=== PATIENT | female | born 1945 | race Caucasian/White ===

== ENCOUNTER 2024-04-12 23:43 | Inpatient (IN) | payer OTHER, SELFPAY ==
[2024-04-12 14:09] VITALS: BMI 51.4
[2024-04-12 14:10] VITALS: BP 164/61
[2024-04-12 14:33] LABS: % Basophils 0.3 % (0-2); % Eosinophils 0.8 % (0-6); % Immature Granulocytes 0.5 % (0-0.5); % Lymphocytes 11.7 % (20.5-51.1); % Monocytes 4.4 % (1.7-9.3); % Neutrophils 82.3 % (42.2-75.2); Absolute Eosinophils 0.1 10^3/uL (0-0.7); Absolute Monocytes 0.4 10^3/uL (0.1-0.6); Absolute Neutrophils 7.3 10^3/uL (1.4-6.5); Hemoglobin 7.2 g/dL (12.0-16.0); Mean Corp Hgb Conc. 34.3 g/dL (33.0-37.0); Mean Corpuscular Hgb 33.3 pg (27.0-31.0); Mean Corpuscular Volume 97.2 fL (81.0-99.0); Mean Platelet Volume 11.1 fL (7.4-10.4); Nucleated Red Blood Cells % 0 %; Platelet Count 217 10^3/uL (130-400); Red Blood Cell Count 2.16 10^6/uL (4.20-5.40); Red Cell Dist. Width 12.6 % (11.5-14.5); White Blood Cell Count 8.8 10^3/uL (4.8-10.8)
[2024-04-12 14:52] LABS: ALT (SGPT) 16 U/L (0-35); AST (SGOT) 30 U/L (14-36); Albumin 3.8 g/dl (3.5-5.0); Alkaline Phosphatase 136 U/L (38-126); Blood Urea Nitrogen 41 mg/dl (7-17); Calcium 8.7 mg/dl (8.4-10.2); Carbon Dioxide 16 mmol/L (22-30); Chloride 108 mmol/L (98-107); Estimated Creatinine Clearance 22 ml/min; Glucose 150 mg/dl (70-99); Potassium 5.2 mmol/L (3.5-5.1); Sodium 136 mmol/L (135-145); Total Bilirubin 0.5 mg/dl (0.2-1.3); Total Protein 6.2 g/dl (6.3-8.2); eGFR 16.17
--- NOTE | 2024-04-12 15:01 | ED.GENMED ---
History of Present Illness
<Mariela Gallagher PA-C - Last Filed: 04/12/24 23:59>
General
Chief Complaint: Vaginal Bleeding
Source: patient
Exam Limitations: none
Time Seen by Provider: 04/12/24 14:54
Nursing documentation reviewed up to this point in time: agreed with
History of Present Illness
History of Present Illness:
78-year-old female with past medical history of diabetic nephropathy, sleep apnea, hypertension, morbid obesity bedbound at baseline, presenting emergency department today with concerns of persistent vaginal bleeding. Patient reports that she has
known mass within her abdomen, she is unsure exactly where the mass is, unsure of the character of the mass. Believes it may be uterine mass. States that this mass causes her to have bleeding once a month. Her bleeding will usually last a week
and then resolved. She states that she has had to have blood transfusions in the past for this bleeding. She states that the bleeding this month has been a lot heavier and has persisted over a week. Patient states that she has been passing clots.
Patient states that her stools been darker but states that this is a chronic finding as she takes an iron supplement. Patient denies abdominal pain, fevers or chills. Patient denies bleeding with bowel movements. Patient denies any rectal pain.
Patient states that she saw a chronic colonic oncologist many years ago for this problem and they talk about possibly doing a hysterectomy or D&C, however they made the decision not to intervene due to her being bedbound. Patient currently only
sees a primary care doctor and construction administrative assistant, but no longer seeks care for this mass.
Review of Systems
<Mariela Gallagher PA-C - Last Filed: 04/12/24 23:59>
Review of Systems
All Other Systems: ROS reviewed and negative except as documented in HPI and ROS
Phy Exam
<Mariela Gallagher PA-C - Last Filed: 04/12/24 23:59>
Physical Exam
Physical Exam:
General: Patient is well appearing and in no acute distress; non-toxic
Skin: Warm and dry, no rashes or lesions
Head: Normocephalic, atraumatic
Eyes: Sclera non-icteric. EOMs intact. PERRLA.
Cardiac: Regular rate and rhythm, no murmur
Peripheral Vascular: Bilateral lower extremity edema
Pulm: Normal respiratory effort
Abdomen: No abdominal tenderness to palpation
Genitourinary: Active bleeding seen at the vaginal introitus. No external genital masses or lesions. No masses or lesions within the vaginal vault. Active bleeding from cervical os. No cervical masses or lesions. External hemorrhoids noted,
they are not actively bleeding. No rectal tears or lesions.
Neuro: CN II-XII intact, no focal neurologic deficits.
Psychiatric: Appropriate mood and affect.
Course
<Mariela Gallagher PA-C - Last Filed: 04/12/24 23:59>
Orders/Labs/Results
Orders:
Orders
04/12/24 14:27
Complete Blood Count/With Diff Urgent
Comprehensive Metabolic Panel Urgent
04/12/24 15:29
Type+Screen Urgent
04/12/24 16:29
Iohexol [Omnipaque] See Protocol PO NOW STA
04/12/24 16:30
CT Abd/pel (oral only)-[facility] Only Urgent
Comment:
Reason For Exam: persistent vaginal bleeding, intraabdominal mass
04/12/24 17:26
Blood Bank Products [* Blood Bank Products] Urgent
Blood Bank Products: *Packed RBC Leuko(PRBC's)
Quantity: 1
Transfuse Today: Yes
Reason: Bleeding
04/12/24 21:12
Tranexamic Acid 1000 mg/100 ml [Tranexamic Acid] 1,000 mg in 100 ml IV ONCE
04/12/24 23:43
Admit/Transfer Patient As Directed
Co-Sign Provider:
Level of Care: Inpatient admission
Assign to:: Telemetry
Physician / Group: Grabiel
Diagnosis: DUB, Acute Blood Loss Anemia
Reason for Telemetry: Arrhythmia
Date to Stop Telemetry: 04/15/24
Time to Stop Telemetry: 11:00
Reason for Hospitalization: DUB, Acute Blood Loss Anemia
Expected length of stay greater than two midnights?: Yes
ELOS- Estimated Length of Stay in days: 4
I certify the patient meets the requirements for IP care: Yes
Code Status As Directed
Resuscitation Status: Do not resuscitate
Reached after discussion with pt or family/Healthcare POA: Yes
04/12/24 23:44
DNR Bracelet Application ONCE
04/15/24 11:00
DC Protocol for Telemetry ONCE
Abnormal Lab Results
04/12/24 04/12/24
14:27 15:29
RBC 2.16 L 10^6/uL
(4.20-5.40)
Hgb 7.2 L g/dL
(12.0-16.0)
Hct 21.0 L %
(37.0-47.0)
MCH 33.3 H pg
(27.0-31.0)
MPV 11.1 H fL
(7.4-10.4)
Absolute Neuts (auto) 7.3 H 10^3/uL
(1.4-6.5)
Absolute Lymphs (auto) 1.0 L 10^3/uL
(1.2-3.4)
Neutrophils % 82.3 H %
(42.2-75.2)
Lymphocytes % 11.7 L %
(20.5-51.1)
Potassium 5.2 H mmol/L
(3.5-5.1)
Chloride 108 H mmol/L
(98-107)
Carbon Dioxide 16 L mmol/L
(22-30)
BUN 41 H mg/dl
(7-17)
Creatinine 2.9 H mg/dL
(0.6-1.0)
Glucose 150 H mg/dl
(70-99)
Alkaline Phosphatase 136 H U/L
(38-126)
Total Protein 6.2 L g/dl
(6.3-8.2)
Crossmatch IS Only See Detail
04/12/24 14:27
04/12/24 14:27
Vital Signs
Initial and Last Documented VS:
Initial Vital Signs
Temp Pulse Resp BP Pulse Ox
99.3 F 82 18 164/61 100
04/12/24 14:10 04/12/24 14:10 04/12/24 14:10 04/12/24 14:10 04/12/24 14:10
Last Documented Vital Signs
Temp Pulse Resp BP Pulse Ox
98.7 F 71 18 147/63 100
04/12/24 21:52 04/12/24 21:52 04/12/24 21:52 04/12/24 21:52 04/12/24 21:52
<Jamir Dickson, DO - Last Filed: 04/12/24 17:37>
Orders/Labs/Results
Orders:
Orders
04/12/24 14:27
Complete Blood Count/With Diff Urgent
Comprehensive Metabolic Panel Urgent
04/12/24 15:29
Type+Screen Urgent
04/12/24 16:29
Iohexol [Omnipaque] See Protocol PO NOW STA
04/12/24 16:30
CT Abd/pel (oral only)-[facility] Only Urgent
Comment:
Reason For Exam: persistent vaginal bleeding, intraabdominal mass
04/12/24 17:26
Blood Bank Products [* Blood Bank Products] Urgent
Blood Bank Products: *Packed RBC Leuko(PRBC's)
Quantity: 1
Transfuse Today: Yes
Reason: Bleeding
04/12/24 21:12
Tranexamic Acid 1000 mg/100 ml [Tranexamic Acid] 1,000 mg in 100 ml IV ONCE
04/12/24 23:43
Admit/Transfer Patient As Directed
Co-Sign Provider:
Level of Care: Inpatient admission
Assign to:: Telemetry
Physician / Group: Grabiel
Diagnosis: DUB, Acute Blood Loss Anemia
Reason for Telemetry: Arrhythmia
Date to Stop Telemetry: 04/15/24
Time to Stop Telemetry: 11:00
Reason for Hospitalization: DUB, Acute Blood Loss Anemia
Expected length of stay greater than two midnights?: Yes
ELOS- Estimated Length of Stay in days: 4
I certify the patient meets the requirements for IP care: Yes
Code Status As Directed
Resuscitation Status: Do not resuscitate
Reached after discussion with pt or family/Healthcare POA: Yes
04/12/24 23:44
DNR Bracelet Application ONCE
04/15/24 11:00
DC Protocol for Telemetry ONCE
Abnormal Lab Results
04/12/24 04/12/24
14:27 15:29
RBC 2.16 L 10^6/uL
(4.20-5.40)
Hgb 7.2 L g/dL
(12.0-16.0)
Hct 21.0 L %
(37.0-47.0)
MCH 33.3 H pg
(27.0-31.0)
MPV 11.1 H fL
(7.4-10.4)
Absolute Neuts (auto) 7.3 H 10^3/uL
(1.4-6.5)
Absolute Lymphs (auto) 1.0 L 10^3/uL
(1.2-3.4)
Neutrophils % 82.3 H %
(42.2-75.2)
Lymphocytes % 11.7 L %
(20.5-51.1)
Potassium 5.2 H mmol/L
(3.5-5.1)
Chloride 108 H mmol/L
(98-107)
Carbon Dioxide 16 L mmol/L
(22-30)
BUN 41 H mg/dl
(7-17)
Creatinine 2.9 H mg/dL
(0.6-1.0)
Glucose 150 H mg/dl
(70-99)
Alkaline Phosphatase 136 H U/L
(38-126)
Total Protein 6.2 L g/dl
(6.3-8.2)
Crossmatch IS Only See Detail
04/12/24 14:27
04/12/24 14:27
Vital Signs
Initial and Last Documented VS:
Initial Vital Signs
Temp Pulse Resp BP Pulse Ox
99.3 F 82 18 164/61 100
04/12/24 14:10 04/12/24 14:10 04/12/24 14:10 04/12/24 14:10 04/12/24 14:10
Last Documented Vital Signs
Temp Pulse Resp BP Pulse Ox
98.7 F 71 18 147/63 100
04/12/24 21:52 04/12/24 21:52 04/12/24 21:52 04/12/24 21:52 04/12/24 21:52
<Mariela Gallagher PA-C - Last Filed: 04/12/24 23:59>
MDM/Problems Addressed
Differential Diagnosis Includes:
Differentials include uterine fibroids, endometrial cancer, ovarian cancer, cervical lesion, adenomyosis,
MDM/Problems Addressed:
Vaginal Bleeding, known intra-abdominal mass:
78-year-old female with past medical history of diabetic nephropathy, sleep apnea, hypertension, morbid obesity bedbound at baseline, presenting emergency department today with concerns of persistent vaginal bleeding. Patient reports that she has
known mass within her abdomen, she is unsure exactly where the mass is, unsure of the character of the mass. On exam, she has no abdominal tenderness to palpation, she is chronically ill-appearing but nontoxic, she does have a lot of bleeding noted
in the vaginal vault and bleeding coming from the cervical os, however no lesions or masses in the vaginal vault. Patient does have dark stool reports that this is because of her iron supplementation. Her hemoglobin is 7.2 and her hematocrit is
21. Patient was given blood here in the emergency department. Her CT scan demonstrates a large hemorrhagic uterine fundus fibroid measuring up to 22 cm with probable blood products going to the endometrium.
I discussed findings with patient, discussed this case with her INTER COM INSTALLER on-call who reports that considering patient's significant comorbidities and size, she would not personally operate on her and she would refer her to a gynecologic oncologist.
Per INTER COM INSTALLER recommendations, she was given a dose of TXA here in the emergency department. Patient is stable for discharge, however when discussing outpatient follow-up with patient, patient reports that she is morbidly obese and all her doctors are
seen via to telehealth or come to her home. Considering this, her persistent bleeding, will refer for admission for further monitoring and oncologic evaluation,.
Chronic conditions affecting care:
diabetic nephropathy, sleep apnea, hypertension, morbid obesity bedbound at baseline
Acute Exacerbation and/or Progression of Chronic Illness:
diabetic nephropathy, sleep apnea, hypertension, morbid obesity bedbound at baseline
<Mariela Gallagher PA-C - Last Filed: 04/12/24 23:59>
*Pulse Oximetry
Patient hypoxic: no
*Critical Care Note
Total Time (30-74mins, 75-104mins- exclusive of procedures): Not Applicable
Data Reviewed
Review of Other/Old Records Reveals: Records (No previous ER records to review) and Discharge Summary (No discharge summaries in [facility] to review )
Source: patient and records
<Mariela Gallagher PA-C - Last Filed: 04/12/24 23:59>
Patient Management
Discussion with other providers: [employer] (OBGYN)
Escalation/DeEscalation of care consider admission/obs:
Admission indicated. Case reviewed with my attendings Dr. Dickson and Dr. Kruger.
ED Attending Note
<Mariela Gallagher PA-C - Last Filed: 04/12/24 23:59>
-
Portions of this chart may have been created with voice recognition software.� Occasional wrong word or��sound alike� substitutions may have occurred due to the inherent limitations of voice recognition software.
<Jamir Dickson DO - Last Filed: 04/12/24 17:37>
ED Attending Note
Patient seen and examined by attending physician: Yes
I performed the substantive portion of visit, reviewed & personally made and approve the management plan that is documented in note by myself or CATHI.: Yes
ED Attending Note:
Seen with PA examined independently
Chronically ill-appearing female send vaginal bleeding the renal mass for about 10 years worsened recently
Chronic anemia chronic renal insufficiency apparently has seen a specialist previously but not recently,
Appears chronically ill, will check type and screen, check CT scan disposition pending will try to confirm her goals of care
Discharge Plan
Departure
Patient Disposition: Admit
Date of Disposition: 04/12/24
Time of Disposition: 21:44
Admit to: Med/Surg
Presentation/result/management discussed w/ accepting MD/DO: Hospitalist
Patient with high blood pressure during this ER visit?: Yes
Condition: Fair
Discharge Problem:
Uterine fibroid, Vaginal bleeding
Prescriptions:
No Action
atorvastatin 40 mg Tablet
40 mg PO DAILY
sodium bicarbonate 650 mg Tablet
650 mg PO BID
folic acid 1 mg Tablet
1 mg PO DAILY
sertraline 50 mg Tablet
50 mg PO DAILY
cholecalciferol (vitamin D3) 25 mcg (1,000 unit) Tablet
25 mcg PO DAILY
ferrous sulfate 324 mg (65 mg iron) Tablet,Delayed Release (Dr/Ec)
324 mg PO DAILY
fluticasone prp-sod.chl,bicarb 50 mcg- 0.9 % Kit,[place] Suspension And [place]
2 spray INTRANASAL DAILY PRN (Reason: rhinitis)
Centrum Minis Women 50 Plus 4 mg iron-200 mcg-25 mcg Tablet
1 tab PO DAILY
Referrals:
NONE,* [Family Provider] -
Discharge Date and Time
Print Language: TAJIK
[2024-04-12] MEDS: OMNIPAQUE 50 ML PO (18:00)
[2024-04-12 19:25] VITALS: BP 147/69
[2024-04-12 20:26] VITALS: BP 134/101
[2024-04-12 20:45] VITALS: BP 140/58
[2024-04-12 21:05] VITALS: BP 143/72
[2024-04-12 21:52] VITALS: BP 147/63
[2024-04-12] MEDS: TRANEXAMIC ACID 100 IV (21:55)
--- NOTE | 2024-04-12 23:46 | HPS.HSE ---
Family Physician
-
Family Physician: * NONE
Chief Complaint
-
Bleeding
History of Present Illness
Patient is a 78y F with PMH significant for morbid obesity and bed-bound status who presents to ED for evaluation of vaginal bleeding. Patient states that she has had intermittent vaginal bleeding in fairly small amounts for the past week or so.
Over the past two days, the bleeding has lai much more significant with very large clots also appreciated. Patient denies any pain whatsoever. She denies any lightheadedness, dizziness, dyspnea, etc. She is chronically bedbound at baseline.
Patient reports that she had similar episode in 2013 and was hospitalized at [facility] at that time. She underwent GI evaluation which was unremarkable and ultimately SERVICE ATTENDANT CAFETERIA evaluation.
She states that a D&C was attempted but was unsuccessful. She followed up for a short time following this, but then admits that she was lost to follow-up thereafter.
At the time of my examination, patient is resting comfortably in no distress.
Medical History
Past Medical History
Past Medical History: Reports Other
Additional Past Medical History:
Morbid Obesity
Diet-Controlled DM-II
Dysfunctional Uterine Bleeding
Chronically Bedridden
Viral Encephalitis / Myositis (2012)
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
Past Surgical History: Reports Other
Additional Past Surgical History:
T&A (x 2)
(x 2)
Social History
Tobacco: Non-smoker
Alcohol: None
Drug: None
Family History
Family History: Not pertinent
Allergies / Home Medications
Allergies reflects when Allergies were last updated in [facility].
Home Medications with original date entered in [facility]
Allergy/Medication List:
Allergies
Allergy/AdvReac Type Severity Reaction Status Date / Time
No Known Allergies Allergy Unverified 04/12/24 17:43
Home Medications
atorvastatin 40 mg tablet 40 mg PO DAILY 04/12/24
cholecalciferol (vitamin D3) 25 mcg (1,000 unit) tablet 25 mcg PO DAILY 04/12/24
ferrous sulfate 324 mg (65 mg iron) tablet,delayed release 324 mg PO DAILY 04/12/24
fluticasone prop.50 mcg spray,suspen-sod.chloride 0.9% nasal spray kit 2 spray intranasal DAILY PRN rhinitis 04/12/24
folic acid 1 mg tablet 1 mg PO DAILY 04/12/24
llbbhddq-ftl-gpjg 4 mg-folic acid 200 mcg-vit K 25 mcg-lutein tablet (Centrum Minis Women 50 Plus) 1 tab PO DAILY 04/12/24
sertraline 50 mg tablet 50 mg PO DAILY 04/12/24
sodium bicarbonate 650 mg tablet 650 mg PO BID 04/12/24
Review of Systems
-
History Source: Patient
A 12 point ROS was completed and negative except as noted: Yes
Constitutional: Denies Fever or Chills
Respiratory: Denies Cough or Trouble Breathing
Cardiac: Denies Chest Pain or Palpitations
Abdomen/GI: Reports Other (Umbilical hernia); Denies Abdominal Pain, Nausea, Vomiting or Diarrhea
: Reports Incontinence (chronic) and Other (Vaginal bleeding / clots.); Denies Dysuria or Frequency
Musculoskeletal: Denies Joint Pain
Neurological: Denies Dizzy or Headache
Psych: Denies Depression or Anxiety
Physical Exam
Vital Signs
Vital Signs
Temp Pulse Resp BP Pulse Ox
98.7 F 71 18 147/63 100
04/12/24 21:52 04/12/24 21:52 04/12/24 21:52 04/12/24 21:52 04/12/24 21:52
Physical Exam
General: Other (Morbidly obese 78y F in no acute distress.)
HEENT: Other (Thick neck, rounded facies.)
Respiratory: Other (Decreased BS bilaterally - otherwise clear.)
Cardiac: S1/S2, Regular Rhythm and Murmur (II/ TOBY)
GI: Other (Obese, large umbilical hernia mildly tender but reducible. )
Musculoskeletal: No Clubbing and No Cyanosis
Neuro: AO x 3
Laboratory Results
-
04/12/24 14:27
04/12/24 14:27
Laboratory Results
Total Bilirubin 0.5 mg/dl (0.2-1.3) 04/12/24 14:27
AST 30 U/L (14-36) 04/12/24 14:27
ALT 16 U/L (0-35) 04/12/24 14:27
Alkaline Phosphatase 136 U/L (38-126) H 04/12/24 14:27
Impression/Plan
-
A/P: Patient is a 78y F with PMH significant for morbid obesity, DM-II and CKD V who presents to ED for evaluation of vaginal bleeding.
DUB / Uterine Fibroid
Acute Blood Loss Anemia on Anemia of Chronic Disease
- Admit for further evaluation and treatment.
- PRBCs given in the ED.
- IV TXA administered in the ED.
- SERVICE ATTENDANT CAFETERIA evaluation for additional recommendations.
- Follow H&H and provide additional blood products as needed.
CKD V
Hyperkalemia secondary to the above
Chronic Non-Gapped Metabolic Acidosis secondary to the above
- SCr = 2.9 which is likely consistent with baseline (patient reports eGFR about 13).
- Patient has been clear that she is not interested in HD should that be necessary.
- Avoid nephrotoxic medications.
- Avoid hypotension due to blood / volume losses.
- Follow for changes in renal function.
- Continue supplemental PO bicarb.
Diet-Controlled DM-II
- Patient states that she 'used to have' DM-II.
- Check A1C.
- Not currently on any DM medications.
Anxiety / Depression
- Stable. Continue sertraline.
Morbid Obesity
Chronically Bedbound
- Affects all aspects of care.
- Encourage healthy diet.
- Significant increase in activity not likely in this chronically bedbound individual.
DVT Prophylaxis: SCDs
Code Status: DNR
[2024-04-13] VITALS (15 sets, daily range): BP systolic 121–194; BP diastolic 54–78; PULSE 66; BMI 57.3
--- NOTE | 2024-04-13 01:37 | PTCARENOTE ---
Pt arrived from ED via stretcher and was pulled over to bed. Pt is AAOx3, VSS, w/o complaints of pain. Pt has large and heavy blood clots coming from vaginal area. Pt denies lightheadedness or dizziness. Pt is resting comfortably w/ call ricks within
reach.
[2024-04-13 02:20] LABS: Iron 98 ug/dl (37-170)
[2024-04-13 02:29] LABS: Percent Saturation 44 % (20-50); Total Iron Binding Capacity 220 ug/dl (265-497)
[2024-04-13 08:32] LABS: Mean Corpuscular Hgb 31.3 pg (27.0-31.0); Mean Corpuscular Volume 91.8 fL (81.0-99.0); Red Blood Cell Count 2.08 10^6/uL (4.20-5.40); Red Cell Dist. Width 14.6 % (11.5-14.5); White Blood Cell Count 6.1 10^3/uL (4.8-10.8)
[2024-04-13 08:41] LABS: APTT 33.5 Sec (23.4-35.0)
[2024-04-13] MEDS: ZOLOFT 50 MG PO (09:09)
[2024-04-13] MEDS: LIPITOR 40 MG PO (09:09)
[2024-04-13] MEDS: SODIUM BICARBONATE 650 MG PO ×2 (09:09→21:08)
[2024-04-13 09:12] LABS: Hemoglobin 6.5 g/dL (12.0-16.0)
[2024-04-13 09:13] LABS: Hematocrit 19.1 % (37.0-47.0)
[2024-04-13 09:15] LABS: Blood Urea Nitrogen 44 mg/dl (7-17); Calcium 8.5 mg/dl (8.4-10.2); Carbon Dioxide 21 mmol/L (22-30); Chloride 108 mmol/L (98-107); Estimated Creatinine Clearance 19 ml/min; Glucose 101 mg/dl (70-99); Potassium 5.8 mmol/L (3.5-5.1); Sodium 136 mmol/L (135-145); eGFR 14.93
--- NOTE | 2024-04-13 09:42 | CON.MD ---
Consultation - Medical
-
78 yo with 10 y of VB was seen 10 y ago at [facility] in [place]. Told it was a fibroid - they tried D+C but were unable to do it. She then saw TRESTLE BUILDER Onc at [facility] (a female - cant remeber name). They were unable to do exam. That doctor
then left and she never followed up. She has had intermittent VB since then. However over the last week has gotten heavier. Went to ER and had hgb 7 and was given one unit of blood. Hgb this am is 6.5. She sees nephrology as telehealth. From
their notes I can see hgb was 8.[address] scan in ER showed 22 cm hemorrhagic fibroid and blood/clot in uterine cavity. No lymphadenopathy no free fluid. Tried to do exam today in hospital bed for pap and endo bx. Was unable to see or
to palpate cervix. I understand why D+C and exam were unable to be done 10 years ago.
Disc case with IR for poss MRI and UAE. They looked at CT and agreed to MRI and poss eval for UAE. I will touch base with Dr. Patiño re plan on this pt. Do not feel he needs to see her at this point.
PE
Lungs clear
CV - RRR
Abd - soft - non tender - + LARGE umbilical hernia
Pelvic - EG normal + blood
Vagina - large amt of clot - after evacuated - normal mucosa
Cervix - unable to see or palpate on exam
Uterus - non palp
Was unable to do pap or endo bx
Ass - 78yo with prob fibroid and severe VB
Anemia
Plan -
Need to consider malignancy but 10 y nature of problem and CT with no LN enlarged make one think benign
Plan MRI and poss UAE - will obtain IR consult
Transfusion mgmt by hospitalist
Will disc pt with Haroon after MRI done - no official consult needed by him at this time
See dictated note for compete consult
--- NOTE | 2024-04-13 10:38 | W.PN.HOSP.TC ---
Addendum entered and electronically signed by Sue Martinez MD 04/13/24 12:39:
IR procedure would take place Monday or Monday, OK to order diet
discussed with Dr. Broussard and will order tranexemic acid TID. Although risk of clotting, given significant bleeding, benefits outweigh risks
patient updated
Original Note:
Today's Communication/Plan
-
see plan
Assessment / Plan
Assessment / Plan
A/P: Patient is a 78y F with PMH significant for morbid obesity, DM-II and CKD V (baseline creatinine 2.4-2.9) who presents to ED for evaluation of vaginal bleeding.
DUB / Uterine Fibroid
Acute Blood Loss Anemia on Anemia of Chronic Disease
- Admitted for further evaluation and treatment.
- PRBCs given in the ED, Hg 6.5 this AM, will transfuse an additional unit
- IV TXA administered in the ED.
- TRANSITIONS MANAGER evaluation appreciated
- plan for MRI and possible IR guided UAE
CKD V
Hyperkalemia secondary to the above
Chronic Non-Gapped Metabolic Acidosis secondary to the above
- SCr = 3.1 this AM
- Patient has been clear that she is not interested in HD should that be necessary.
- Avoid nephrotoxic medications.
- Continue supplemental PO bicarb.
- start Lokelma
- additional PRBC as above and will also give 500 cc fluid
-repeat K at 3 PM
Diet-Controlled DM-II
- Patient states that she 'used to have' DM-II.
- Check A1C.
- Not currently on any DM medications.
Anxiety / Depression
- Stable. Continue sertraline.
Morbid Obesity
Chronically Bedbound
- Affects all aspects of care.
- Encourage healthy diet.
- Significant increase in activity not likely in this chronically bedbound individual.
DVT Prophylaxis: SCDs
Code Status: DNR
51 minutes spent on patient evaluation, medical decision making, coordination of care
Anticipated Discharge: > 48 hours
Subjective/Interval History
-
Date of Service: April 13, 2024
blood clots this AM
no chest pain or shortness of breath
denies swelling
Objective Data
-
Labs:
Laboratory Results
04/13/24
07:37
WBC 6.1
Hgb 6.5 L*
Hct 19.1 L*
Plt Count Pending
PT 16.0 H
INR 1.30
APTT 33.5
Sodium 136
Potassium 5.8 H
Chloride 108 H
Carbon Dioxide 21 L
BUN 44 H
Creatinine 3.1 H
Glucose 101 H
Calcium 8.5
Vital Signs:
Vital Signs
Temp Pulse Resp BP Pulse Ox
98.1 F 81 22 175/72 99
04/13/24 07:24 04/13/24 07:24 04/13/24 07:24 04/13/24 07:24 04/13/24 07:24
I&O
04/12/24 04/13/24 04/14/24
06:59 06:59 06:59
Intake Total 250 / 250
Balance 250 / 250
Review of Systems
-
History Source: Patient
All other systems: Reviewed and negative
Physical Exam
-
General: Obese
HEENT: PERRLA
Respiratory: Clear to Auscultation; Negative Wheezes
Cardiac: Regular Rhythm and S1/S2
GI: Soft and Nontender
Musculoskeletal: No Edema
Skin: Warm and Dry; Negative Rash
Neuro: AO x 3
Psych: Calm
Data Reviewed
-
Diagnostic Radiology: Report Reviewed by me
Labs: Labs Reviewed by me
[2024-04-13 10:58] LABS: Glycohemoglobin (HgbA1c) 5.2 % (4.0-5.6)
[2024-04-13] MEDS: NSS 500 IV (10:59)
[2024-04-13] MEDS: LOKELMA 10 GRAM PO ×3 (10:59→17:20)
[2024-04-13] MEDS: CYKLOKAPRON 1300 MG PO ×2 (12:50→21:08)
[2024-04-13 14:42] LABS: Hemoglobin 7.8 g/dL (12.0-16.0)
[2024-04-13 14:58] LABS: Potassium 5.7 mmol/L (3.5-5.1)
--- NOTE | 2024-04-13 18:39 | PTCARENOTE ---
Dr. Martinez made aware pt. b/p 182/65 HR 74. New orders obtained.
[2024-04-13] MEDS: CATAPRES 0.1 MG PO (18:44)
[2024-04-13 22:59] LABS: Hemoglobin 7.4 g/dL (12.0-16.0)
[2024-04-14] VITALS (8 sets, daily range): BP systolic 152–195; BP diastolic 64–96; PULSE 62
--- NOTE | 2024-04-14 06:18 | W.PN.GYN.DG ---
Today's Communication / Plan
-
Await MRI reading
IR to see pt today to eval for UAE
Cont to check hgb and assess bleeding. Would keep hgb 8.0 or higher especially pre procedure
Assessment / Plan
-
Assessment: Pt admitted with anemia/ vaginal bleeding from hemorrhagic fibroid
s/p 2 units of PRBCs Hgb stable post transfusion
Pt with on going bleeding although less overall
Plan:
MRI done but not read- await reading
IR to see pt today to eval for possible UAE
Not a surgical candidate
Cont TXA for now- wouldn't do more than a few days given pt's renal status
Would transfuse to have Hgb at least 8.0 or higher especially pre procedure
Subjective / Objective Data
Subjective Data
No complaints. Good night sleep. No abd pain. No SOB or CP
Objective Data
Vital Signs
Temp Pulse Resp BP Pulse Ox
97.7 F 64 20 155/68 99
04/14/24 03:18 04/14/24 03:18 04/14/24 03:18 04/14/24 03:18 04/14/24 03:18
Intake & Output
04/12/24 04/13/24 04/14/24
06:59 06:59 06:59
Intake Total 250 / 250 2220 / 2220
Balance 250 / 250 2220 / 2220
Intake:
Oral fluids 720 / 720
IV fluids (Total) 1000 / 1000
Blood products 250 / 250
Blood Product Amount Infused ( 250 / 250 250 / 250
mL)
Packed Rbc Leukoreduced Unit 250 / 250
[id number]
Packed Rbc Leukoreduced Unit 250 / 250
[id number]
Other:
How many times incontinent 2
MODERATE amount urine
How many times incontinent 1
SATURATED amount urine
Physical Exam
-
Abdomen: Soft, Nontender and Other
Extremities: No Calf Tenderness
Other Findings:
Large unbilical hernia
[2024-04-14] MEDS: LOKELMA 10 GRAM PO (06:19)
[2024-04-14 07:59] LABS: Hemoglobin 7.4 g/dL (12.0-16.0); Mean Corp Hgb Conc. 35.2 g/dL (33.0-37.0); Mean Corpuscular Hgb 33.2 pg (27.0-31.0); Mean Corpuscular Volume 94.2 fL (81.0-99.0); Red Blood Cell Count 2.23 10^6/uL (4.20-5.40); Red Cell Dist. Width 14.3 % (11.5-14.5); White Blood Cell Count 5.8 10^3/uL (4.8-10.8)
[2024-04-14 08:33] LABS: Blood Urea Nitrogen 42 mg/dl (7-17); Calcium 8.1 mg/dl (8.4-10.2); Carbon Dioxide 20 mmol/L (22-30); Chloride 109 mmol/L (98-107); Estimated Creatinine Clearance 20 ml/min; Glucose 83 mg/dl (70-99); Potassium 4.6 mmol/L (3.5-5.1); Sodium 137 mmol/L (135-145); eGFR 15.53
[2024-04-14] MEDS: CYKLOKAPRON 1300 MG PO (08:48)
[2024-04-14] MEDS: SODIUM BICARBONATE 650 MG PO (08:48)
[2024-04-14] MEDS: LIPITOR 40 MG PO (08:48)
[2024-04-14] MEDS: ZOLOFT 50 MG PO (08:48)
--- NOTE | 2024-04-14 09:35 | W.PN.UPDATE ---
Update Note
Progress Note Update
78 yo with anemia secondary to hemorrhagic fibroid uterus. PMHx includes renal insufficiency, DM, morbid obesity. Has received two units of blood so far and TXA overnight with improved bleeding overnight. H/H and vitals stable. In good spirits when
seeing her this morning. Given age and co-morbidities, not a candidate for surgery. CT and MRI showed enlarged uterus with one vs two irregular appearing fibroids, likely related to hemorrhage/necrosis. UFE discussed in detail. Explained higher risk
of groin complication secondary to patient size and risk of contrast induced nephropathy. Post embolization syndrome also discussed. We can try to use carbon dioxide instead of contrast to reduce contrast load but imaging will likely be suboptimal
secondary to patient size. Pt would like to discuss with brother first before agreeing to proceeding. Will put on schedule for tomorrow.
Plan:
- Would continue conservative measures
- UFE for tomorrow, if patient becomes unstable or bleeding acutely worsens can perform earlier
- NPO past midnight
- Would hydrate as much as possible to minimize risk of CAMELIA
--- NOTE | 2024-04-14 10:08 | W.PN.HOSP.TC ---
Addendum entered and electronically signed by Sue Martinez MD 04/14/24 16:41:
updated brother and Dr. Garcia will talk to him as well
case briefly discussed with renal. given possibility of contrast use tomorrow, will start sodium bicarb fluids overnight. If contrast is confirmed to have been used tomorrow then team to formally consult renal.
Addendum entered and electronically signed by Sue Martinez MD 04/14/24 14:25:
with persistently elevated BP, will start daily Nifedipine
Original Note:
Today's Communication/Plan
-
F/U MRI
NPO after MN for UAE by IR tomorrow AM
transfuse additional unit, monitor Hg
appreciate GEOLOGY FACULTY MEMBER
Assessment / Plan
Assessment / Plan
A/P: Patient is a 78y F with PMH significant for morbid obesity, DM-II and CKD V (baseline creatinine 2.4-2.9) who presents to ED for evaluation of vaginal bleeding.
DUB / Uterine Fibroid
Acute Blood Loss Anemia on Anemia of Chronic Disease
- s/p 2 units PRBC thus far; will transfuse another unit this AM (Hg 7.4)
- IV TXA administered in the ED; oral dosing ordered yesterday after discussion with GEOLOGY FACULTY MEMBER. Given renal function will decrease dosing
- GEOLOGY FACULTY MEMBER evaluation appreciated
- F/U MRI results today
- plan for UAE with IR tomorrow, NPO after MN
CKD V
Hyperkalemia secondary to the above
Chronic Non-Gapped Metabolic Acidosis secondary to the above
- creatinine stable
- Patient has been clear that she is not interested in HD should that be necessary.
- Avoid nephrotoxic medications.
- Continue supplemental PO bicarb.
- s/p Lokelma with normalization of K - stop further dosing
Diet-Controlled DM-II
- Patient states that she 'used to have' DM-II.
- Check A1C.
- Not currently on any DM medications.
Anxiety / Depression
- Stable. Continue sertraline.
Hypertensive Urgency
-this happened post exertion getting into MRI, again this AM
-will continue clonidine PRN
-hold on daily dosing for now given bleeding but may need initiation of anti-HTN medications pre DC
Morbid Obesity
Chronically Bedbound
- Affects all aspects of care.
- Encourage healthy diet.
- Significant increase in activity not likely in this chronically bedbound individual.
DVT Prophylaxis: SCDs
Code Status: DNR
51 minutes spent on patient evaluation, medical decision making, coordination of care
Anticipated Discharge: > 48 hours
Subjective/Interval History
-
Date of Service: April 14, 2024
feeling well
no chest pain or shortness of breath
no leg cramping
bleeding has lessened
Objective Data
-
Labs:
Laboratory Results
04/13/24 04/14/24
22:52 06:13
WBC 5.8
Hgb 7.4 L 7.4 L
Hct 21.0 L
Plt Count
Sodium 137
Potassium 4.6
Chloride 109 H
Carbon Dioxide 20 L
BUN 42 H
Creatinine 3.0 H
Glucose 83
Calcium 8.1 L
Vital Signs:
Vital Signs
Temp Pulse Resp BP Pulse Ox
98.1 F 64 20 171/81 98
04/14/24 07:45 04/14/24 07:45 04/14/24 07:45 04/14/24 07:45 04/14/24 07:45
I&O
04/13/24 04/14/24 04/15/24
06:59 06:59 06:59
Intake Total 250 / 250 2460 / 2460
Balance 250 / 250 2460 / 2460
Review of Systems
-
History Source: Patient
All other systems: Reviewed and negative
Physical Exam
-
General: No Apparent Distress
HEENT: PERRLA
Respiratory: Clear to Auscultation; Negative Wheezes
Cardiac: Regular Rhythm and S1/S2
GI: Soft and Nontender
Musculoskeletal: No Edema
Skin: Warm and Dry; Negative Rash
Neuro: AO x 3
Psych: Calm
Data Reviewed
-
Diagnostic Radiology: Report Reviewed by me
Labs: Labs Reviewed by me
[2024-04-14] MEDS: CATAPRES 0.1 MG PO (10:59)
--- NOTE | 2024-04-14 14:27 | PTCARENOTE ---
Dr. Martinez made aware of pt. b/p remains elevated post PRN clonidine dose. New orders to follow. Will monitor.
[2024-04-14] MEDS: PROCARDIA XL (EXTENDED RELEASE) 30 MG PO (14:33)
[2024-04-14 16:26] LABS: Hemoglobin 8.4 g/dL (12.0-16.0)
--- NOTE | 2024-04-14 16:51 | W.PN.UPDATE ---
Update Note
Progress Note Update
per Dr. Garcia, patient will need at least some contrast given body habitus. I called patient again. She understands high risk on kidneys from contrast. She states 'I am either dying from bleeding or kidney failure and would rather test my
kidneys.' She would never want dialysis. Unfortunately, there's no other option to control bleeding and patient understands this. Case discussed with Dr. Villalobos and she will be placed on sodium bicarb overnight IVF. repeat labs in AM. Formal renal
consult tomorrow.
[2024-04-14] MEDS: SODIUM BICARBONATE 1150 MEQ IV (21:29)
[2024-04-15] VITALS (18 sets, daily range): BP systolic 58–187; BP diastolic 54–100
[2024-04-15 04:18] LABS: Hematocrit 21.5 % (37.0-47.0); Hemoglobin 7.7 g/dL (12.0-16.0); Mean Corp Hgb Conc. 35.8 g/dL (33.0-37.0); Mean Corpuscular Hgb 32.4 pg (27.0-31.0); Mean Corpuscular Volume 90.3 fL (81.0-99.0); Mean Platelet Volume 10.9 fL (7.4-10.4); Platelet Count 107 10^3/uL (130-400); Red Blood Cell Count 2.38 10^6/uL (4.20-5.40); Red Cell Dist. Width 14.9 % (11.5-14.5)
[2024-04-15 04:39] LABS: Blood Urea Nitrogen 40 mg/dl (7-17); Carbon Dioxide 18 mmol/L (22-30); Chloride 110 mmol/L (98-107); Estimated Creatinine Clearance 22 ml/min; Glucose 92 mg/dl (70-99); Magnesium 2.2 mg/dl (1.6-2.3); Potassium 4.5 mmol/L (3.5-5.1); Sodium 136 mmol/L (135-145); eGFR 17.62
--- NOTE | 2024-04-15 05:36 | W.PN.UPDATE ---
Update Note
Progress Note Update
Hgb level dropped down from 8.4 to 7.7 this am. One unit of blood ordered as recommended by WELL LOGGING CAPTAIN MUD ANALYSIS to keep hgb level above 8 before procedure.
--- NOTE | 2024-04-15 06:15 | PTCARENOTE ---
Pt with no significant bleeding through the night. Hgb THIS MORNING=7.7. FOREST TECHNICIAN (Aliza Valencia) made aware and 1 unit of PRBCs is given. Pt will transfused shortly.
--- NOTE | 2024-04-15 06:25 | W.PN.GYN.DG ---
Today's Communication / Plan
-
UAE per IR today
Getting transfused another unit this am to keep HBG above 8.0
d/c TXA after today given pt's renal status and hopefully won't need TXA after UAE
Agree with nephrology consult
Assessment / Plan
-
Assessment: Adm 04/12/ for Anemia/ vaginal bleeding
s/p 3 units of pRBCs
Hgb this am down to 7.7. Getting another unit of blood this morning
Continues with vaginal bleeding- much decreased since admission but still ongoing
Plan:
UAE per IR today
Getting transfused another unit this am to keep HBG above 8.0
d/c TXA after today given pt's renal status and hopefully won't need TXA after UAE
Agree with nephrology consult
Subjective / Objective Data
Subjective Data
+ small amount of vaginal bleeding as seen on her chucks by her care team who changed her this am. Pt is without complaints. Has to consented to UAE and will be done today. No CO/SOB/leg pain
Objective Data
Vital Signs
Temp Pulse Resp BP Pulse Ox
98.6 F 65 20 134/56 100
04/15/24 03:39 04/15/24 03:39 04/15/24 03:39 04/15/24 03:39 04/15/24 03:39
Intake & Output
04/13/24 04/14/24 04/15/24
06:59 06:59 06:59
Intake Total 250 / 250 2460 / 2460 2440 / 2440
Balance 250 / 250 2460 / 2460 2440 / 2440
Intake:
Oral fluids 960 / 960 1440 / 1440
IV fluids (Total) 1000 / 1000 500 / 500
Blood products 250 / 250 250 / 250
Blood Product Amount Infused ( 250 / 250 250 / 250 250 / 250
mL)
Packed Rbc Leukoreduced Unit 250 / 250
[id number]
Packed Rbc Leukoreduced Unit 250 / 250
[id number]
Packed Rbc Leukoreduced Irr 250 / 250
Unit [id number]
Other:
How many times incontinent 2
MODERATE amount urine
How many times incontinent 2 3
SATURATED amount urine
Physical Exam
-
Abdomen: Soft, Nontender and Other
Other Findings:
Obese/ + umblical hernia
Data Reviewed
-
Lab Data
04/15/24 04:07
04/15/24 04:07
[2024-04-15] MEDS: ZOLOFT 50 MG PO (07:53)
[2024-04-15] MEDS: PROCARDIA XL (EXTENDED RELEASE) 30 MG PO ×2 (07:53→17:26)
[2024-04-15] MEDS: LIPITOR 40 MG PO (07:53)
[2024-04-15] MEDS: CYKLOKAPRON 650 MG PO ×2 (07:54→20:07)
--- NOTE | 2024-04-15 09:50 | PTCARENOTE ---
1 unit of PRBCs infused, after 15 minutes no apparent signs of a transfusion reaction, vitals remained stable Pt tolerated well.
[2024-04-15] MEDS: ATIVAN 1 MG PO (12:46)
[2024-04-15] MEDS: NSS 1000 IV ×2 (12:46→23:38)
--- NOTE | 2024-04-15 12:54 | W.PN.HOSP.TC ---
Today's Communication/Plan
-
[facility] for UAE
Trend cbc
bicarb gtt
trend cr
Assessment / Plan
Assessment / Plan
A/P: Patient is a 78y F with PMH significant for morbid obesity, DM-II and CKD V (baseline creatinine 2.4-2.9) who presents to ED for evaluation of vaginal bleeding.
DUB / Uterine Fibroid
Acute Blood Loss Anemia on Anemia of Chronic Disease
- s/p 4 units PRBC so far. Repeat H/H pending
- IV TXA administered in the ED; oral dosing ordered yesterday after discussion with COCOA BEAN CLEANER. Given renal function will decrease dosing
- COCOA BEAN CLEANER evaluation appreciated
- plan for UAE with IR today
-MRI pelvis Large necrotic and hemorrhagic uterine fundus fibroid with apparent blood products spilling into and expanding the endometrium and cervical/vaginal canals.
CKD V
Hyperkalemia secondary to the above
Chronic Non-Gapped Metabolic Acidosis secondary to the above
- creatinine stable
- Patient has been clear that she is not interested in HD should that be necessary.
- Avoid nephrotoxic medications.
- Continue Bicarb infusion
- s/p Lokelma with normalization of K - stop further dosing
- Trend cr post contrast exposure.
- nephro consulted
Diet-Controlled DM-II
- Patient states that she 'used to have' DM-II.
- Check A1C.
- Not currently on any DM medications.
Anxiety / Depression
- Stable. Continue sertraline.
Hypertensive Urgency
-this happened post exertion getting into MRI, again this AM
-will continue clonidine PRN
-hold on daily dosing for now given bleeding but may need initiation of anti-HTN medications pre DC
Morbid Obesity
Chronically Bedbound
- Affects all aspects of care.
- Encourage healthy diet.
- Significant increase in activity not likely in this chronically bedbound individual.
Thrombocytopenia
-Unclear etiology for drop. Plt at 107k. trend.
DVT Prophylaxis: SCDs in setting of bleeding
Code Status: DNR
Anticipated Discharge: > 48 hours
Subjective/Interval History
-
Date of Service: April 15, 2024
mild vaginal bleeding overnight
no pelvis pain
completed PRBC transfusion
Objective Data
-
Labs:
Laboratory Results
04/15/24
04:07
WBC 6.0
Hgb 7.7 L
Hct 21.5 L
Plt Count 107 L D
Sodium 136
Potassium 4.5
Chloride 110 H
Carbon Dioxide 18 L
BUN 40 H
Creatinine 2.7 H
Glucose 92
Calcium 8.0 L
Vital Signs:
Vital Signs
Temp Pulse Resp BP Pulse Ox
98.4 F 69 20 160/65 99
04/15/24 11:23 04/15/24 12:03 04/15/24 11:23 04/15/24 12:03 04/15/24 11:23
I&O
04/14/24 04/15/24 04/16/24
06:59 06:59 06:59
Intake Total 2460 / 2460 2440 / 2440 250 / 250
Balance 2460 / 2460 2440 / 2440 250 / 250
Physical Exam
-
General: No Apparent Distress, Comfortable and Morbidly Obese
HEENT: Normocephalic, Atraumatic and Moist Mucous Membranes
Respiratory: Clear to Auscultation; Negative Wheezes
Cardiac: Regular Rhythm and S1/S2
GI: Soft, Nontender, Nondistended and Normal Bowel Sounds
Musculoskeletal: No Edema
Skin: Warm and Dry; Negative Rash
Neuro: Awake, Alert, Oriented, AO x 3 and No Motor Deficits
Psych: Calm
[2024-04-15] MEDS: ANCEF 15 MG IV (13:07)
[2024-04-15] MEDS: FLAGYL 500 MG 100 IV (13:12)
[2024-04-15] MEDS: ZOFRAN 8 MG PO (13:13)
[2024-04-15] MEDS: BENADRYL 25 MG IV (13:13)
[2024-04-15] MEDS: COMPAZINE 10 MG PO (13:13)
--- NOTE | 2024-04-15 13:27 | PTCARENOTE ---
After cleaning shelley-area per procedure, #18F chinchilla inserted by aseptic technique. Chinchilla draining clear, pale yellow urine.
--- NOTE | 2024-04-15 14:07 | W.CON.NEPH ---
Consultation
-
Date/Time Consultation Requested: 04/14/2024 17:34PM
Date/Time Consultation Performed: 04/15/2024 2:08PM
Requesting Provider: Sue Martinez
Performing Provider: Shaunna Moore
Reason for Consultation: CKD
Medical History
-
Chief Complaint: CKD
History of Present Illness:
Patient is a 78y F with PMH significant for morbid obesity and bed-bound status, CKD V, T2DM who presents to for evaluation of vaginal bleeding. Patient states that she has had intermittent vaginal bleeding in fairly small amounts for the past
week or so. Over the past two days, the bleeding has lai much more significant with very large clots also appreciated. She was found to have acute blood loss anemia and was given multiple units of pRBCs. She also undeerwent IR guided UAE. She was
given TXA as well.
Patient denies any pain currently, feeling well. She denies any lightheadedness, dizziness, dyspnea, etc. She is chronically bedbound at baseline. Patient is extremely positive
Past Medical History
Morbid Obesity
Diet-Controlled DM-II
Dysfunctional Uterine Bleeding
Chronically Bedridden
Viral Encephalitis / Myositis (2012)
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
Past Medical History: Other
Past Surgical History: Other (T&A (x 2) (x 2))
Social History
Tobacco: Non-Smoker
Alcohol: None
Drug: None
Living: Alone
Family History
Family History: Not Pertinent
Allergies / Home Medications
Allergy/AdvReac Type Severity Reaction Status Date / Time
No Known Allergies Allergy Unverified 04/12/24 17:43
�Medication �Instructions �Recorded �Confirmed �Type
atorvastatin 40 mg tablet 40 mg PO DAILY High Cholesterol 04/12/24 04/12/24 History
cholecalciferol (vitamin D3) 25 25 mcg PO DAILY Supplement 04/12/24 04/12/24 History
mcg (1,000 unit) tablet
ferrous sulfate 324 mg (65 mg 324 mg PO DAILY Supplement 04/12/24 04/12/24 History
iron) tablet,delayed release
fluticasone prop.50 mcg 2 spray intranasal DAILY PRN 04/12/24 04/12/24 History
spray,suspen-sod.chloride 0.9% rhinitis
nasal spray kit
folic acid 1 mg tablet 1 mg PO DAILY Supplement 04/12/24 04/12/24 History
ptfwqlkd-ycn-[id number] 4 mg-folic acid 1 tab PO DAILY Supplement 04/12/24 04/12/24 History
200 mcg-vit K 25 mcg-lutein tablet
(Centrum Minis Women 50 Plus)
sertraline 50 mg tablet 50 mg PO DAILY Mental 04/12/24 04/12/24 History
Health/Anxiety
sodium bicarbonate 650 mg tablet 650 mg PO BID ALKILINIZER 04/12/24 04/12/24 History
Review of Systems
-
History Source: Patient and Family
All other systems: Negative unless noted
Physical Exam
Vital Signs
Vital Signs
Temp Pulse Resp BP Pulse Ox
98.4 F 80 20 173/81 97
04/15/24 12:40 04/15/24 12:40 04/15/24 12:40 04/15/24 12:40 04/15/24 12:40
Lab Results
WBC 6.0 10^3/uL (4.8-10.8) 04/15/24 04:07
RBC 2.38 10^6/uL (4.20-5.40) L 04/15/24 04:07
Plt Count 107 10^3/uL (130-400) L D 04/15/24 04:07
Sodium 136 mmol/L (135-145) 04/15/24 04:07
Potassium 4.5 mmol/L (3.5-5.1) 04/15/24 04:07
Chloride 110 mmol/L (98-107) H 04/15/24 04:07
Carbon Dioxide 18 mmol/L (22-30) L 04/15/24 04:07
BUN 40 mg/dl (7-17) H 04/15/24 04:07
Creatinine 2.7 mg/dL (0.6-1.0) H 04/15/24 04:07
eGFR 17.62 04/15/24 04:07
Glucose 92 mg/dl (70-99) 04/15/24 04:07
Calcium 8.0 mg/dl (8.4-10.2) L 04/15/24 04:07
Albumin 3.8 g/dl (3.5-5.0) 04/12/24 14:27
Physical Exam
General: AOx3, No Distress and Nontoxic
HEENT: PERRL, EOMI, Anicteric, Conjunctivae Clear, Ear/Nose Intact, Hearing Normal, Oropharynx Clear/Moist, Dentition Intact, Facial Symmetry, Neck Supple, Trachea Midline and No Thyromegaly
Respiratory: Clear
Cardiac: S1/S2, Regular Rate/Rhythm, Murmur (systolic murmur) and No Edema
Breast: Deferred by me
Abdomen: Soft, Nontender, Nondistended, Normal Bowel Sounds and No Hepatosplenomegaly
Rectal: Deferred by Provider
Genito-urinary: No Costovertebral Tender and Clear Urine
Musculoskeletal: No Clubbing, No Cyanosis and No Edema
Skin: No Rash, Warm, Dry, No Clubbing, No Cyanosis, Normal Turgor and No Bruising
Neuro: Nonfocal/Grossly Intact
Hematologic/Lymphatic: No Cervical Lymphadenopathy
Psych: Mood/afflect pleasant, Insight/judgement good and Appropriate
Data Reviewed
-
CT Scan: Report Reviewed by me (large hemorrhagic uterine fibroid measuring 22cm)
MRI: Report Reviewed by me (Large necrotic and hemorrhagic uterine fundus fibroid with apparent blood products spilling into and expanding the endometrium and cervical/vaginal canals.)
Labs: Labs Reviewed by me, Discussed with Physician, Discussed with Patient and Discussed with Family
Old Records: Reviewed
Assessment/Plan
-
Assessment:
Bleeding uterine fibroid
acute blood loss anemia
CKD V (bl Cr 2.7-2.9)
HyperK
chronic acisosis
T2DM
morbid obesity
Plan:
- acidosis noted, on IV and oral bicarb at this time. would continue for now
- Cr back to baseline, continue to trend
- hyperK resolved
- overall, patient showing remarkable stability of kidney function
Of note, patient has discussed at great length that she would never want dialysis.
--- NOTE | 2024-04-15 15:52 | IR.POSTOP ---
[facility] Post Procedure Note
-
Interventional Radiology Physician: Other
Procedure Performed: Successful uterine artery embolization
--- NOTE | 2024-04-15 16:18 | CM ---
Patient seen at bedside with caregiver. Patient requested CM speak with caregiver. Patient caregiver states that she cares for both patient and son in a 2 story home. Patient remains on the first floor and PCP is Dr. Sanford /Dr. Coates. Patient
uses the [facility] for pharmacy needs. Patient aide is there 9 hours a day and patient brother Guero is there in the [place] and for all needs. Patient has a purewick, CPAP and home O2, wheelchair and shower chair. Patient plan is to return home with
prior supports. CM will reach out to patient brother Guero. CM will continue to follow for discharge planning needs.
Plan; home with caregiver and watch for VN needs/ change in home O2 from previous
--- NOTE | 2024-04-15 16:30 | PTCARENOTE ---
Pt returned from Uterine Artery Embolization, Report from Martina DUKES. Pt awake, alert and oriented x3. Pt is flat per orders, Right groin site with old blood noted to dressing, no active bleeding or hematoma. N/V checks unchanged. + Doppler pulse. Pt
bp elevated, primary team aware, Procardia dose increased, administered per orders. Other VSS, NSR on tele. Pt has no c/o pain at this time. Vaginally bleeding noted, small amount at this time. Pt did have a bowel movement post procedure, chinchilla
draining yellow urine. pt reoriented to room, pt instructed on keeping leg straight and HOB flat, verbalized understanding.
[2024-04-15 17:35] LABS: Hematocrit 27.2 % (37.0-47.0); Hemoglobin 9.9 g/dL (12.0-16.0)
[2024-04-15 19:47] LABS: Hepatitis C Antibody Negative (Negative)
[2024-04-15] MEDS: SODIUM BICARBONATE 650 MG PO (20:07)
[2024-04-15] MEDS: APRESOLINE 5 MG IV (21:58)
[2024-04-16] VITALS (9 sets, daily range): BP systolic 127–180; BP diastolic 51–97; PULSE 88
[2024-04-16] MEDS: APRESOLINE 5 MG IV ×2 (04:48→13:22)
--- NOTE | 2024-04-16 07:33 | W.PN.GENERIC ---
Assessment / Plan
-
A/P:
78 yo female admitted with vaginal bleeding and acute on chronic anemia
She received transfusions- Continue to monitor H&H
She underwent UAE in IR- Pain meds as needed
May resume normal diet
I spent approximately 40 minutes in counseling and coordination of care with the patient, reviewing medical records, laboratory studies and images as well as review the results of the procedure with the patient, the expected recovery and
convalescence period.
Physician Progress Note
Subjective
This is a 78y female with past medical history significant for morbid obesity, CKD V, T2DM who was admitted for anemia and vaginal bleeding. She reporrts that she has had intermittent vaginal bleeding in fairly small amounts for the past week or
so but it has been much more significant with very large clots over the last couple of days. She was found to have acute blood loss anemia and was given a transfusion. She was given TXA as well. She underwent UAE yesterday in IR and reports only 1
episode of vaginal bleeding since. She denies abdominal pain, cramping, nausea or vomiting. She denies SOB, palpitations, dizziness, lightheadedness, near syncope. She reports feeling much better today.
Past Medical History
Morbid Obesity
Diet-Controlled DM-II
Dysfunctional Uterine Bleeding
Chronically Bedridden
Viral Encephalitis / Myositis (2012)
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
Past Surgical History:
T&A (x 2)
(x 2))
Social History
Tobacco: Non-Smoker
Alcohol: None
Living: Alone with home care 7 days/week
Allergies / Home Medications
Allergy/AdvReac Type Severity Reaction Status Date / Time
No Known Allergies Allergy Unverified 04/12/24 17:43
�Medication �Instructions �Recorded �Confirmed �Type
atorvastatin 40 mg tablet 40 mg PO DAILY High Cholesterol 04/12/24 04/12/24 History
cholecalciferol (vitamin D3) 25 25 mcg PO DAILY Supplement 04/12/24 04/12/24 History
mcg (1,000 unit) tablet
ferrous sulfate 324 mg (65 mg 324 mg PO DAILY Supplement 04/12/24 04/12/24 History
iron) tablet,delayed release
fluticasone prop.50 mcg 2 spray intranasal DAILY PRN 04/12/24 04/12/24 History
spray,suspen-sod.chloride 0.9% rhinitis
nasal spray kit
folic acid 1 mg tablet 1 mg PO DAILY Supplement 04/12/24 04/12/24 History
fepuqwnv-dde-yica 4 mg-folic acid 1 tab PO DAILY Supplement 04/12/24 04/12/24 History
200 mcg-vit K 25 mcg-lutein tablet
(Centrum Minis Women 50 Plus)
sertraline 50 mg tablet 50 mg PO DAILY Mental 04/12/24 04/12/24 History
Health/Anxiety
sodium bicarbonate 650 mg tablet 650 mg PO BID ALKILINIZER 04/12/24 04/12/24 History
Objective
Vital Signs
Temp Pulse Resp BP Pulse Ox
98.5 F 61 20 165/63 98
04/16/24 03:29 04/16/24 04:48 04/16/24 03:29 04/16/24 04:48 04/16/24 03:29
HGB: 8.4->7.7->9.9->9.2
This is a pleasantly obese 78 yo female in NAD lying in bed. Color is good. Skin is warm and dry. Neck is supple. Heart is regular. Lungs are CTA. Abdomen is soft, round and nontender. Normoative BS. Groin dressing is CDI. No hematoma.
Palpable inguinal and pedal pulses.
[2024-04-16 07:46] LABS: Hematocrit 26.4 % (37.0-47.0); Hemoglobin 9.2 g/dL (12.0-16.0); Mean Corp Hgb Conc. 34.8 g/dL (33.0-37.0); Mean Corpuscular Hgb 31.2 pg (27.0-31.0); Mean Corpuscular Volume 89.5 fL (81.0-99.0); Red Blood Cell Count 2.95 10^6/uL (4.20-5.40); Red Cell Dist. Width 15.3 % (11.5-14.5); White Blood Cell Count 7.9 10^3/uL (4.8-10.8)
[2024-04-16 07:51] LABS: Blood Urea Nitrogen 36 mg/dl (7-17); Carbon Dioxide 20 mmol/L (22-30); Chloride 108 mmol/L (98-107); Estimated Creatinine Clearance 21 ml/min; Glucose 102 mg/dl (70-99); Potassium 4.6 mmol/L (3.5-5.1); Sodium 139 mmol/L (135-145); eGFR 16.87
[2024-04-16] MEDS: NSS 1000 IV ×2 (09:12→18:34)
[2024-04-16] MEDS: SODIUM BICARBONATE 650 MG PO ×2 (09:13→21:40)
[2024-04-16] MEDS: PROCARDIA XL (EXTENDED RELEASE) 60 MG PO (09:13)
[2024-04-16] MEDS: LIPITOR 40 MG PO (09:13)
[2024-04-16] MEDS: ZOLOFT 50 MG PO (09:14)
--- NOTE | 2024-04-16 10:59 | W.PN.HOSP.TC ---
Addendum entered and electronically signed by Shiva Porter MD 04/16/24 11:16:
Patient spiked fever. Will check UA and blood cultures and COVID.
Patient continues to spike persistent fever will need ID input and repeat abdominal pelvic admission.
Original Note:
Today's Communication/Plan
-
Monitor BP
Registered Public Health Nurse recs
Trend h/h
Nephro recs
Assessment / Plan
Assessment / Plan
A/P: Patient is a 78y F with PMH significant for morbid obesity, DM-II and CKD V (baseline creatinine 2.4-2.9) who presents to ED for evaluation of vaginal bleeding.
DUB / Uterine Fibroid
Acute Blood Loss Anemia on Anemia of Chronic Disease
- s/p 4 units PRBC so far. Repeat H/H at 9.2
- IV TXA administered in the ED; oral dosing ordered yesterday after discussion with DISTRICT MANAGER. Given renal function will decrease dosing
- DISTRICT MANAGER evaluation appreciated
- s/p UAE with IR. So far no further bleeding
- MRI pelvis Large necrotic and hemorrhagic uterine fundus fibroid with apparent blood products spilling into and expanding the endometrium and cervical/vaginal canals.
CKD V
Hyperkalemia secondary to the above
Chronic Non-Gapped Metabolic Acidosis secondary to the above
- creatinine stable
- Patient has been clear that she is not interested in HD should that be necessary.
- Avoid nephrotoxic medications.
- s/p bicarb infusion
- s/p Lokelma with normalization of K - stop further dosing
- Trend cr post contrast exposure. Cr at 2.8
- nephro consulted
Diet-Controlled DM-II
- Patient states that she 'used to have' DM-II.
- Not currently on any DM medications. A1C 5.2.
Anxiety / Depression
- Stable. Continue sertraline.
Hypertensive Urgency
-this happened post exertion getting into MRI, again this AM
-Increase procardia to 60mg daily. Can further increase dose if needed
Morbid Obesity
Chronically Bedbound
- Affects all aspects of care.
- Encourage healthy diet.
- Significant increase in activity not likely in this chronically bedbound individual.
Thrombocytopenia
-Unclear etiology for drop. platelet clumping this am. Repeat labs.
DVT Prophylaxis: SCDs in setting of bleeding
Code Status: DNR
Anticipated Discharge: > 48 hours
Subjective/Interval History
-
Date of Service: April 16, 2024
denies groin pain
Objective Data
-
Labs:
Laboratory Results
04/16/24
06:54
WBC 7.9
Hgb 9.2 L
Hct 26.4 L
Plt Count
Sodium 139
Potassium 4.6
Chloride 108 H
Carbon Dioxide 20 L
BUN 36 H
Creatinine 2.8 H
Glucose 102 H
Calcium 8.0 L
Vital Signs:
Vital Signs
Temp Pulse Resp BP Pulse Ox
100.3 F 79 18 153/58 96
04/16/24 10:22 04/16/24 07:35 04/16/24 07:35 04/16/24 07:35 04/16/24 07:35
I&O
04/15/24 04/16/24 04/17/24
06:59 06:59 06:59
Intake Total 2440 / 2440 950 / 950
Output Total 975 / 975
Balance 2440 / 2440 -25 / -25
--- NOTE | 2024-04-16 11:12 | W.PN.NEPH.PH ---
Today's Communication / Plan
-
- sign off
- continue oral bicarb
Assessment/Plan
-
Assessment:
Bleeding uterine fibroid
acute blood loss anemia
CKD V (bl Cr 2.7-2.9)
HyperK
chronic acisosis
T2DM
morbid obesity
Plan:
- acidosis improved with sodium bicarb, continue oral sodium bicarb.
- Cr back to baseline
- hyperK resolved
- overall, patient showing remarkable stability of kidney function
Of note, patient has discussed at great length that she would never want dialysis.
Nephrology will sign off at this time. Patient instructed to follow with her laborer chemical processing (Dr. Kaiser) as an outpatient in 6 weeks.
-
-
Date of Service: April 16, 2024
CC / HPI / ROS
-
Chief Complaint:
CKD V
History of Present Illness:
Cr is at baseline
Hgb stable
Review of Systems:
feeling well
very thankful for care
Labs
-
Labs:
Sodium 139 mmol/L (135-145) 04/16/24 06:54
Potassium 4.6 mmol/L (3.5-5.1) 04/16/24 06:54
Chloride 108 mmol/L (98-107) H 04/16/24 06:54
Carbon Dioxide 20 mmol/L (22-30) L 04/16/24 06:54
BUN 36 mg/dl (7-17) H 04/16/24 06:54
Creatinine 2.8 mg/dL (0.6-1.0) H 04/16/24 06:54
eGFR 16.87 04/16/24 06:54
Glucose 102 mg/dl (70-99) H 04/16/24 06:54
Calcium 8.0 mg/dl (8.4-10.2) L 04/16/24 06:54
Albumin 3.8 g/dl (3.5-5.0) 04/12/24 14:27
Physical Exam
-
Vital Signs:
Vital Signs
Temp Pulse Resp BP Pulse Ox
100.3 F 79 18 153/58 96
04/16/24 10:22 04/16/24 07:35 04/16/24 07:35 04/16/24 07:35 04/16/24 07:35
Cardiovascular:: Regular rate and rhythm
Respiratory:: Bilateral: Coarse
Lung Excursion:: Normal
Abdomen:: Nontender and Soft
Bowel Sounds:: Normal
Extremity Edema:: None: Bilateral:
Hall Catheter: No
[2024-04-16] MEDS: TYLENOL 650 MG PO ×2 (11:13→17:45)
[2024-04-16 11:43] LABS: COVID-19 Antigen Negative (Negative)
--- NOTE | 2024-04-16 12:15 | W.PN.GYN.DG ---
Today's Communication / Plan
-
Watch temp curve today- Covid neg. BW/ Cx/ imaging as needed
Watch vaginal bleeding and Hgb.
Should be off TXA at this point
Assessment / Plan
-
Assessment:
Adm 04/12/2024 with vaginal bleeding/ Anemia
s/p 4 Units of pRBCs
s/p UAE by IR yesterday-- Min Vaginal bleeding since UAE
Hbg stable since last transfusion yesterday
Temp spike today- Neg covid/Having Cxs done/ BW done.
Plan:
Watch temp curve today- Covid neg. BW/ Cx/ imaging as needed
Watch vaginal bleeding and Hgb.
Should be off TXA at this point
Subjective / Objective Data
Subjective Data
Pt did well with UAE yesterday. Corrine well. Min vaginal bleeding since UAE
Objective Data
Vital Signs
Temp Pulse Resp BP Pulse Ox
102.5 F H 84 17 154/59 97
04/16/24 11:38 04/16/24 11:38 04/16/24 11:38 04/16/24 11:38 04/16/24 11:38
Intake & Output
04/15/24 04/16/24 04/17/24
06:59 06:59 06:59
Intake Total 2440 / 2440 950 / 950
Output Total 975 / 975
Balance 2440 / 2440 -25 / -25
Intake:
Oral fluids 1440 / 1440 480 / 480
IV fluids (Total) 500 / 500 100 / 100
nss 100 / 100
IV piggybacks 120 / 120
Blood products 250 / 250
Blood Product Amount Infused ( 250 / 250 250 / 250
mL)
Packed Rbc Leukoreduced Unit 0 / 0 250 / 250
[id number]
Packed Rbc Leukoreduced Irr 250 / 250
Unit [id number]
Output:
Urine, Hall 975 / 975
Other:
How many times incontinent 3 3
SATURATED amount urine
Physical Exam
-
Abdomen: Soft, Nontender and Other
Other Findings:
Obese/ +NT large umbilical hernia
Data Reviewed
-
Lab Data
04/16/24 06:54
--- NOTE | 2024-04-16 13:19 | CM ---
Patient seen at bedside. Patient with no complaints, telling CM that she appreciated everyone who was helping her. CM will reach out to patient brother to confirm discharge planning needs.
Plan; home with caregiver and family support; watch for VN needs
[2024-04-16 14:14] LABS: % Basophils 0.2 % (0-2); % Eosinophils 0.5 % (0-6); % Immature Granulocytes 0.6 % (0-0.5); % Lymphocytes 5.6 % (20.5-51.1); % Monocytes 8.9 % (1.7-9.3); % Neutrophils 84.2 % (42.2-75.2); Absolute Immature Granulocytes 0.1 10^3/uL (0-0.05); Absolute Lymphocytes 0.5 10^3/uL (1.2-3.4); Absolute Monocytes 0.8 10^3/uL (0.1-0.6); Absolute Neutrophils 7.1 10^3/uL (1.4-6.5); Hematocrit 25.1 % (37.0-47.0); Hemoglobin 8.8 g/dL (12.0-16.0); Mean Corp Hgb Conc. 35.1 g/dL (33.0-37.0); Mean Corpuscular Hgb 31.1 pg (27.0-31.0); Mean Corpuscular Volume 88.7 fL (81.0-99.0); Nucleated Red Blood Cells % 0 %; Red Blood Cell Count 2.83 10^6/uL (4.20-5.40); Red Cell Dist. Width 15.3 % (11.5-14.5); White Blood Cell Count 8.4 10^3/uL (4.8-10.8)
[2024-04-16 14:25] LABS: Urine Albumin 1+ (Neg - Trace); Urine Bilirubin Negative (Negative); Urine Character Clear (Clear); Urine Color Yellow; Urine Glucose Negative (Negative); Urine Ketone Negative (Negative); Urine Leukocyte 2+ (Negative); Urine Nitrite Negative (Negative); Urine Occult Blood 1+ (Negative); Urine Specific Gravity 1.005 (<1.030); Urine Urobilinogen Negative (Neg - 1+)
[2024-04-16 14:35] LABS: Urine Squamous Cell 0-2 /LPF (Few)
[2024-04-16 14:36] LABS: Urine Bacteria Few (Negative); Urine Red Blood Cell 0-2 /HPF (0-2)
[2024-04-16] MEDS: PROCARDIA XL (EXTENDED RELEASE) 30 MG PO (16:25)
[2024-04-16] MEDS: APRESOLINE 10 MG IV (21:41)
[2024-04-17] VITALS (7 sets, daily range): BP systolic 132–175; BP diastolic 52–94; PULSE 85
--- NOTE | 2024-04-17 02:58 | DOWNTIME ---
There was a [employer] Downtime on 04/17/2024 from 0100 to 04/17/2024 at 0255. Downtime documentation of patient's care, including medication administrations, has been reconciled in the electronic record per guidelines. Refer to the
patient's paper chart under the miscellaneous tab to see printed paper medication records and downtime forms.
[2024-04-17] MEDS: NSS 1000 IV ×3 (04:08→23:36)
--- NOTE | 2024-04-17 07:40 | W.PN.GYN.DG ---
Today's Communication / Plan
-
Watch temp curve today. CBC this am pending. No elevated wt ct yesterday
Watch vaginal bleeding and Hgb. UAE appears to have been successful. No heavy vaginal bleeding since embolization
Await Ucx/Bcx
Might need CXR/ pelvic imaging if fevers continue. While you can sometimes get elevated temps s/p UAE because of necrosis- temp spikes are more mild and not as high as pt is having
Assessment / Plan
-
Assessment:
Adm 04/12/2024 with vaginal bleeding/ Anemia
s/p 4 Units of pRBCs
s/p UAE by IR 04/15-- Min Vaginal bleeding since UAE
Hbg stable
Temp spikes in the last 24 hrs- Pt continues to look well
Neg covid/UCx and BCx still pending.
Can get temp spikes s/p UAE b/c of fibroid necrosis but usually they are low grade temps not Tmax 103
Plan:
Watch temp curve today. CBC this am pending. No elevated wt ct yesterday
Watch vaginal bleeding and Hgb. UAE appears to have been successful. No heavy vaginal bleeding since embolization
Await Ucx/Bcx
Might need CXR/ pelvic imaging if fevers continue. While you can sometimes get elevated temps s/p UAE because of necrosis- temp spikes are more mild and not as high as pt is having
Subjective / Objective Data
Subjective Data
Pt feels well. No symptoms despite having some fevers in the last 24 hrs. No abd/pelvic pain. No UTI s/sx. No diarrrhea.
No CP/SOB/leg pain
Min vaginal bleeding in the last 24 hrs. No clots
Objective Data
Vital Signs
Temp Pulse Resp BP Pulse Ox
99.3 F 84 24 157/54 98
04/17/24 03:38 04/17/24 03:38 04/17/24 03:38 04/17/24 03:38 04/17/24 03:38
Intake & Output
04/16/24 04/17/24 04/18/24
06:59 06:59 06:59
Intake Total 950 / 950 1680 / 1680
Output Total 975 / 975
Balance -25 / -25 1680 / 1680
Intake:
Oral fluids 480 / 480 480 / 480
IV fluids (Total) 100 / 100 1200 / 1200
nss 100 / 100
IV piggybacks 120 / 120
Blood Product Amount Infused ( 250 / 250
mL)
Packed Rbc Leukoreduced Unit 250 / 250
[id number]
Output:
Urine, Hall 975 / 975
Other:
How many times incontinent 3
MODERATE amount urine
How many times incontinent 3 2
SATURATED amount urine
Physical Exam
-
Abdomen: Soft, Nontender and Other
Other Findings:
+Obese
Data Reviewed
-
Urine Color Yellow 04/16/24 14:15
Urine Clarity Clear (Clear) 04/16/24 14:15
Urine pH 7.0 (5.0-9.0) 04/16/24 14:15
Ur Specific [place] 1.005 (<1.030) 04/16/24 14:15
Urine Ketones Negative (Negative) 04/16/24 14:15
Urine Bilirubin Negative (Negative) 04/16/24 14:15
Urine Urobilinogen Negative (Neg - 1+) 04/16/24 14:15
[2024-04-17 08:06] LABS: Blood Urea Nitrogen 33 mg/dl (7-17); Calcium 7.3 mg/dl (8.4-10.2); Carbon Dioxide 21 mmol/L (22-30); Chloride 108 mmol/L (98-107); Estimated Creatinine Clearance 19 ml/min; Glucose 124 mg/dl (70-99); Potassium 4.1 mmol/L (3.5-5.1); Sodium 138 mmol/L (135-145); eGFR 14.93
[2024-04-17] MEDS: PROCARDIA XL (EXTENDED RELEASE) 90 MG PO (08:51)
[2024-04-17] MEDS: LIPITOR 40 MG PO (08:51)
[2024-04-17] MEDS: ZOLOFT 50 MG PO (08:51)
[2024-04-17] MEDS: SODIUM BICARBONATE 650 MG PO ×2 (08:52→20:45)
[2024-04-17] MEDS: TYLENOL 650 MG PO (08:52)
[2024-04-17] MEDS: APRESOLINE 10 MG IV ×2 (08:56→23:35)
[2024-04-17] MEDS: MYLICON 80 MG PO (10:20)
[2024-04-17 10:47] LABS: Hematocrit 25.6 % (37.0-47.0); Hemoglobin 8.7 g/dL (12.0-16.0); Mean Corpuscular Hgb 31.6 pg (27.0-31.0); Mean Corpuscular Volume 93.1 fL (81.0-99.0); Mean Platelet Volume 11.7 fL (7.4-10.4); Platelet Count 83 10^3/uL (130-400); Red Blood Cell Count 2.75 10^6/uL (4.20-5.40); Red Cell Dist. Width 15.4 % (11.5-14.5); White Blood Cell Count 10.4 10^3/uL (4.8-10.8)
--- NOTE | 2024-04-17 13:07 | W.PN.HOSP.TC ---
Today's Communication/Plan
-
monitor BMP
Assessment / Plan
Assessment / Plan
A/P: Patient is a 78y F with PMH significant for morbid obesity, DM-II and CKD V (baseline creatinine 2.4-2.9) who presents to ED for evaluation of vaginal bleeding.
DUB / Uterine Fibroid
Acute Blood Loss Anemia on Anemia of Chronic Disease
- s/p 4 units PRBC so far. Repeat H/H at 9.2
- IV TXA administered in the ED; oral dosing ordered yesterday after discussion with POINTING MACHINE OPERATOR. Given renal function will decrease dosing
- POINTING MACHINE OPERATOR evaluation appreciated
- s/p UAE with IR. So far no further bleeding
- MRI pelvis Large necrotic and hemorrhagic uterine fundus fibroid with apparent blood products spilling into and expanding the endometrium and cervical/vaginal canals.
Acute renal failure on CKD V
Hyperkalemia secondary to the above
Chronic Non-Gapped Metabolic Acidosis secondary to the above
- creatinine stable
- Patient has been clear that she is not interested in HD should that be necessary.
- Avoid nephrotoxic medications.
- s/p bicarb infusion
- s/p Lokelma with normalization of K - stop further dosing
- Trend cr post contrast exposure. Cr at 2.8
- nephro consulted-nephrology signed
-Continue IVF
Diet-Controlled DM-II
- Patient states that she 'used to have' DM-II.
- Not currently on any DM medications. A1C 5.2.
Anxiety / Depression
- Stable. Continue sertraline.
Hypertensive Urgency
-this happened post exertion getting into MRI, again this AM
-Increase procardia to 60mg daily. Can further increase dose if needed
Morbid Obesity
Chronically Bedbound
- Affects all aspects of care.
- Encourage healthy diet.
- Significant increase in activity not likely in this chronically bedbound individual.
Thrombocytopenia
-Unclear etiology for drop. platelet clumping this am. Repeat labs.
DVT Prophylaxis: SCDs in setting of bleeding
Code Status: DNR
Anticipated Discharge: Today
Subjective/Interval History
-
Date of Service: April 17, 2024
Patient seen and examined at bedside, denies any chest pain or shortness of breath, patient was having right lower quadrant pain, possible gas pain, hemoglobin stable at 8.7, no nausea, no vomiting, no diarrhea or constipation.
Had fever yesterday, up to 103, today morning temperature was 100 then 99.5
Right lower abdominal pain improved
Worsening creatinine to 3.1 today.
Objective Data
-
Labs:
Laboratory Results
04/17/24
07:08
WBC 10.4
Hgb 8.7 L
Hct 25.6 L
Plt Count 83 L D
Sodium 138
Potassium 4.1
Chloride 108 H
Carbon Dioxide 21 L
BUN 33 H
Creatinine 3.1 H
Glucose 124 H
Calcium 7.3 L
Vital Signs:
Vital Signs
Temp Pulse Resp BP Pulse Ox
99.5 F 97 22 132/52 97
04/17/24 11:29 04/17/24 11:29 04/17/24 11:29 04/17/24 11:29 04/17/24 11:29
I&O
04/16/24 04/17/24 04/18/24
06:59 06:59 06:59
Intake Total 950 / 950 1680 / 1680
Output Total 975 / 975
Balance -25 / -25 1680 / 1680
Physical Exam
-
General: No Apparent Distress, Comfortable and Morbidly Obese
HEENT: Normocephalic, Atraumatic and Moist Mucous Membranes
Respiratory: Clear to Auscultation; Negative Wheezes
Cardiac: Regular Rhythm and S1/S2
GI: Soft, Nontender, Nondistended and Normal Bowel Sounds
Musculoskeletal: No Edema
Skin: Warm and Dry; Negative Rash
Neuro: Awake, Alert, Oriented, AO x 3 and No Motor Deficits
Psych: Calm
--- NOTE | 2024-04-17 15:49 | CM ---
Patient seen bedside, reports she feels like she may be getting a cold, otherwise has no concerns. Patient denies any needs from CM at this time. CM will continue to follow for all discharge planning needs.
Plan; home with caregiver and family supports.
[2024-04-18 04:40] VITALS: BP 145/69
--- NOTE | 2024-04-18 08:00 | W.PN.GYN.DG ---
Today's Communication / Plan
-
UAE appears to have been successful. No heavy vaginal bleeding since embolization. Pt will continue with some vaginal bleeding off/ on for the next 3-6 months because of the necrosis of the fibroid and the fibroid's connection to the endometrial
cavity
Spontaneous resolution of temp spikes with Neg Cx (blood and urine). Fevers were probably secondary to post UAE syndrome
Hgb stable- no further units needed since UAE
Pt is stable from a offc spec perspective and is ready for d/c home from a offc spec perspective. She is NOT a surgical candidate and can't be sent home on TXA b/c of her renal insufficiency
D/c home at this point is per the hospitalist and dependant on any comorbid factors
Assessment / Plan
-
Assessment:
Adm 04/12/2024 with vaginal bleeding/ Anemia
s/p 4 Units of pRBCs
s/p UAE by IR 04/15-- Min Vaginal bleeding since UAE
Hbg stable
Temp spikes have resolved spont in the last 24 hrs- likely post UAE fevers due to necrosis
Neg UCX/Neg Bcx and normal white count
Plan:
UAE appears to have been successful. No heavy vaginal bleeding since embolization. Pt will continue with some vaginal bleeding off/ on for the next 3-6 months because of the necrosis of the fibroid and the fibroid's connection to the endometrial
cavity
Resolution of temp spikes with Neg Cx (blood and urine)
Hgb stable- no further units needed since UAE
Pt is stable from a offc spec perspective and is ready for d/c home from a offc spec perspective.
D/c home at this point is per the hospitalist and dependant on any comorbid factors
Subjective / Objective Data
Subjective Data
Pt is feeling really good today- 'best she has felt in a long time'. Small amount of vaginal bleeding- nothing heavy and nothing continuous. No n/v/d. No CP/SOB/ leg pain
Objective Data
Vital Signs
Temp Pulse Resp BP Pulse Ox
99.7 F 85 17 145/69 100
04/18/24 04:40 04/18/24 04:40 04/18/24 04:40 04/18/24 04:40 04/18/24 04:40
Intake & Output
04/17/24 04/18/24 04/19/24
06:59 06:59 06:59
Intake Total 1680 / 1680 1200 / 1200
Balance 1680 / 1680 1200 / 1200
Intake:
Oral fluids 480 / 480 1200 / 1200
IV fluids (Total) 1200 / 1200
Other:
Number of approximated MODERATE 1
amounts of urine
Number of approximated LARGE 1
amounts of urine
How many times incontinent 3
MODERATE amount urine
How many times incontinent 2 4
SATURATED amount urine
Physical Exam
-
Abdomen: Soft and Nontender
Bowel Sounds: Normal
Other Findings:
+large umbilical hernia/NT/No erythema
Small amount of blood in pt's peripad
Data Reviewed
-
Lab Data
04/17/24 07:08
Urine Color Yellow 04/16/24 14:15
Urine Clarity Clear (Clear) 04/16/24 14:15
Urine pH 7.0 (5.0-9.0) 04/16/24 14:15
Ur Specific [place] 1.005 (<1.030) 04/16/24 14:15
Urine Ketones Negative (Negative) 04/16/24 14:15
Urine Bilirubin Negative (Negative) 04/16/24 14:15
Urine Urobilinogen Negative (Neg - 1+) 04/16/24 14:15
[2024-04-18 08:19] VITALS: BP 148/55
[2024-04-18] MEDS: SODIUM BICARBONATE 650 MG PO ×2 (09:25→20:33)
[2024-04-18] MEDS: NSS 1000 IV (09:25)
[2024-04-18] MEDS: ZOLOFT 50 MG PO (09:25)
[2024-04-18] MEDS: LIPITOR 40 MG PO (09:25)
[2024-04-18] MEDS: PROCARDIA XL (EXTENDED RELEASE) 90 MG PO (09:25)
[2024-04-18 09:33] LABS: Hematocrit 26.4 % (37.0-47.0); Hemoglobin 9.1 g/dL (12.0-16.0); Mean Corp Hgb Conc. 34.5 g/dL (33.0-37.0); Mean Corpuscular Volume 89.8 fL (81.0-99.0); Red Blood Cell Count 2.94 10^6/uL (4.20-5.40); Red Cell Dist. Width 14.8 % (11.5-14.5); White Blood Cell Count 12.3 10^3/uL (4.8-10.8)
[2024-04-18 11:34] VITALS: BP 181/77
--- NOTE | 2024-04-18 11:52 | CM ---
Patient seen bedside, reports no needs to CM at this time. Patient reports upon her discharge she will need transportation home. IMM reviewed, signed, placed in chart. CM will continue to follow for all discharge planning needs.
Plan; home with caregivers and family.
[2024-04-18 13:01] LABS: Blood Urea Nitrogen 35 mg/dl (7-17); Calcium 7.7 mg/dl (8.4-10.2); Carbon Dioxide 18 mmol/L (22-30); Chloride 109 mmol/L (98-107); Estimated Creatinine Clearance 21 ml/min; Glucose 116 mg/dl (70-99); Potassium 3.7 mmol/L (3.5-5.1); Sodium 137 mmol/L (135-145); eGFR 16.17
--- NOTE | 2024-04-18 14:02 | W.PN.HOSP.TC ---
Today's Communication/Plan
-
Possible discharge tomorrow
Assessment / Plan
Assessment / Plan
A/P: Patient is a 78y F with PMH significant for morbid obesity, DM-II and CKD V (baseline creatinine 2.4-2.9) who presents to ED for evaluation of vaginal bleeding.
DUB / Uterine Fibroid
Acute Blood Loss Anemia on Anemia of Chronic Disease
- s/p 4 units PRBC so far. Repeat H/H at 9.2
- IV TXA administered in the ED; oral dosing ordered yesterday after discussion with REPORTING DEVELOPER. Given renal function will decrease dosing
- REPORTING DEVELOPER evaluation appreciated
- s/p UAE with IR. So far no further bleeding
- MRI pelvis Large necrotic and hemorrhagic uterine fundus fibroid with apparent blood products spilling into and expanding the endometrium and cervical/vaginal canals.
04/18
Hemoglobin stable
Acute renal failure on CKD V
Hyperkalemia secondary to the above
Chronic Non-Gapped Metabolic Acidosis secondary to the above
- creatinine stable
- Patient has been clear that she is not interested in HD should that be necessary.
- Avoid nephrotoxic medications.
- s/p bicarb infusion
- s/p Lokelma with normalization of K - stop further dosing
- Trend cr post contrast exposure. Cr at 2.8
- nephro consulted-nephrology signed
-Continue IVF
04/18
Creatinine stable, back to baseline.
Discontinue IV fluid
SIRS
Patient meets sepsis criteria with leukocytosis and fever.
No obvious source of infection.
Urine culture came back negative.
Patient denies coughing up blood she had cold symptoms 2 days ago which improved.
Will check chest x-ray.
Hold start antibiotic for
Diet-Controlled DM-II
- Patient states that she 'used to have' DM-II.
- Not currently on any DM medications. A1C 5.2.
Anxiety / Depression
- Stable. Continue sertraline.
Hypertensive Urgency
-this happened post exertion getting into MRI, again this AM
-Increase procardia to 60mg daily. Can further increase dose if needed
Morbid Obesity
Chronically Bedbound
- Affects all aspects of care.
- Encourage healthy diet.
- Significant increase in activity not likely in this chronically bedbound individual.
Thrombocytopenia
-Unclear etiology for drop. platelet clumping this am. Repeat labs.
DVT Prophylaxis: SCDs in setting of bleeding
Code Status: DNR
Anticipated Discharge: Within 24 hours
Subjective/Interval History
-
Date of Service: April 18, 2024
Patient seen and examined at bedside, denies any chest pain or shortness of breath, no abdominal pain, no nausea, no vomiting, no diarrhea or constipation.
No sign of bleeding, hemoglobin stable, creatinine stable.
WBCs elevated, patient was having cold symptoms and coughing but improved.
Will check chest x-ray.
Discontinue IVF
Objective Data
-
Labs:
Laboratory Results
04/18/24 04/18/24
08:53 08:55
WBC 12.3 H
Hgb 9.1 L
Hct 26.4 L
Plt Count
Sodium 137
Potassium 3.7
Chloride 109 H
Carbon Dioxide 18 L
BUN 35 H
Creatinine 2.9 H
Glucose 116 H
Calcium 7.7 L
Vital Signs:
Vital Signs
Temp Pulse Resp BP Pulse Ox
99.6 F 89 20 181/77 96
04/18/24 11:34 04/18/24 11:34 04/18/24 11:34 04/18/24 11:34 04/18/24 11:34
I&O
04/17/24 04/18/24 04/19/24
06:59 06:59 06:59
Intake Total 1680 / 1680 1200 / 1200
Balance 1679
Physical Exam
-
General: No Apparent Distress, Comfortable and Morbidly Obese
HEENT: Normocephalic, Atraumatic and Moist Mucous Membranes
Respiratory: Clear to Auscultation; Negative Wheezes
Cardiac: Regular Rhythm and S1/S2
GI: Soft, Nontender, Nondistended and Normal Bowel Sounds
Musculoskeletal: No Edema
Skin: Warm and Dry; Negative Rash
Neuro: Awake, Alert, Oriented, AO x 3 and No Motor Deficits
Psych: Calm
[2024-04-18] MEDS: APRESOLINE 10 MG IV ×2 (16:07→23:56)
[2024-04-18 16:31] VITALS: BP 151/66
[2024-04-18 19:52] VITALS: BP 159/60
[2024-04-18 23:34] VITALS: BP 162/63
[2024-04-19 03:30] VITALS: BP 165/57
[2024-04-19 07:00] VITALS: BP 166/59
[2024-04-19 08:15] LABS: % Basophils 0.3 % (0-2); % Eosinophils 0.7 % (0-6); % Immature Granulocytes 1.7 % (0-0.5); % Lymphocytes 3.7 % (20.5-51.1); % Neutrophils 87.6 % (42.2-75.2); Absolute Eosinophils 0.1 10^3/uL (0-0.7); Absolute Immature Granulocytes 0.2 10^3/uL (0-0.05); Absolute Lymphocytes 0.5 10^3/uL (1.2-3.4); Absolute Monocytes 0.8 10^3/uL (0.1-0.6); Absolute Neutrophils 11.6 10^3/uL (1.4-6.5); Hematocrit 25.3 % (37.0-47.0); Hemoglobin 8.7 g/dL (12.0-16.0); Mean Corp Hgb Conc. 34.4 g/dL (33.0-37.0); Mean Corpuscular Hgb 31.5 pg (27.0-31.0); Mean Corpuscular Volume 91.7 fL (81.0-99.0); Nucleated Red Blood Cells % 0 %; Red Blood Cell Count 2.76 10^6/uL (4.20-5.40); Red Cell Dist. Width 14.6 % (11.5-14.5); White Blood Cell Count 13.3 10^3/uL (4.8-10.8)
[2024-04-19 08:20] LABS: Blood Urea Nitrogen 39 mg/dl (7-17); Calcium 7.6 mg/dl (8.4-10.2); Carbon Dioxide 17 mmol/L (22-30); Chloride 108 mmol/L (98-107); Estimated Creatinine Clearance 21 ml/min; Glucose 119 mg/dl (70-99); Potassium 3.9 mmol/L (3.5-5.1); Sodium 135 mmol/L (135-145); eGFR 16.87
[2024-04-19] MEDS: PROCARDIA XL (EXTENDED RELEASE) 90 MG PO (10:03)
[2024-04-19] MEDS: LIPITOR 40 MG PO (10:04)
[2024-04-19] MEDS: ZOLOFT 50 MG PO (10:05)
[2024-04-19] MEDS: SODIUM BICARBONATE 650 MG PO (10:05)
--- NOTE | 2024-04-19 10:55 | CM ---
Addendum entered by Alivia Bullard 04/19/24 14:12:
Ambulance transport scheduled for 5:00 p.m. Voicemail left for patients brother, Guero, with updated transport time.
Original Note:
Patient seen bedside, reports no needs to CM at this time. Patient is hopeful for discharge today, reports her brother will be at the hospital this morning. Patient reports she will need ambulance transport as she is bedbound, reports her caregiver
will be home, no steps to enter home through front porch. CM will continue to follow for all discharge planning needs.
Plan; home with family and caregiver, needs ambulance transport scheduled.
[2024-04-19 11:00] VITALS: BP 154/68
[2024-04-19] MEDS: APRESOLINE 10 MG IV (12:04)
--- NOTE | 2024-04-19 13:37 | W.PN.HOSP.TC ---
Today's Communication/Plan
-
Dc home today
Assessment / Plan
Assessment / Plan
A/P: Patient is a 78y F with PMH significant for morbid obesity, DM-II and CKD V (baseline creatinine 2.4-2.9) who presents to ED for evaluation of vaginal bleeding.
DUB / Uterine Fibroid
Acute Blood Loss Anemia on Anemia of Chronic Disease
- s/p 4 units PRBC so far. Repeat H/H at 9.2
- IV TXA administered in the ED; oral dosing ordered yesterday after discussion with PRECISION HONING MACHINE OPERATOR. Given renal function will decrease dosing
- PRECISION HONING MACHINE OPERATOR evaluation appreciated
- s/p UAE with IR. So far no further bleeding
- MRI pelvis Large necrotic and hemorrhagic uterine fundus fibroid with apparent blood products spilling into and expanding the endometrium and cervical/vaginal canals.
04/18
Hemoglobin stable
Acute renal failure on CKD V
Hyperkalemia secondary to the above
Chronic Non-Gapped Metabolic Acidosis secondary to the above
- creatinine stable
- Patient has been clear that she is not interested in HD should that be necessary.
- Avoid nephrotoxic medications.
- s/p bicarb infusion
- s/p Lokelma with normalization of K - stop further dosing
- Trend cr post contrast exposure. Cr at 2.8
- nephro consulted-nephrology signed
-Continue IVF
04/18
Creatinine stable, back to baseline.
Discontinue IV fluid
SIRS
Patient meets sepsis criteria with leukocytosis and fever.
No obvious source of infection.
Urine culture came back negative.
Patient denies coughing up blood she had cold symptoms 2 days ago which improved.
negative chest x-ray.
Hold start antibiotic for
Diet-Controlled DM-II
- Patient states that she 'used to have' DM-II.
- Not currently on any DM medications. A1C 5.2.
Anxiety / Depression
- Stable. Continue sertraline.
Hypertensive Urgency
-this happened post exertion getting into MRI, again this AM
-Increase procardia to 60mg daily. Can further increase dose if needed
Morbid Obesity
Chronically Bedbound
- Affects all aspects of care.
- Encourage healthy diet.
- Significant increase in activity not likely in this chronically bedbound individual.
Thrombocytopenia
-Unclear etiology for drop. platelet clumping this am. Repeat labs.
DVT Prophylaxis: SCDs in setting of bleeding
Code Status: DNR
Anticipated Discharge: Today
Subjective/Interval History
-
Date of Service: April 19, 2024
Patient seen and examined at bedside, denies any chest pain or shortness of breath, no abdominal pain, no nausea, no vomiting, had 3 episodes of diarrhea yesterday which then resolved.
Objective Data
-
Labs:
Laboratory Results
04/19/24
07:33
WBC 13.3 H
Hgb 8.7 L
Hct 25.3 L
Plt Count Not Reportable
Sodium 135
Potassium 3.9
Chloride 108 H
Carbon Dioxide 17 L
BUN 39 H
Creatinine 2.8 H
Glucose 119 H
Calcium 7.6 L
Vital Signs:
Vital Signs
Temp Pulse Resp BP Pulse Ox
98.8 F 98 18 174/68 98
04/19/24 11:00 04/19/24 12:04 04/19/24 11:00 04/19/24 12:04 04/19/24 11:00
I&O
04/18/24 04/19/24 04/20/24
06:59 06:59 06:59
Intake Total 1200 / 1200 1520 / 1520
Balance 1200 / 1200 1520 / 1520
Physical Exam
-
General: No Apparent Distress, Comfortable and Morbidly Obese
HEENT: Normocephalic, Atraumatic and Moist Mucous Membranes
Respiratory: Clear to Auscultation; Negative Wheezes
Cardiac: Regular Rhythm and S1/S2
GI: Soft, Nontender, Nondistended and Normal Bowel Sounds
Musculoskeletal: No Edema
Skin: Warm and Dry; Negative Rash
Neuro: Awake, Alert, Oriented, AO x 3 and No Motor Deficits
Psych: Calm
--- NOTE | 2024-04-19 13:39 | W.DCSUMMARY ---
Discharge Summary
Discharge Data
Date of Admission: 04/12/24
Date of Discharge: 04/19/24
-
Pending Results: No
Hospital Course
A/P: Patient is a 78y F with PMH significant for morbid obesity, DM-II and CKD V (baseline creatinine 2.4-2.9) who presents to ED for evaluation of vaginal bleeding.
DUB / Uterine Fibroid
Acute Blood Loss Anemia on Anemia of Chronic Disease
- s/p 4 units PRBC so far. Repeat H/H at 9.2
- IV TXA administered in the ED; oral dosing ordered yesterday after discussion with CD TECHNICIAN. Given renal function will decrease dosing
- CD TECHNICIAN evaluation appreciated
- s/p UAE with IR. So far no further bleeding
- MRI pelvis Large necrotic and hemorrhagic uterine fundus fibroid with apparent blood products spilling into and expanding the endometrium and cervical/vaginal canals.
04/18
Hemoglobin stable
Acute renal failure on CKD V
Hyperkalemia secondary to the above
Chronic Non-Gapped Metabolic Acidosis secondary to the above
- creatinine stable
- Patient has been clear that she is not interested in HD should that be necessary.
- Avoid nephrotoxic medications.
- s/p bicarb infusion
- s/p Lokelma with normalization of K - stop further dosing
- Trend cr post contrast exposure. Cr at 2.8
- nephro consulted-nephrology signed
-Continue IVF
04/18
Creatinine stable, back to baseline.
Discontinue IV fluid
SIRS
Patient meets sepsis criteria with leukocytosis and fever.
No obvious source of infection.
Urine culture came back negative.
Patient denies coughing up blood she had cold symptoms 2 days ago which improved.
negative chest x-ray.
Hold start antibiotic for
Diet-Controlled DM-II
- Patient states that she 'used to have' DM-II.
- Not currently on any DM medications. A1C 5.2.
Anxiety / Depression
- Stable. Continue sertraline.
Hypertensive Urgency
-this happened post exertion getting into MRI, again this AM
-Increase procardia to 60mg daily. Can further increase dose if needed
Morbid Obesity
Chronically Bedbound
- Affects all aspects of care.
- Encourage healthy diet.
- Significant increase in activity not likely in this chronically bedbound individual.
Thrombocytopenia
-Unclear etiology for drop. platelet clumping this am. Repeat labs.
DVT Prophylaxis: SCDs in setting of bleeding
Code Status: DNR
Discharge Plan
-
Patient Disposition: Home with Home Care
Discharge Diagnosis/Procedures: Acute blood loss anemia
Vaginal bleeding
Diet: No restrictions
Activity: No restrictions
Driving Restrictions: As prior to admission
Blood Work: CBC after one week
Referrals:
Bernie Tovar CRNP [Family Provider] -
Desi Pena MD [Active] - in one to two weeks
Prescriptions:
New
nifedipine 30 mg Tablet Extended Release
90 mg PO DAILY Qty: 30 0RF
Probiotic 3 billion cell capsule
3,000 mmu cells PO DAILY Qty: 30 0RF
Continued
atorvastatin 40 mg Tablet
40 mg PO DAILY
sodium bicarbonate 650 mg Tablet
650 mg PO BID
folic acid 1 mg Tablet
1 mg PO DAILY
sertraline 50 mg Tablet
50 mg PO DAILY
cholecalciferol (vitamin D3) 25 mcg (1,000 unit) Tablet
25 mcg PO DAILY
ferrous sulfate 324 mg (65 mg iron) Tablet,Delayed Release (Dr/Ec)
324 mg PO DAILY
fluticasone prp-sod.chl,bicarb 50 mcg- 0.9 % Kit,[place] Suspension And [place]
2 spray INTRANASAL DAILY PRN (Reason: rhinitis)
Centrum Minis Women 50 Plus 4 mg iron-200 mcg-25 mcg Tablet
1 tab PO DAILY
Discharge Orders:
Discharge Patient (As Directed); Ordered 04/19/24
Ordered By: Roseline Bundy
Discharge Date and Time
Print Language: CAMBODIAN
[2024-04-19 15:00] VITALS: BP 139/59
== END 2024-04-19 17:25 | disposition home health service (06) | DRG 749 ==
LOC: 4 EAST ACU 23:43
PROVIDERS: Hospitalist; Physician Assistant; Radiology Diagnostic Radiology; Student in an Organized Health Care Education/Training Program; ADMITTING PHYSICIAN Hospitalist; ATTENDING PHYSICIAN General Practice; EMERGENCY PHYSICIAN Emergency Medicine; FAMILY PHYSICIAN Nurse Practitioner Family; OTHER PHYSICIAN Obstetrics & Gynecology Gynecology; OTHER PHYSICIAN Student in an Organized Health Care Education/Training Program
PROC: 30233N1 Transfusion of Nonautologous Red Blood Cells into Peripheral Vein, Percutaneous Approach (ICD-10-PCS; 2024-04-12)
PROC: 5A09357 Assistance with Respiratory Ventilation, Less than 24 Consecutive Hours, Continuous Positive Airway Pressure (ICD-10-PCS; 2024-04-13)
PROC: 04LF3DU Occlusion of Left Uterine Artery with Intraluminal Device, Percutaneous Approach (ICD-10-PCS; 2024-04-15)
PROC: B41CYZZ Fluoroscopy of Pelvic Arteries using Other Contrast (ICD-10-PCS; 2024-04-15)
DX: D25.9 Leiomyoma of uterus, unspecified (principal); D62 Acute posthemorrhagic anemia; E87.22 Chronic metabolic acidosis; N18.5 Chronic kidney disease, stage 5; I12.0 Hypertensive chronic kidney disease with stage 5 chronic kidney disease or end stage renal disease; Z68.43 Body mass index [BMI] 50.0-59.9, adult; N17.9 Acute kidney failure, unspecified; R65.10 Systemic inflammatory response syndrome (SIRS) of non-infectious origin without acute organ dysfunction; Z66 Do not resuscitate; E11.40 Type 2 diabetes mellitus with diabetic neuropathy, unspecified; G47.30 Sleep apnea, unspecified; E11.22 Type 2 diabetes mellitus with diabetic chronic kidney disease; E66.01 Morbid (severe) obesity due to excess calories; D63.1 Anemia in chronic kidney disease; E87.5 Hyperkalemia; F41.9 Anxiety disorder, unspecified; F32.A Depression, unspecified; I16.0 Hypertensive urgency; D69.6 Thrombocytopenia, unspecified; Z74.01 Bed confinement status; Z11.52 Encounter for screening for COVID-19
CPT/HCPCS: 36246; 36430; 37243; 71045; 72195; 74176; 75736; 76937; 80048; 80053; 81003; 81015; 83036; 83540; 83550; 83735; 84132; 85014; 85018; 85025; 85027; 85610; 85730; 86803; 86850; 86900; 86901; 86920; 87040; 87086; 87811; 94660; 96374; 99152; 99153; 99285; C1769; P9016; P9040

== ENCOUNTER 2024-05-27 16:55 | Inpatient (IN) | payer OTHER, SELFPAY ==
[2024-05-27] VITALS (14 sets, daily range): BP systolic 122–163; BP diastolic 47–91; PULSE 89
[2024-05-27 13:56] LABS: Hematocrit 17.7 % (37.0-47.0); Hemoglobin 5.8 g/dL (12.0-16.0); Mean Corp Hgb Conc. 32.8 g/dL (33.0-37.0); Mean Corpuscular Hgb 29.1 pg (27.0-31.0); Mean Corpuscular Volume 88.9 fL (81.0-99.0); Mean Platelet Volume 9.3 fL (7.4-10.4); Platelet Count 320 10^3/uL (130-400); Red Blood Cell Count 1.99 10^6/uL (4.20-5.40); Red Cell Dist. Width 14.7 % (11.5-14.5); White Blood Cell Count 19.7 10^3/uL (4.8-10.8)
--- NOTE | 2024-05-27 14:02 | ED.GENMED ---
History of Present Illness
<Izzy Quiroz PA-C - Last Filed: 05/27/24 18:13>
General
Chief Complaint: Abnormal Lab Value
Source: patient and records
Time Seen by Provider: 05/27/24 13:39
History of Present Illness
History of Present Illness:
78yoF with a history of morbid obesity with bedbound status, hypertension, and uterine fibroids presenting for evaluation of an abnormal outpatient lab. Patient was admitted from 04/12/24-04/19/24 for vaginal bleeding and anemia. The source of her
bleeding was thought to be related to uterine fibroids. She underwent uterine artery embolization during her hospitalization. Hemoglobin was 8.7 at time of discharge. Patient reports she started spiking a fever on the day of her discharge. She
continued to have fevers at home and her PCP started her on antibiotics for an infection which she finished about 10 days ago. She is unsure what type of infection she was treated for. Patient had a CBC on 05/01/24 and hemoglobin was 6.9. She had
repeat blood work last week and hemoglobin was in the 6 range. She was called by her PCP today and advised to go to the ED for evaluation. Patient denies any further vaginal bleeding since discharge. She also denies any hematochezia or melena.
Phy Exam
<Izzy Quiroz PA-C - Last Filed: 05/27/24 18:13>
Physical Exam
Physical Exam:
Chronically ill appearing female in no distress
General Physical Exam
General Presentation: no apparent distress
General age: appears stated age
General Skin: warm, dry and pale
General Habitus: elderly and obese
General Mental: alert
Cardiovascular Exam
Cardiovascular Exam: regular rate/rhythm
Pulmonary Exam
Pulmonary Exam: lungs clear, no respiratory distress, no crackles and no wheezing
Gastrointestinal Exam
Gastrointestinal Exam: non tender, soft, non distended and other (Umbilical hernia noted)
Rectal Exam: other (Stool green in color. Hemoccult negative. )
Skin Exam
Skin Exam: warm/dry
Psychiatric Exam
Psychiatric Exam: normal mood/affect
Course
<Izzy Quiroz PA-C - Last Filed: 05/27/24 18:13>
Orders/Labs/Results
Orders:
Orders
05/27/24 12:43
Type+Screen Urgent
Complete Blood Count/With Diff Urgent
Comprehensive Metabolic Panel Urgent
Iron Urgent
Comment: ADD ON
Total Iron Binding Urgent
Comment: ADD ON
05/27/24 12:53
B12 [Vitamin B12] Routine
Comment: ADD ON
Ferritin Routine
Comment: ADD ON
Folate Routine
Comment: ADD ON
05/27/24 14:07
CR Chest - 2 Views Urgent
Comment:
Reason For Exam: Fever
05/27/24 14:22
Blood Bank Products [* Blood Bank Products] Urgent
Blood Bank Products: *Packed RBC Leuko(PRBC's)
Quantity: 2
Transfuse Today: Yes
Reason: Anemia
05/27/24 14:28
CT Abd/pel Without Iv Or Oral Urgent
Comment:
Reason For Exam: Fever
05/27/24 14:29
COVID-19 Antigen Urgent
Source: Nasal Swab
05/27/24 Dinner
Regular
At Your Request: Full Participation
05/27/24 15:11
Urinalysis Reflex To Culture Urgent
Date Specimen was Collected: 05/27/24
Time Specimen was Collected: 15:06
Urine Microscopic Reflex Cult Urgent
Urine Culture Urgent
ANUSHA Source: U
Specimen Description:
Date Specimen was Collected: 05/27/24
Time Specimen was Collected: 15:06
05/27/24 16:29
Admit/Transfer Patient As Directed
Co-Sign Provider:
Level of Care: Inpatient admission
Assign to:: Medical/Surgical
Physician / Group: anitha
Diagnosis: anemia
Reason for Hospitalization: anemia
Expected length of stay greater than two midnights?: Yes
ELOS- Estimated Length of Stay in days: 2
I certify the patient meets the requirements for IP care: Yes
PRN Pain Medication Management As Directed
May give lesser potent ordered pain med per pt: Yes
preference::
Protocol:: Medication orders for pain may be administered in a
manner that supports deferring to patient preference
when the pt is:
- Requesting an ordered lesser potent pain medication.
Least to most potent pain medications are defined
as: acetaminophen < NSAID < tramadol < opioids
(morphine, oxycodone, hydromorphone).
- Requesting a lesser dose of the same medication IF
ORDERED.
- Requesting a less intrusive route of administration
if both routes are prescribed by the provider (PO <
IV).
05/27/24 16:30
Code Status As Directed
Resuscitation Status: Do not resuscitate
Reached after discussion with pt or family/Healthcare POA: Yes
DNR Bracelet Application ONCE
05/27/24 17:21
Activity As Directed
Activity Level: As Tolerated
Pneumatic Compression Sleeves As Directed
Type: Knee high
Vital Signs As Directed
Frequency: Per unit guidelines
DX Deep Vein Thrombosis Video Routine
05/27/24 20:00
Sodium Bicarbonate 650 mg PO BID
05/28/24 08:00
Atorvastatin [Lipitor] 40 mg PO DAILY
Cholecalciferol (Vitamin D3) [VITAMIN D3 (cholecalciferol)] 25 mcg PO DAILY
FOLic ACID [Folvite] 1 mg PO DAILY
Ferrous Sulfate [Feosol] 325 mg PO DAILY
Lactobac/Bifidobac [Visbiome] 1 cap PO DAILY
Multivitamin [Theragran] 1 tablet PO DAILY
NIFEdipine EXTENDED RELEASE [Procardia Xl (Extended Release)] 90 mg PO DAILY
Sertraline HCl [Zoloft] 50 mg PO DAILY
05/28/24 08:08
Complete Blood Count/With Diff IN AM
Comprehensive Metabolic Panel IN AM
Abnormal Lab Results
05/27/24 05/27/24 05/27/24
12:43 12:53 15:11
WBC 19.7 H 10^3/uL
(4.8-10.8)
RBC 1.99 L 10^6/uL
(4.20-5.40)
Hgb 5.8 L* g/dL
(12.0-16.0)
Hct 17.7 L* %
(37.0-47.0)
MCHC 32.8 L g/dL
(33.0-37.0)
RDW 14.7 H %
(11.5-14.5)
Abs Immat Gran (auto) 0.2 H 10^3/uL
(0-0.05)
Absolute Neuts (auto) 17.4 H 10^3/uL
(1.4-6.5)
Absolute Lymphs (auto) 1.1 L 10^3/uL
(1.2-3.4)
Absolute Monos (auto) 1.0 H 10^3/uL
(0.1-0.6)
Immature Gran % 1.0 H %
(0-0.5)
Neutrophils % 88.0 H %
(42.2-75.2)
Lymphocytes % 5.4 L %
(20.5-51.1)
Carbon Dioxide 18 L mmol/L
(22-30)
BUN 32 H mg/dl
(7-17)
Creatinine 2.8 H mg/dL
(0.6-1.0)
Glucose 158 H mg/dl
(70-99)
Calcium 7.9 L mg/dl
(8.4-10.2)
Iron < 20 L ug/dl
(37-170)
TIBC 129 L ug/dl
(265-497)
Ferritin 289.0 H ng/ml
(11.1-264.0)
AST 45 H U/L
(14-36)
ALT 47 H U/L
(0-35)
Total Protein 5.5 L g/dl
(6.3-8.2)
Albumin 2.4 L g/dl
(3.5-5.0)
Vitamin B12 995 H pg/ml
(239-931)
Folate > 20.0 H ng/ml
(2.76-20)
Ur Occult Blood Reflex 4+ A
(Negative)
Urine Nitrite (Reflex) Positive A
(Negative)
Leukocyte Esterase Rfl 2+ A
(Negative)
Urine RBC 3-6 A /HPF
(0-2)
Urine WBC (Reflex) 16-20 A /HPF
(0-5)
Urine Bacteria (Reflex) Many A
(Negative)
Crossmatch IS Only See Detail
05/27/24 12:43
05/27/24 12:43
Vital Signs
Initial and Last Documented VS:
Initial Vital Signs
Pulse Resp
96 18
05/27/24 12:41 05/27/24 12:41
Last Documented Vital Signs
Temp Pulse Resp BP Pulse Ox
98.8 F 87 24 159/60 98
05/28/24 16:21 05/28/24 16:21 05/28/24 16:21 05/28/24 16:21 05/28/24 16:21
<MADISON Moore - Last Filed: 05/28/24 23:39>
Orders/Labs/Results
Orders:
Orders
05/27/24 12:43
Type+Screen Urgent
Complete Blood Count/With Diff Urgent
Comprehensive Metabolic Panel Urgent
Iron Urgent
Comment: ADD ON
Total Iron Binding Urgent
Comment: ADD ON
05/27/24 12:53
B12 [Vitamin B12] Routine
Comment: ADD ON
Ferritin Routine
Comment: ADD ON
Folate Routine
Comment: ADD ON
05/27/24 14:07
CR Chest - 2 Views Urgent
Comment:
Reason For Exam: Fever
05/27/24 14:22
Blood Bank Products [* Blood Bank Products] Urgent
Blood Bank Products: *Packed RBC Leuko(PRBC's)
Quantity: 2
Transfuse Today: Yes
Reason: Anemia
05/27/24 14:28
CT Abd/pel Without Iv Or Oral Urgent
Comment:
Reason For Exam: Fever
05/27/24 14:29
COVID-19 Antigen Urgent
Source: Nasal Swab
05/27/24 Dinner
Regular
At Your Request: Full Participation
05/27/24 15:11
Urinalysis Reflex To Culture Urgent
Date Specimen was Collected: 05/27/24
Time Specimen was Collected: 15:06
Urine Microscopic Reflex Cult Urgent
Urine Culture Urgent
ANUSHA Source: U
Specimen Description:
Date Specimen was Collected: 05/27/24
Time Specimen was Collected: 15:06
05/27/24 16:29
Admit/Transfer Patient As Directed
Co-Sign Provider:
Level of Care: Inpatient admission
Assign to:: Medical/Surgical
Physician / Group: anitha
Diagnosis: anemia
Reason for Hospitalization: anemia
Expected length of stay greater than two midnights?: Yes
ELOS- Estimated Length of Stay in days: 2
I certify the patient meets the requirements for IP care: Yes
PRN Pain Medication Management As Directed
May give lesser potent ordered pain med per pt: Yes
preference::
Protocol:: Medication orders for pain may be administered in a
manner that supports deferring to patient preference
when the pt is:
- Requesting an ordered lesser potent pain medication.
Least to most potent pain medications are defined
as: acetaminophen < NSAID < tramadol < opioids
(morphine, oxycodone, hydromorphone).
- Requesting a lesser dose of the same medication IF
ORDERED.
- Requesting a less intrusive route of administration
if both routes are prescribed by the provider (PO <
IV).
05/27/24 16:30
Code Status As Directed
Resuscitation Status: Do not resuscitate
Reached after discussion with pt or family/Healthcare POA: Yes
DNR Bracelet Application ONCE
05/27/24 17:21
Activity As Directed
Activity Level: As Tolerated
Pneumatic Compression Sleeves As Directed
Type: Knee high
Vital Signs As Directed
Frequency: Per unit guidelines
DX Deep Vein Thrombosis Video Routine
05/27/24 20:00
Sodium Bicarbonate 650 mg PO BID
05/28/24 08:00
Atorvastatin [Lipitor] 40 mg PO DAILY
Cholecalciferol (Vitamin D3) [VITAMIN D3 (cholecalciferol)] 25 mcg PO DAILY
FOLic ACID [Folvite] 1 mg PO DAILY
Ferrous Sulfate [Feosol] 325 mg PO DAILY
Lactobac/Bifidobac [Visbiome] 1 cap PO DAILY
Multivitamin [Theragran] 1 tablet PO DAILY
NIFEdipine EXTENDED RELEASE [Procardia Xl (Extended Release)] 90 mg PO DAILY
Sertraline HCl [Zoloft] 50 mg PO DAILY
05/28/24 08:08
Complete Blood Count/With Diff IN AM
Comprehensive Metabolic Panel IN AM
Abnormal Lab Results
05/27/24 05/27/24 05/27/24
12:43 12:53 15:11
WBC 19.7 H 10^3/uL
(4.8-10.8)
RBC 1.99 L 10^6/uL
(4.20-5.40)
Hgb 5.8 L* g/dL
(12.0-16.0)
Hct 17.7 L* %
(37.0-47.0)
MCHC 32.8 L g/dL
(33.0-37.0)
RDW 14.7 H %
(11.5-14.5)
Abs Immat Gran (auto) 0.2 H 10^3/uL
(0-0.05)
Absolute Neuts (auto) 17.4 H 10^3/uL
(1.4-6.5)
Absolute Lymphs (auto) 1.1 L 10^3/uL
(1.2-3.4)
Absolute Monos (auto) 1.0 H 10^3/uL
(0.1-0.6)
Immature Gran % 1.0 H %
(0-0.5)
Neutrophils % 88.0 H %
(42.2-75.2)
Lymphocytes % 5.4 L %
(20.5-51.1)
Carbon Dioxide 18 L mmol/L
(22-30)
BUN 32 H mg/dl
(7-17)
Creatinine 2.8 H mg/dL
(0.6-1.0)
Glucose 158 H mg/dl
(70-99)
Calcium 7.9 L mg/dl
(8.4-10.2)
Iron < 20 L ug/dl
(37-170)
TIBC 129 L ug/dl
(265-497)
Ferritin 289.0 H ng/ml
(11.1-264.0)
AST 45 H U/L
(14-36)
ALT 47 H U/L
(0-35)
Total Protein 5.5 L g/dl
(6.3-8.2)
Albumin 2.4 L g/dl
(3.5-5.0)
Vitamin B12 995 H pg/ml
(239-931)
Folate > 20.0 H ng/ml
(2.76-20)
Ur Occult Blood Reflex 4+ A
(Negative)
Urine Nitrite (Reflex) Positive A
(Negative)
Leukocyte Esterase Rfl 2+ A
(Negative)
Urine RBC 3-6 A /HPF
(0-2)
Urine WBC (Reflex) 16-20 A /HPF
(0-5)
Urine Bacteria (Reflex) Many A
(Negative)
Crossmatch IS Only See Detail
05/27/24 12:43
05/27/24 12:43
Vital Signs
Initial and Last Documented VS:
Initial Vital Signs
Pulse Resp
96 18
05/27/24 12:41 05/27/24 12:41
Last Documented Vital Signs
Temp Pulse Resp BP Pulse Ox
98.8 F 87 24 159/60 98
05/28/24 16:21 05/28/24 16:21 05/28/24 16:21 05/28/24 16:21 05/28/24 16:21
[place];Izzy Quiroz PA-C - Last Filed: 05/27/24 18:13>
MDM/Problems Addressed
Differential Diagnosis Includes:
78yoF here with anemia on outpatient labs. Recent admission for vaginal bleeding and anemia. Hemoglobin 8.7 at discharge. Outpatient hemoglobin in the 6 range last week. Patient denies any bleeding currently. Vitals are stable. She is pale but
non-toxic. Hemoccult negative. Differential diagnosis includes but is not limited to: anemia, GI bleed, iron deficiency
Initial ED plan: Check CBC, CMP, type and screen. Patient also reporting fevers on and off this month. Will check CXR, CT abdomen, and UA.
<MADISON Moore - Last Filed: 05/28/24 23:39>
MDM/Problems Addressed
MDM/Problems Addressed:
i did not participate in patient's care
<Izzy Quiroz PA-C - Last Filed: 05/27/24 18:13>
*Critical Care Note
Total Time (30-74mins, 75-104mins- exclusive of procedures): Not Applicable
<Izzy Quiroz PA-C - Last Filed: 05/27/24 18:13>
Update Note
Update Note:
Hemoglobin 5.8. Two units pRBCs ordered for transfusion after consent obtained. Leukocytosis noted with a WBC of 19. UA pending. She was admitted for further evaluation and management.
ED Attending Note
<Izzy Quiroz PA-C - Last Filed: 05/27/24 18:13>
-
Portions of this chart may have been created with voice recognition software.� Occasional wrong word or��sound alike� substitutions may have occurred due to the inherent limitations of voice recognition software.
Discharge Plan
Departure
Patient Disposition: Admit
Date of Disposition: 05/27/24
Time of Disposition: 15:57
Presentation/result/management discussed w/ accepting MD/DO: Hospitalist
Discharge Problem:
Anemia
Interventions
Interventions:
*Risk Screen - Suicide Last Done: 05/27/24 12:37
*General Assessment Last Done: 05/27/24 12:37
*Neglect/Abuse Screening Last Done: 05/27/24 12:37
*ED COVID-19 Vaccine History Last Done: 05/27/24 12:39
*Nursing Disposition Last Done: 05/27/24 17:31
Discharge Date and Time
Discharge Date/Time: 05/27/24 17:31
[2024-05-27 14:05] LABS: % Basophils 0.3 % (0-2); % Eosinophils 0.2 % (0-6); % Lymphocytes 5.4 % (20.5-51.1); % Monocytes 5.1 % (1.7-9.3); Absolute Basophils 0.1 10^3/uL (0-0.2); Absolute Immature Granulocytes 0.2 10^3/uL (0-0.05); Absolute Lymphocytes 1.1 10^3/uL (1.2-3.4); Absolute Neutrophils 17.4 10^3/uL (1.4-6.5); Nucleated Red Blood Cells % 0 %
[2024-05-27 14:25] LABS: ALT (SGPT) 47 U/L (0-35); AST (SGOT) 45 U/L (14-36); Albumin 2.4 g/dl (3.5-5.0); Alkaline Phosphatase 117 U/L (38-126); Blood Urea Nitrogen 32 mg/dl (7-17); Calcium 7.9 mg/dl (8.4-10.2); Carbon Dioxide 18 mmol/L (22-30); Chloride 105 mmol/L (98-107); Glucose 158 mg/dl (70-99); Potassium 4.4 mmol/L (3.5-5.1); Sodium 135 mmol/L (135-145); Total Bilirubin 0.4 mg/dl (0.2-1.3); Total Protein 5.5 g/dl (6.3-8.2); eGFR 16.87
[2024-05-27 14:50] LABS: COVID-19 Antigen Negative (Negative)
[2024-05-27 16:19] LABS: Urine Albumin Trace (Neg - Trace); Urine Bilirubin Negative (Negative); Urine Character Very Cloudy (Clear); Urine Color Yellow; Urine Glucose Negative (Negative); Urine Ketone Negative (Negative); Urine Leukocyte 2+ (Negative); Urine Nitrite Positive (Negative); Urine Occult Blood 4+ (Negative); Urine Urobilinogen Negative (Neg - 1+)
--- NOTE | 2024-05-27 16:31 | HPS.HSE ---
Addendum entered and electronically signed by Adwoa Leigh MD 05/27/24 23:54:
CT shows new foci of gas within the lesion which may be postprocedural necrosis vs superimposed infection. Started zosyn. Gynecology consulted.
Original Note:
Family Physician
-
Family Physician: MADISON Oliver
Chief Complaint
-
anemia
History of Present Illness
78-year-old female past medical history of obesity, hypertension, uterine fibroids, CKD 4, diabetes, anxiety/depression, presenting for low hemoglobin on outpatient labs of 6.9.
Patient was admitted from 04/12 to 04/19 for vaginal bleeding and anemia secondary to uterine fibroid. She underwent uterine artery embolization during hospitalization. Hemoglobin was 8.7 at time of discharge. She started having a fever on the day
of discharge and continued to have fevers at home and primary care physician started her on antibiotic for infection which she finished 10 days ago.
She denies any further fevers or chills. She denies any vaginal bleeding. She denies any blood in the stool or dark stool. She has been having loose stools intermittently for the past few weeks but these have become more solid over the past 2
days. She denies any abdominal pain. She denies any nausea or vomiting. She denies dizziness. Denies any chest pain. Has some slight fatigue but generally feels well.
Since the procedure she has a slight cough and some mild wheeze but denies any shortness of breath. She has chronic lower extremity edema which is slightly worse than usual. She denies any weight gain.
She denies any urinary symptoms such as burning or frequency or pain in the bladder area.
She denies smoking or alcohol use.
Medical History
Past Medical History
Past Medical History: Reports Other (obesity, hypertension, uterine fibroids, CKD 4, diabetes, anxiety/depression,)
Past Surgical History: Reports Other (uterine artery embolization )
Social History
Tobacco: Non-smoker
Alcohol: None
Drug: None
Family History
Family History: Not pertinent
Allergies / Home Medications
Allergies reflects when Allergies were last updated in [facility].
Home Medications with original date entered in [facility]
Allergy/Medication List:
Allergies
Allergy/AdvReac Type Severity Reaction Status Date / Time
No Known Allergies Allergy Unverified 04/12/24 17:43
Home Medications
atorvastatin 40 mg tablet 40 mg PO DAILY High Cholesterol 04/12/24
cholecalciferol (vitamin D3) 25 mcg (1,000 unit) tablet 25 mcg PO DAILY Supplement 04/12/24
ferrous sulfate 324 mg (65 mg iron) tablet,delayed release 324 mg PO DAILY Supplement 04/12/24
fluticasone prop.50 mcg spray,suspen-sod.chloride 0.9% nasal spray kit 2 spray intranasal DAILY PRN rhinitis 04/12/24
folic acid 1 mg tablet 1 mg PO DAILY Supplement 04/12/24
scszzmyx-etx-zmjz 4 mg-folic acid 200 mcg-vit K 25 mcg-lutein tablet (Centrum Minis Women 50 Plus) 1 tab PO DAILY Supplement 04/12/24
sertraline 50 mg tablet 50 mg PO DAILY Mental Health/Anxiety 04/12/24
sodium bicarbonate 650 mg tablet 650 mg PO BID ALKILINIZER 04/12/24
lactobacillus combination no.4 3 billion cell capsule (Probiotic) 3,000 mmu cells PO DAILY #30 caps 04/19/24
nifedipine 30 mg tablet,extended release 90 mg (3 x 30 mg) PO DAILY Blood pressure #30 tabs 04/19/24
Review of Systems
-
History Source: Patient
A 12 point ROS was completed and negative except as noted: Yes
Constitutional: Reports No Symptoms
EENT: Reports No Symptoms
Respiratory: Reports No Symptoms
Cardiac: Reports No Symptoms
Abdomen/GI: Reports No Symptoms
: Reports No Symptoms
Musculoskeletal: Reports No Symptoms
Skin: Reports No Symptoms
Neurological: Reports No Symptoms
Endocrine: Reports No Symptoms
Hematologic/Lymphatic: Reports No Symptoms
Psych: Reports No Symptoms
Physical Exam
Vital Signs
Vital Signs
Temp Pulse Resp BP Pulse Ox
97.7 F 75 16 148/71 100
05/27/24 15:38 05/27/24 16:00 05/27/24 15:38 05/27/24 16:00 05/27/24 16:00
Physical Exam
General: Well Developed, Well Nourished and No Apparent Distress
HEENT: NormoCephalic, Moist mucous membranes and Atraumatic
Respiratory: Clear
Cardiac: S1/S2 and Regular Rhythm; No Murmur or Rub
GI: Soft, Non Tender, Non Distended and Normal Bowel Sounds; No Organomegaly
Rectal: Deferred by Provider
Musculoskeletal: No Clubbing, No Cyanosis and No Edema
Skin: No Rash
Neuro: Nonfocal/grossly intact
Laboratory Results
-
05/27/24 12:43
05/27/24 12:43
Laboratory Results
Total Bilirubin 0.4 mg/dl (0.2-1.3) 05/27/24 12:43
AST 45 U/L (14-36) H 05/27/24 12:43
ALT 47 U/L (0-35) H 05/27/24 12:43
Alkaline Phosphatase 117 U/L (38-126) 05/27/24 12:43
Data Reviewed
-
Lab Data: Labs Reviewed by me
Old Records: Reviewed
Impression/Plan
-
IMPRESSION:
PLAN:
# Acute on chronic normocytic anemia likely due to anemia of chronic kidney disease
# Recent vaginal bleeding secondary to uterine fibroids status post uterine artery embolization
-No vaginal, urinary or rectal bleeding as per patient
-Hemoccult negative
-2 units of blood
-Check iron studies, B12 and folate
-May benefit from iron infusion/erythropoietin
# Recent fevers secondary to necrotic uterine fibroid
-Was noted to have necrotic fibroid per recent gynecology notes
-Leukocytosis has worsened although fevers have resolved since outpatient antibiotic
-Check CT abdomen pelvis to evaluate for necrotic fibroid although not presenting with signs or symptoms of intra-abdominal infection/sepsis
# Possible asymptomatic pyuria
-Complete UA results pending
-Patient denies any urinary symptoms
# Intermittent loose stools
-Continue to monitor
# Mild transaminitis possibly from recent antibiotic
-Continue to monitor
Asymptomatic umbilical hernia
Essential hypertension
-Continue nifedipine
Type 2 diabetes
-Not on treatment
CKD 4
-Renal function at baseline
-Continue sodium bicarbonate
-Chest x-ray shows very mild fluid retention
Obesity
Anxiety/depression
-Continue sertraline
Hyperlipidemia
-Continue statin
DNR/DNI
DVT prophylaxis SCDs
Regular diet
[2024-05-27 17:07] LABS: Urine Amorphous Seen
[2024-05-27 17:08] LABS: Urine Bacteria Many (Negative); Urine White Cell 16-20 /HPF (0-5)
--- NOTE | 2024-05-27 19:47 | PTCARENOTE ---
Received pt form ED. AAOx3. Pt denies pain or discomfort. Oriented to unit. Plan of care is ongoing.
[2024-05-27] MEDS: SODIUM BICARBONATE 650 MG PO (21:30)
[2024-05-27 22:23] LABS: Iron < 20 ug/dl (37-170)
[2024-05-27 22:30] LABS: Total Iron Binding Capacity 129 ug/dl (265-497)
[2024-05-28 00:06] LABS: Folate > 20.0 ng/ml (2.76-20)
[2024-05-28 00:20] VITALS: BP 136/52
[2024-05-28] MEDS: ZOSYN 50 IV ×2 (00:29→06:18)
[2024-05-28 01:17] LABS: Vitamin B12 995 pg/ml (239-931)
[2024-05-28 06:36] VITALS: BMI 56.0
[2024-05-28 07:25] VITALS: BP 152/54
[2024-05-28] MEDS: PROCARDIA XL (EXTENDED RELEASE) 90 MG PO (08:48)
[2024-05-28] MEDS: LIPITOR 40 MG PO (08:49)
[2024-05-28] MEDS: VITAMIN D3 (cholecalciferol) 25 MCG PO (08:49)
[2024-05-28] MEDS: ZOLOFT 50 MG PO (08:49)
[2024-05-28] MEDS: FOLVITE 1 MG PO (08:49)
[2024-05-28] MEDS: THERAGRAN 1 TABLET PO (08:50)
[2024-05-28] MEDS: VISBIOME 1 CAP PO (08:50)
[2024-05-28] MEDS: SODIUM BICARBONATE 650 MG PO ×2 (08:50→21:18)
[2024-05-28 09:06] LABS: % Basophils 0.2 % (0-2); % Eosinophils 0.6 % (0-6); % Lymphocytes 5.5 % (20.5-51.1); % Monocytes 6.3 % (1.7-9.3); % Neutrophils 86.4 % (42.2-75.2); Absolute Eosinophils 0.1 10^3/uL (0-0.7); Absolute Immature Granulocytes 0.2 10^3/uL (0-0.05); Absolute Lymphocytes 0.9 10^3/uL (1.2-3.4); Hematocrit 22.8 % (37.0-47.0); Hemoglobin 7.5 g/dL (12.0-16.0); Mean Corp Hgb Conc. 32.9 g/dL (33.0-37.0); Mean Corpuscular Hgb 28.8 pg (27.0-31.0); Mean Corpuscular Volume 87.7 fL (81.0-99.0); Mean Platelet Volume 9.5 fL (7.4-10.4); Nucleated Red Blood Cells % 0 %; Platelet Count 280 10^3/uL (130-400); Red Cell Dist. Width 16.3 % (11.5-14.5); White Blood Cell Count 16.3 10^3/uL (4.8-10.8)
[2024-05-28 10:11] LABS: ALT (SGPT) 38 U/L (0-35); AST (SGOT) 34 U/L (14-36); Albumin 2.4 g/dl (3.5-5.0); Alkaline Phosphatase 108 U/L (38-126); Blood Urea Nitrogen 36 mg/dl (7-17); Calcium 7.8 mg/dl (8.4-10.2); Carbon Dioxide 18 mmol/L (22-30); Chloride 107 mmol/L (98-107); Estimated Creatinine Clearance 20 ml/min; Glucose 101 mg/dl (70-99); Potassium 4.7 mmol/L (3.5-5.1); Sodium 137 mmol/L (135-145); Total Protein 5.4 g/dl (6.3-8.2); eGFR 16.17
[2024-05-28] MEDS: FERRLECIT 110 MG IV (13:27)
--- NOTE | 2024-05-28 14:04 | W.PN.HOSP.TC ---
Today's Communication/Plan
-
monitor cbc
iv iron infusion
ceftriaxone, f/u urine cultures
disability services coordinator recs
Assessment / Plan
Assessment / Plan
Physical Exam
General: Well Developed, Well Nourished and No Apparent Distress
HEENT: NormoCephalic, Moist mucous membranes and Atraumatic
Respiratory: Clear
Cardiac: S1/S2 and Regular Rhythm; No Murmur or Rub
GI: Soft, Non Tender, Non Distended and Normal Bowel Sounds; No Organomegaly
Rectal: Deferred by Provider
Musculoskeletal: No Clubbing, No Cyanosis and No Edema
Skin: No Rash
Neuro: Nonfocal/grossly intact
# Acute on chronic normocytic anemia likely due to anemia of chronic kidney disease
#Iron Deficiency Anemia
# Recent vaginal bleeding secondary to uterine fibroids status post uterine artery embolization
-No vaginal, urinary or rectal bleeding as per patient
-Hemoccult negative
-2 units of blood - responded well
-ctm
-start IV Iron
# Recent fevers secondary to necrotic uterine fibroid
#UTI, EColi
-Was noted to have necrotic fibroid per recent gynecology notes - new foci of gas within the lesion which may be postprocedural necrosis given recent uterine artery embolization, rather than superimposed infection.
-symptomatic urinary issues
-Start on ceftriaxone
-F/u cultures
# Intermittent loose stools
-Continue to monitor
# Mild transaminitis possibly from recent antibiotic
-Continue to monitor
Asymptomatic umbilical hernia
Essential hypertension
-Continue nifedipine
Type 2 diabetes
-Not on treatment
CKD 4
-Renal function at baseline
-Continue sodium bicarbonate
Obesity
Anxiety/depression
-Continue sertraline
Hyperlipidemia
-Continue statin
DNR/DNI
DVT prophylaxis SCDs
Regular diet
Anticipated Discharge: 24 - 48 hours
Subjective/Interval History
-
Date of Service: May 28, 2024
No complaints overnight, responded well to transfusion
Objective Data
-
Labs:
Laboratory Results
05/28/24
08:08
WBC 16.3 H
Hgb 7.5 L D
Hct 22.8 L
Plt Count 280
Sodium 137
Potassium 4.7
Chloride 107
Carbon Dioxide 18 L
BUN 36 H
Creatinine 2.9 H
Glucose 101 H
Calcium 7.8 L
Total Bilirubin 1.0
AST 34
ALT 38 H
Alkaline Phosphatase 108
Vital Signs:
Vital Signs
Temp Pulse Resp BP Pulse Ox
98.1 F 84 20 152/54 98
05/28/24 07:25 05/28/24 07:25 05/28/24 07:25 05/28/24 07:25 05/28/24 07:25
I&O
05/27/24 05/28/24 05/29/24
06:59 06:59 06:59
Intake Total 500 / 500
Balance 500 / 500
Review of Systems
-
History Source: Patient
All other systems: Not reviewed unless documented
Data Reviewed
-
Diagnostic Radiology: Image personally visualized and interpreted and Report Reviewed by me
CT Scan: Image personally visualized and interpreted and Report Reviewed by me
Labs: Labs Reviewed by me
[2024-05-28] MEDS: ROCEPHIN 1000 MG IV (16:19)
[2024-05-28] MEDS: STERILE WATER FOR INJECTION 10 ML IV (16:19)
[2024-05-28 16:21] VITALS: BP 159/60
[2024-05-28 22:04] VITALS: PULSE 82
[2024-05-28 23:44] VITALS: BP 135/48
[2024-05-29 07:18] LABS: Hematocrit 22.5 % (37.0-47.0); Hemoglobin 7.5 g/dL (12.0-16.0); Mean Corp Hgb Conc. 33.3 g/dL (33.0-37.0); Mean Corpuscular Hgb 28.5 pg (27.0-31.0); Mean Corpuscular Volume 85.6 fL (81.0-99.0); Mean Platelet Volume 9.8 fL (7.4-10.4); Platelet Count 258 10^3/uL (130-400); Red Blood Cell Count 2.63 10^6/uL (4.20-5.40); Red Cell Dist. Width 16.4 % (11.5-14.5); White Blood Cell Count 15.6 10^3/uL (4.8-10.8)
[2024-05-29 07:52] VITALS: BP 169/63
[2024-05-29 07:58] LABS: ALT (SGPT) 29 U/L (0-35); AST (SGOT) 24 U/L (14-36); Albumin 2.3 g/dl (3.5-5.0); Alkaline Phosphatase 108 U/L (38-126); Blood Urea Nitrogen 35 mg/dl (7-17); Calcium 7.8 mg/dl (8.4-10.2); Carbon Dioxide 19 mmol/L (22-30); Chloride 107 mmol/L (98-107); Estimated Creatinine Clearance 21 ml/min; Glucose 83 mg/dl (70-99); Magnesium 1.7 mg/dl (1.6-2.3); Potassium 4.4 mmol/L (3.5-5.1); Sodium 137 mmol/L (135-145); Total Bilirubin 0.5 mg/dl (0.2-1.3); Total Protein 5.2 g/dl (6.3-8.2); eGFR 16.87
[2024-05-29] MEDS: THERAGRAN 1 TABLET PO (08:42)
[2024-05-29] MEDS: FOLVITE 1 MG PO (08:42)
[2024-05-29] MEDS: LIPITOR 40 MG PO (08:42)
[2024-05-29] MEDS: ZOLOFT 50 MG PO (08:43)
[2024-05-29] MEDS: VITAMIN D3 (cholecalciferol) 25 MCG PO (08:43)
[2024-05-29] MEDS: VISBIOME 1 CAP PO (08:43)
[2024-05-29] MEDS: SODIUM BICARBONATE 650 MG PO ×2 (08:43→20:33)
[2024-05-29] MEDS: PROCARDIA XL (EXTENDED RELEASE) 90 MG PO (08:44)
[2024-05-29] MEDS: FERRLECIT 110 MG IV (13:28)
--- NOTE | 2024-05-29 13:40 | W.PN.HOSP.TC ---
Today's Communication/Plan
-
iv iron
monitor hgb
cont abx
Assessment / Plan
Assessment / Plan
Physical Exam
General: Well Developed, Well Nourished and No Apparent Distress
HEENT: NormoCephalic, Moist mucous membranes and Atraumatic
Respiratory: Clear
Cardiac: S1/S2 and Regular Rhythm; No Murmur or Rub
GI: Soft, Non Tender, Non Distended and Normal Bowel Sounds; No Organomegaly
Rectal: Deferred by Provider
Musculoskeletal: No Clubbing, No Cyanosis and No Edema
Skin: No Rash
Neuro: Nonfocal/grossly intact
# Acute on chronic normocytic anemia likely due to anemia of chronic kidney disease
#Iron Deficiency Anemia
# Recent vaginal bleeding secondary to uterine fibroids status post uterine artery embolization
-No vaginal, urinary or rectal bleeding as per patient
-Hemoccult negative
�I spoke to gynecology, no further recommendations on a gynecological standpoint at this point
-2 units of blood - responded well
-ctm
-start IV Iron (d2) - will need renal f/u outpatient
# Recent fevers
#UTI, EColi
-Was noted to have necrotic fibroid per recent gynecology notes - new foci of gas within the lesion which may be postprocedural necrosis given recent uterine artery embolization, rather than superimposed infection.
-Start on ceftriaxone - most likely can treat for 10 days
# Intermittent loose stools
-Continue to monitor, no clinical evidence of C-Diff at this time
# Mild transaminitis possibly from recent antibiotic
-Continue to monitor
Asymptomatic umbilical hernia
Essential hypertension
-Continue nifedipine
Type 2 diabetes
-Not on treatment
CKD 4
-Renal function at baseline
-Continue sodium bicarbonate
Obesity
Anxiety/depression
-Continue sertraline
Hyperlipidemia
-Continue statin
DNR/DNI
DVT prophylaxis SCDs
Regular diet
Anticipated Discharge: Within 24 hours
Subjective/Interval History
-
Date of Service: May 29, 2024
No acute events, hemoglobin remained stable
Objective Data
-
Labs:
Laboratory Results
05/29/24
06:32
WBC 15.6 H
Hgb 7.5 L
Hct 22.5 L
Plt Count 258
Sodium 137
Potassium 4.4
Chloride 107
Carbon Dioxide 19 L
BUN 35 H
Creatinine 2.8 H
Glucose 83
Calcium 7.8 L
Total Bilirubin 0.5
AST 24
ALT 29
Alkaline Phosphatase 108
Vital Signs:
Vital Signs
Temp Pulse Resp BP Pulse Ox
98.1 F 83 18 169/63 99
05/29/24 07:52 05/29/24 07:52 05/29/24 07:52 05/29/24 07:52 05/29/24 07:52
I&O
05/28/24 05/29/24 05/30/24
06:59 06:59 06:59
Intake Total 500 / 500 110 / 110
Balance 500 / 500 110 / 110
Review of Systems
-
History Source: Patient
All other systems: Not reviewed unless documented
Data Reviewed
-
Diagnostic Radiology: Image personally visualized and interpreted and Report Reviewed by me
CT Scan: Image personally visualized and interpreted and Report Reviewed by me
Labs: Labs Reviewed by me
--- NOTE | 2024-05-29 14:28 | PN.CDI ---
CDI
- -
CDI:
Physician Documentation Request
Admit Date: 05/27/24 16:55
Dear Doctor Dyllan,
Please review the following and provide your response in the progress notes.
Clinical Indicators:
- 05/28 RN skin assessment indicates Stage 2 sacrum pressure injury, POA
- Patient morbidly obese with BMI 56
- per ER Physician 'morbid obesity with bedbound status'
Physician documentation of the type and location of wounds is required for compliant documentation. Based on the above clinical findings and your assessment, please provide the following in your progress note:
1. Location of the ulcer/wound, including laterality.
2. Type (etiology) of ulcer/wound:
- Diabetic ulcer
- Arterial (ischemic) ulcer
- Traumatic wound
- Venous stasis ulcer
- Pressure (decubitus) ulcer
- Non-healing surgical wound
- Other
- Unable to determine
Use of terms such as suspected, likely, concern for, or probable (associated with a specific diagnosis that is being evaluated, monitored, or treated as if it exists) are acceptable and can be coded in the inpatient setting, when documented at the
time of discharge.
Thank you,
Asad Ruiz RN
CDI Specialist
Please use your independent medical judgment in providing your response.
*Source: National Pressure Ulcer Advisory Panel (NPUAP)
[2024-05-29] MEDS: STERILE WATER FOR INJECTION 10 ML IV (15:19)
[2024-05-29] MEDS: ROCEPHIN 1000 MG IV (15:20)
[2024-05-29 15:37] VITALS: BP 128/61
[2024-05-29 16:37] VITALS: BP 128/61
[2024-05-29 22:05] VITALS: PULSE 91
[2024-05-29 23:00] VITALS: BP 146/53
[2024-05-30 06:44] LABS: Hematocrit 21.8 % (37.0-47.0); Hemoglobin 7.3 g/dL (12.0-16.0); Mean Corp Hgb Conc. 33.5 g/dL (33.0-37.0); Mean Corpuscular Hgb 28.7 pg (27.0-31.0); Mean Corpuscular Volume 85.8 fL (81.0-99.0); Platelet Count 248 10^3/uL (130-400); Red Blood Cell Count 2.54 10^6/uL (4.20-5.40); Red Cell Dist. Width 15.9 % (11.5-14.5); White Blood Cell Count 15.3 10^3/uL (4.8-10.8)
[2024-05-30 07:20] VITALS: BP 142/58
[2024-05-30 07:23] LABS: ALT (SGPT) 28 U/L (0-35); AST (SGOT) 26 U/L (14-36); Albumin 2.3 g/dl (3.5-5.0); Alkaline Phosphatase 110 U/L (38-126); Blood Urea Nitrogen 35 mg/dl (7-17); Calcium 7.8 mg/dl (8.4-10.2); Carbon Dioxide 18 mmol/L (22-30); Chloride 106 mmol/L (98-107); Estimated Creatinine Clearance 20 ml/min; Glucose 98 mg/dl (70-99); Sodium 136 mmol/L (135-145); Total Bilirubin 0.4 mg/dl (0.2-1.3); Total Protein 5.3 g/dl (6.3-8.2); eGFR 16.17
[2024-05-30] MEDS: LIPITOR 40 MG PO (08:40)
[2024-05-30] MEDS: THERAGRAN 1 TABLET PO (08:40)
[2024-05-30] MEDS: PROCARDIA XL (EXTENDED RELEASE) 90 MG PO (08:40)
[2024-05-30] MEDS: ZOLOFT 50 MG PO (08:40)
[2024-05-30] MEDS: VITAMIN D3 (cholecalciferol) 25 MCG PO (08:41)
[2024-05-30] MEDS: VISBIOME 1 CAP PO (08:41)
[2024-05-30] MEDS: SODIUM BICARBONATE 650 MG PO ×2 (08:41→21:55)
[2024-05-30] MEDS: FOLVITE 1 MG PO (08:42)
[2024-05-30] MEDS: ANCEF 10 IV ×2 (09:59→17:39)
--- NOTE | 2024-05-30 11:37 | CM ---
Patient with Dx anemia, UTI. Room air. CPAP. Receiving IV Abx, IV Iron. Per nursing: A/O.
Met with patient who resides with her son Rosales in a 2 story house with 3 THOMAS, and first floor bedroom/bath.
The patient was assisted with ADLs by her caregiver and is w/c bound and non-ambulatory.
She is taken into the bathroom every 2 weeks for a shower and stays in her w/c instead of transferrring to shower chair.
The patient is able to use a slide board to get OOB to her w/c.
She uses diapers only and does not use a commode or the toilet.
The patient has [facility] 6hrs/day 7 days/week from 7a-6p.
DME - hospital bed, air mattress, w/c, O2 4L, CPAP
No prior VN.
Prior [facility] in [facility].
PCP - Bernie Tovar who does home visits, gets labs drawn at home
Pharmacy - [facility] [address], [place]
CM continuing to follow for d/c needs.
Plan home with caregivers.
--- NOTE | 2024-05-30 13:05 | W.PN.HOSP.TC ---
Addendum entered and electronically signed by Austen Mijares MD 05/30/24 15:20:
Stage 2 sacrum pressure injury, POA
BMI 56 - morbidly obese
Original Note:
Today's Communication/Plan
-
dvt ppx
cont iv iron
fluconazole
switch to cefazolin
monitor hgb, wbc
Assessment / Plan
Assessment / Plan
Physical Exam
General: Well Developed, Well Nourished and No Apparent Distress
HEENT: NormoCephalic, Moist mucous membranes and Atraumatic
Respiratory: Clear
Cardiac: S1/S2 and Regular Rhythm; No Murmur or Rub
GI: Soft, Non Tender, Non Distended and Normal Bowel Sounds; No Organomegaly
Rectal: Deferred by Provider
Musculoskeletal: No Clubbing, No Cyanosis and No Edema
Skin: No Rash
Neuro: Nonfocal/grossly intact
# Acute on chronic normocytic anemia likely due to anemia of chronic kidney disease
#Iron Deficiency Anemia
# Recent vaginal bleeding secondary to uterine fibroids status post uterine artery embolization
-No vaginal, urinary or rectal bleeding as per patient
-Hemoccult negative
�I spoke to gynecology, no further recommendations on a gynecological standpoint at this point
-2 units of blood - responded well
-ctm
-start IV Iron (d3) - will need renal f/u outpatient
# Recent fevers
#UTI, EColi
-Was noted to have necrotic fibroid per recent gynecology notes - new foci of gas within the lesion which may be postprocedural necrosis given recent uterine artery embolization, rather than superimposed infection.
-switch to cefazolin - to complete 10 days of abx (ceftriaxone to cephalexin on DC)
-has white vaginal secretions/urine- suspect yeast - will give dose of flucanzole especially with persistent leukocytosis
# Mild transaminitis possibly from recent antibiotic
-Continue to monitor
-resolved
Asymptomatic umbilical hernia
Essential hypertension
-Continue nifedipine
Type 2 diabetes
-Not on treatment
CKD 4
-Renal function at baseline
-Continue sodium bicarbonate
Obesity
Anxiety/depression
-Continue sertraline
Hyperlipidemia
-Continue statin
DNR/DNI
DVT prophylaxis HSQ - monitor hgb
Regular diet
Anticipated Discharge: 24 - 48 hours
Subjective/Interval History
-
Date of Service: May 30, 2024
feels tired; hgb remains stable
Objective Data
-
Labs:
Laboratory Results
05/30/24
05:46
WBC 15.3 H
Hgb 7.3 L
Hct 21.8 L
Plt Count 248
Sodium 136
Potassium 4.0
Chloride 106
Carbon Dioxide 18 L
BUN 35 H
Creatinine 2.9 H
Glucose 98
Calcium 7.8 L
Total Bilirubin 0.4
AST 26
ALT 28
Alkaline Phosphatase 110
Vital Signs:
Vital Signs
Temp Pulse Resp BP Pulse Ox
97.8 F 79 22 142/58 100
05/30/24 07:20 05/30/24 07:20 05/30/24 07:20 05/30/24 07:20 05/30/24 08:00
I&O
05/29/24 05/30/24 05/31/24
06:59 06:59 06:59
Intake Total 110 / 110 480 / 480
Balance 110 / 110 480 / 480
Review of Systems
-
History Source: Patient
All other systems: Not reviewed unless documented
Physical Exam
-
General: No Apparent Distress, Comfortable and Morbidly Obese
HEENT: Normocephalic, Atraumatic and Moist Mucous Membranes
Respiratory: Clear to Auscultation; Negative Wheezes
Cardiac: Regular Rhythm and S1/S2
GI: Soft, Nontender, Nondistended and Normal Bowel Sounds
Musculoskeletal: No Edema
Skin: Warm and Dry; Negative Rash
Neuro: Awake, Alert, Oriented, AO x 3 and No Motor Deficits
Psych: Calm
Data Reviewed
-
Diagnostic Radiology: Image personally visualized and interpreted and Report Reviewed by me
CT Scan: Image personally visualized and interpreted and Report Reviewed by me
Labs: Labs Reviewed by me
[2024-05-30] MEDS: FERRLECIT 110 MG IV (14:14)
[2024-05-30] MEDS: DIFLUCAN 150 MG PO (14:14)
[2024-05-30 15:10] VITALS: BP 135/53
[2024-05-30] MEDS: HEPARIN 5000 UNITS SC ×2 (17:38→23:43)
[2024-05-30 22:04] VITALS: PULSE 99
[2024-05-30 23:51] VITALS: BP 153/64
[2024-05-31] MEDS: ANCEF 10 IV ×3 (01:37→17:21)
[2024-05-31 06:29] LABS: Hematocrit 21.6 % (37.0-47.0); Hemoglobin 7.2 g/dL (12.0-16.0); Mean Corp Hgb Conc. 33.3 g/dL (33.0-37.0); Mean Corpuscular Hgb 28.9 pg (27.0-31.0); Mean Corpuscular Volume 86.7 fL (81.0-99.0); Mean Platelet Volume 9.5 fL (7.4-10.4); Platelet Count 263 10^3/uL (130-400); Red Blood Cell Count 2.49 10^6/uL (4.20-5.40); Red Cell Dist. Width 15.9 % (11.5-14.5); White Blood Cell Count 13.8 10^3/uL (4.8-10.8)
[2024-05-31 06:50] LABS: ALT (SGPT) 18 U/L (0-35); AST (SGOT) 39 U/L (14-36); Albumin 2.3 g/dl (3.5-5.0); Alkaline Phosphatase 112 U/L (38-126); Blood Urea Nitrogen 37 mg/dl (7-17); Calcium 7.8 mg/dl (8.4-10.2); Carbon Dioxide 18 mmol/L (22-30); Chloride 106 mmol/L (98-107); Estimated Creatinine Clearance 21 ml/min; Glucose 94 mg/dl (70-99); Sodium 135 mmol/L (135-145); Total Bilirubin 0.3 mg/dl (0.2-1.3); Total Protein 5.3 g/dl (6.3-8.2); eGFR 16.87
[2024-05-31 07:10] VITALS: BP 146/69
[2024-05-31] MEDS: LIPITOR 40 MG PO (08:18)
[2024-05-31] MEDS: PROCARDIA XL (EXTENDED RELEASE) 90 MG PO (08:19)
[2024-05-31] MEDS: ZOLOFT 50 MG PO (08:19)
[2024-05-31] MEDS: VISBIOME 1 CAP PO (08:19)
[2024-05-31] MEDS: VITAMIN D3 (cholecalciferol) 25 MCG PO (08:19)
[2024-05-31] MEDS: THERAGRAN 1 TABLET PO (08:19)
[2024-05-31] MEDS: HEPARIN 5000 UNITS SC ×3 (08:19→23:31)
[2024-05-31] MEDS: FOLVITE 1 MG PO (08:19)
[2024-05-31] MEDS: SODIUM BICARBONATE 650 MG PO ×2 (08:19→21:57)
--- NOTE | 2024-05-31 13:13 | W.PN.HOSP.TC ---
Today's Communication/Plan
-
cont cefazolin
mrsa swab
G/C PCR
IV Iron
fluconazole again
Assessment / Plan
Assessment / Plan
Physical Exam
General: Well Developed, Well Nourished and No Apparent Distress
HEENT: NormoCephalic, Moist mucous membranes and Atraumatic
Respiratory: Clear
Cardiac: S1/S2 and Regular Rhythm; No Murmur or Rub
GI: Soft, Non Tender, Non Distended and Normal Bowel Sounds; No Organomegaly
Rectal: Deferred by Provider
Musculoskeletal: No Clubbing, No Cyanosis and No Edema
Skin: No Rash
Neuro: Nonfocal/grossly intact
# Acute on chronic normocytic anemia likely due to anemia of chronic kidney disease
#Iron Deficiency Anemia
# Recent vaginal bleeding secondary to uterine fibroids status post uterine artery embolization
-No vaginal, urinary or rectal bleeding as per patient
-Hemoccult negative
�I spoke to gynecology, no further recommendations on a gynecological standpoint at this point
-2 units of blood - responded well
-ctm
-start IV Iron (d4) - will need renal f/u outpatient - Will need 500mg to 1gm IV Iron outpatient
#Cellulitis
-cont to monitor on cefazolin
-if no improvement, can switch to vanc
# Recent fevers
#UTI, EColi
-Was noted to have necrotic fibroid per recent gynecology notes - new foci of gas within the lesion which may be postprocedural necrosis given recent uterine artery embolization, rather than superimposed infection.
-switch to cefazolin - to complete 10 days of abx (ceftriaxone to cephalexin on DC)
-has white vaginal secretions/urine- suspect yeast - will give another dose of flucanzole as still whitish secretions especially
-G/C PCR
# Mild transaminitis possibly from recent antibiotic
-Continue to monitor
-resolved
Asymptomatic umbilical hernia
Essential hypertension
-Continue nifedipine
Type 2 diabetes
-Not on treatment
CKD 4
-Renal function at baseline
-Continue sodium bicarbonate
Obesity
Anxiety/depression
-Continue sertraline
Hyperlipidemia
-Continue statin
DNR/DNI
DVT prophylaxis HSQ - monitor hgb
Regular diet
Anticipated Discharge: Within 24 hours
Subjective/Interval History
-
Date of Service: May 31, 2024
still having white vaginal secretions, now redness back on rle and traversing up the abdoomen
Objective Data
-
Labs:
Laboratory Results
05/31/24
05:39
WBC 13.8 H
Hgb 7.2 L
Hct 21.6 L
Plt Count 263
Sodium 135
Potassium 4.0
Chloride 106
Carbon Dioxide 18 L
BUN 37 H
Creatinine 2.8 H
Glucose 94
Calcium 7.8 L
Total Bilirubin 0.3
AST 39 H
ALT 18
Alkaline Phosphatase 112
Vital Signs:
Vital Signs
Temp Pulse Resp BP Pulse Ox
97.6 F 93 22 146/69 99
05/31/24 07:10 05/31/24 08:19 05/31/24 07:10 05/31/24 08:19 05/31/24 10:58
I&O
05/30/24 05/31/24 06/01/24
06:59 06:59 06:59
Intake Total 480 / 480 960 / 960
Balance 480 / 480 960 / 960
Review of Systems
-
History Source: Patient
All other systems: Not reviewed unless documented
Data Reviewed
-
Diagnostic Radiology: Image personally visualized and interpreted and Report Reviewed by me
CT Scan: Image personally visualized and interpreted and Report Reviewed by me
Labs: Labs Reviewed by me
[2024-05-31] MEDS: FERRLECIT 110 MG IV (14:06)
[2024-05-31 15:05] VITALS: BP 122/60
[2024-05-31] MEDS: DIFLUCAN 150 MG PO (15:54)
--- NOTE | 2024-05-31 16:23 | CM ---
Sheila has [facility] 6hrs/day 7 days/week from 7a-6p.
DME - hospital bed, air mattress, w/c, O2 4L, CPAP
No prior VN.
PCP - Bernie Tovar who does home visits, gets labs drawn at home
Pharmacy - [facility] [address], [place]
CM continuing to follow for d/c needs.
Plan home with caregivers.
[2024-05-31 23:22] VITALS: BP 123/60
[2024-05-31 23:24] VITALS: PULSE 108
[2024-06-01] MEDS: ANCEF 10 IV (01:52)
[2024-06-01 06:59] VITALS: BMI 56.6
[2024-06-01 07:30] VITALS: BP 122/56
[2024-06-01 08:23] LABS: Hematocrit 21.8 % (37.0-47.0); Hemoglobin 7.3 g/dL (12.0-16.0); Mean Corp Hgb Conc. 33.5 g/dL (33.0-37.0); Mean Corpuscular Hgb 28.7 pg (27.0-31.0); Mean Corpuscular Volume 85.8 fL (81.0-99.0); Mean Platelet Volume 9.9 fL (7.4-10.4); Platelet Count 265 10^3/uL (130-400); Red Blood Cell Count 2.54 10^6/uL (4.20-5.40); Red Cell Dist. Width 15.7 % (11.5-14.5); White Blood Cell Count 10.9 10^3/uL (4.8-10.8)
[2024-06-01 08:33] LABS: ALT (SGPT) < 10 U/L (0-35); AST (SGOT) 24 U/L (14-36); Albumin 2.4 g/dl (3.5-5.0); Alkaline Phosphatase 107 U/L (38-126); Blood Urea Nitrogen 36 mg/dl (7-17); Calcium 7.8 mg/dl (8.4-10.2); Carbon Dioxide 17 mmol/L (22-30); Chloride 104 mmol/L (98-107); Estimated Creatinine Clearance 20 ml/min; Glucose 90 mg/dl (70-99); Potassium 3.4 mmol/L (3.5-5.1); Sodium 134 mmol/L (135-145); Total Bilirubin 0.2 mg/dl (0.2-1.3); Total Protein 5.3 g/dl (6.3-8.2); eGFR 16.17
[2024-06-01] MEDS: PROCARDIA XL (EXTENDED RELEASE) 90 MG PO (10:17)
[2024-06-01] MEDS: FOLVITE 1 MG PO (10:17)
[2024-06-01] MEDS: HEPARIN 5000 UNITS SC ×3 (10:17→23:40)
[2024-06-01] MEDS: VISBIOME 1 CAP PO (10:18)
[2024-06-01] MEDS: THERAGRAN 1 TABLET PO (10:18)
[2024-06-01] MEDS: ZOLOFT 50 MG PO (10:18)
[2024-06-01] MEDS: LIPITOR 40 MG PO (10:18)
[2024-06-01] MEDS: VITAMIN D3 (cholecalciferol) 25 MCG PO (10:18)
[2024-06-01] MEDS: SODIUM BICARBONATE 650 MG PO ×2 (10:18→20:11)
[2024-06-01] MEDS: FLAGYL 500 MG PO ×2 (10:21→20:12)
--- NOTE | 2024-06-01 11:09 | PHA.VAN.IN ---
Assessment
- Assessment
Renal Function: Appears similar to baseline (Scr 2.8 04/19/24)
Maximum Temperature: 98.7 05/31/24 23:22
Minimum Temperature: 97.5 06/01/24 07:30
Concomitant Antimicrobials: Metronidazole PO
Plan
- Plan
Initial / Loading Dose: Vancomycin 2000mg IV x 1 today administration scheduled for 12:00
Maintenance Regimen: Dose by levels
Monitoring: Random Vancomycin level ordered for 06/02/24 at 06:00
Pharmacokinetics Vancomycin I
- -
Patient Age: 78
Patient Sex: Female
Vancomycin Day #: 1
Indication: Skin And Soft Tissue
Requesting Provider: Dr. Jerome Mijares
Pertinent Antimicrobial Allergies:
No antibiotic allergies
Height / Weight:
Height 5 ft
Actual Weight 131.542 kg
IBW in k.5
Adjusted BW in k.9
Pertinent Past Medical History: BMI~56, CKD 4, DM2, no improvment on Cefazolin
- Vital Signs / Lab Results
Temp Pulse Resp BP Pulse Ox
97.5 F 86 20 122/56 98
06/01/24 07:30 06/01/24 07:30 06/01/24 07:30 06/01/24 07:30 06/01/24 07:30
Lab Results - Hematology
05/30/24 05/31/24 06/01/24
05:46 05:39 07:02
WBC 15.3 H 13.8 H 10.9 H
Lab Results - Chemistry
05/30/24 05/31/24 06/01/24
05:46 05:39 07:02
BUN 35 H 37 H 36 H
Creatinine 2.9 H 2.8 H 2.9 H
Estimated Creat Clear 20 21 20
Albumin 2.3 L 2.3 L 2.4 L
Microbiology Results
05/31/24 15:30 Chlamydia trachomatis (PCR) - Final
Urine Neisseria gonorrhoeae (PCR) - Final
05/31/24 13:27 Nasal Screen MRSA (PCR) - Final
Nose MRSA not detected - performed by PCR methodology.
--- NOTE | 2024-06-01 11:16 | W.PN.HOSP.TC ---
Today's Communication/Plan
-
vancomycin for ?cellulitis v abx reaction
ciprofloxacin for uti
Flagyl for BV
k repletion
complete IV iron today
Assessment / Plan
Assessment / Plan
Physical Exam
General: Well Developed, Well Nourished and No Apparent Distress
HEENT: NormoCephalic, Moist mucous membranes and Atraumatic
Respiratory: Clear
Cardiac: S1/S2 and Regular Rhythm; No Murmur or Rub
GI: Soft, Non Tender, Non Distended and Normal Bowel Sounds; No Organomegaly
Rectal: Deferred by Provider
Musculoskeletal: No Clubbing, No Cyanosis and No Edema
Skin: No Rash
Neuro: Nonfocal/grossly intact
# Acute on chronic normocytic anemia likely due to anemia of chronic kidney disease
#Iron Deficiency Anemia
# Recent vaginal bleeding secondary to uterine fibroids status post uterine artery embolization
-No vaginal, urinary or rectal bleeding as per patient
-Hemoccult negative
�I spoke to gynecology, no further recommendations on a gynecological standpoint at this point
-2 units of blood - responded well
-ctm
-start IV Iron (d5) - will need renal f/u outpatient - Will need 500mg to 1gm IV Iron outpatient
#Cellulitis
-Unresolving on cefazolin
-switch to vancomycin
# Recent fevers
#UTI, EColi
-Was noted to have necrotic fibroid per recent gynecology notes - new foci of gas within the lesion which may be postprocedural necrosis given recent uterine artery embolization, rather than superimposed infection.
-switch to ciprofloxacin (would have continued on cefazolin/cephalexin but with continued rash will switch to cipro to rule out rash 2/2 to pcn) (D4)
#Continued thick white vaginal secretions - UA neg; no yeast
-suspect bacterial vaginosis
-start on metronidazole
#Hypokalemia
� Monitor and replete
#Hyponatremia
� Mild
� Continue to monitor
# Mild transaminitis possibly from recent antibiotic
-Continue to monitor
-resolved
Asymptomatic umbilical hernia
Essential hypertension
-Continue nifedipine
Type 2 diabetes
-Not on treatment
CKD 4
-Renal function at baseline
-Continue sodium bicarbonate
Obesity
Anxiety/depression
-Continue sertraline
Hyperlipidemia
-Continue statin
DNR/DNI
DVT prophylaxis HSQ - monitor hgb
Regular diet
Anticipated Discharge: Within 24 hours
Subjective/Interval History
-
Date of Service: June 01, 2024
redness from the right leg, up to the right abdomen and right chest
Objective Data
-
Labs:
Laboratory Results
06/01/24
07:02
WBC 10.9 H
Hgb 7.3 L
Hct 21.8 L
Plt Count 265
Sodium 134 L
Potassium 3.4 L
Chloride 104
Carbon Dioxide 17 L
BUN 36 H
Creatinine 2.9 H
Glucose 90
Calcium 7.8 L
Total Bilirubin 0.2
AST 24
ALT < 10
Alkaline Phosphatase 107
Vital Signs:
Vital Signs
Temp Pulse Resp BP Pulse Ox
97.5 F 86 20 122/56 98
06/01/24 07:30 06/01/24 07:30 06/01/24 07:30 06/01/24 07:30 06/01/24 07:30
I&O
05/31/24 06/01/24 06/02/24
06:59 06:59 06:59
Intake Total 960 / 960 1070 / 1070
Balance 960 / 960 1070 / 1070
Review of Systems
-
History Source: Patient
All other systems: Not reviewed unless documented
Data Reviewed
-
Diagnostic Radiology: Image personally visualized and interpreted and Report Reviewed by me
CT Scan: Image personally visualized and interpreted and Report Reviewed by me
Labs: Labs Reviewed by me
[2024-06-01] MEDS: KCL ELIXIR 40 MEQ PO (11:52)
[2024-06-01] MEDS: VANCOCIN 540 MG IV (11:52)
[2024-06-01] MEDS: CIPRO 500 MG PO (11:52)
[2024-06-01] MEDS: FLUSH (NSS) 2 FLUSH IV (11:53)
[2024-06-01] MEDS: FERRLECIT 110 MG IV (14:14)
[2024-06-01] MEDS: FLUSH (NSS) 1 FLUSH IV (14:15)
[2024-06-01 15:11] VITALS: BP 109/57
[2024-06-01 23:19] VITALS: PULSE 61
[2024-06-01 23:23] VITALS: BP 142/60
[2024-06-02 06:00] VITALS: BMI 57.0
[2024-06-02 08:13] VITALS: BP 131/59
[2024-06-02 08:14] LABS: ALT (SGPT) < 10 U/L (0-35); AST (SGOT) 27 U/L (14-36); Albumin 2.4 g/dl (3.5-5.0); Alkaline Phosphatase 102 U/L (38-126); Blood Urea Nitrogen 36 mg/dl (7-17); Calcium 8.1 mg/dl (8.4-10.2); Carbon Dioxide 15 mmol/L (22-30); Chloride 108 mmol/L (98-107); Estimated Creatinine Clearance 21 ml/min; Glucose 83 mg/dl (70-99); Potassium 3.9 mmol/L (3.5-5.1); Sodium 138 mmol/L (135-145); Total Bilirubin 0.2 mg/dl (0.2-1.3); Total Protein 5.5 g/dl (6.3-8.2); eGFR 16.17
[2024-06-02 08:21] LABS: Hematocrit 22.4 % (37.0-47.0); Hemoglobin 7.4 g/dL (12.0-16.0); Mean Corpuscular Hgb 29.2 pg (27.0-31.0); Mean Corpuscular Volume 88.5 fL (81.0-99.0); Mean Platelet Volume 10.1 fL (7.4-10.4); Platelet Count 238 10^3/uL (130-400); Red Blood Cell Count 2.53 10^6/uL (4.20-5.40); Red Cell Dist. Width 15.8 % (11.5-14.5); White Blood Cell Count 10.6 10^3/uL (4.8-10.8)
--- NOTE | 2024-06-02 10:23 | PHA.VAN.FU ---
Addendum entered and electronically signed by Jeffrey Castaneda, [facility] 06/02/24 10:44:
Dr Mijares would like patient to stop further vancomycin. Dose scheduled for today canceled.
Original Note:
Vancomycin Assessment / Plan
- Assessment
Renal Function: Stable (2.9>2.9)
WBC's are: Trending Down (10.9>10.6)
In the past 24 hrs, patient has been: Afebrile
Concomitant Antimicrobials: Ciprofloxacin, Metronidazole
- Assessment - Therapeutic Drug Monitoring
Random Level: 15 drawn ~19.5 hrs after vancomycin 2000mg loading dose given
- Dosing Plan
Dosing by Level: Re-dose today (Vancomycin 1500mg x 1 dose (~11mg/kg))
- Monitoring Plan
Random Level: Ordered for 06/03/24 at 06:00
- Follow Up
Pharmacy will continue to follow.
Vancomycin Follow UP
- -
Patient Age: 78
Patient Sex: Female
Vancomycin Day #: 2
Indication: Skin And Soft Tissue
Requesting Provider: Dr. Jerome Mijares
Pertinent Antimicrobial Allergies:
No antibiotic allergies
Height / Weight:
Height 5 ft
Actual Weight 132.449 kg
IBW in k.5
Adjusted BW in k.9
Pertinent Past Medical History: BMI 57, CKD 4, DM2, no improvment on Cefazolin
- Vital Signs / Lab Results
Temp Pulse Resp BP Pulse Ox
97.8 F 79 20 131/59 100
06/02/24 08:13 06/02/24 08:13 06/02/24 08:13 06/02/24 08:13 06/02/24 08:13
Lab Results - Hematology
05/31/24 06/01/24 06/02/24
05:39 07:02 07:40
WBC 13.8 H 10.9 H 10.6
Lab Results - Chemistry
05/31/24 06/01/24 06/02/24
05:39 07:02 07:40
BUN 37 H 36 H 36 H
Creatinine 2.8 H 2.9 H 2.9 H
Estimated Creat Clear 21 20 21
Albumin 2.3 L 2.4 L 2.4 L
Microbiology Results
06/01/24 23:25 C. difficile GDH Antigen & Toxins - Final
Feces/Stool Negative for toxigenic C.difficile
05/31/24 15:30 Chlamydia trachomatis (PCR) - Final
Urine Neisseria gonorrhoeae (PCR) - Final
05/31/24 13:27 Nasal Screen MRSA (PCR) - Final
Nose MRSA not detected - performed by PCR methodology.
Therapeutic Drug Monitoring
Random Vancomycin 15.0 ug/ml 06/02/24 07:40
[2024-06-02] MEDS: PROCARDIA XL (EXTENDED RELEASE) 90 MG PO (10:33)
[2024-06-02] MEDS: THERAGRAN 1 TABLET PO (10:33)
[2024-06-02] MEDS: CIPRO 500 MG PO (10:33)
[2024-06-02] MEDS: SODIUM BICARBONATE 650 MG PO ×3 (10:33→21:00)
[2024-06-02] MEDS: VISBIOME 1 CAP PO (10:33)
[2024-06-02] MEDS: ZOLOFT 50 MG PO (10:34)
[2024-06-02] MEDS: FOLVITE 1 MG PO (10:34)
[2024-06-02] MEDS: HEPARIN 5000 UNITS SC ×3 (10:34→23:34)
[2024-06-02] MEDS: VITAMIN D3 (cholecalciferol) 25 MCG PO (10:34)
[2024-06-02] MEDS: FLAGYL 500 MG PO ×2 (10:34→20:52)
[2024-06-02] MEDS: FLUSH (NSS) 1 FLUSH IV (10:35)
[2024-06-02] MEDS: LIPITOR 40 MG PO (10:39)
--- NOTE | 2024-06-02 11:51 | W.PN.HOSP.TC ---
Today's Communication/Plan
-
dc vanc and monitor skin around body fat distribution dependent on the bed
Cont cipro for uti
cont flagyl for bacterial vagnosis
Switch sodium bicarb to TID
Assessment / Plan
Assessment / Plan
Physical Exam
General: Well Developed, Well Nourished and No Apparent Distress
HEENT: NormoCephalic, Moist mucous membranes and Atraumatic
Respiratory: Clear
Cardiac: S1/S2 and Regular Rhythm; No Murmur or Rub
GI: Soft, Non Tender, Non Distended and Normal Bowel Sounds; No Organomegaly
Rectal: Deferred by Provider
Musculoskeletal: No Clubbing, No Cyanosis and No Edema
Skin: No Rash
Neuro: Nonfocal/grossly intact
# Acute on chronic normocytic anemia likely due to anemia of chronic kidney disease
#Iron Deficiency Anemia
# Recent vaginal bleeding secondary to uterine fibroids status post uterine artery embolization
-No vaginal, urinary or rectal bleeding as per patient
-Hemoccult negative
�I spoke to gynecology, no further recommendations on a gynecological standpoint at this point
-2 units of blood - responded well
-ctm
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
#?Cellulitis
-erythema on both sides of her body R>L; leg to the chest especially on the right side
-suspect 2/2 to IV iron v abx v possible developing pressure ulcers with body fat distribution
-monitor now that just on cipro, flagyl
# Recent fevers, resolved
#UTI, EColi
-Was noted to have necrotic fibroid per recent gynecology notes - new foci of gas within the lesion which may be postprocedural necrosis given recent uterine artery embolization, rather than superimposed infection.
-switch to ciprofloxacin (would have continued on cefazolin/cephalexin but with continued ?rash will switch to cipro to rule out rash 2/2 to pcn/cephalosporin) (D5)
#Continued thick white vaginal secretions - UA neg; no yeast
-suspect bacterial vaginosis
-start on metronidazole (d2)
#Hypokalemia
� Monitor and replete
#Hyponatremia
� Mild
� Continue to monitor
# Mild transaminitis possibly from recent antibiotic
-Continue to monitor
-resolved
Asymptomatic umbilical hernia
Essential hypertension
-Continue nifedipine
Type 2 diabetes
-Not on treatment
CKD 4
-Renal function at baseline
-Continue sodium bicarbonate - switch to TID
Obesity
Anxiety/depression
-Continue sertraline
Hyperlipidemia
-Continue statin
DNR/DNI
DVT prophylaxis HSQ - monitor hgb
Regular diet
Anticipated Discharge: 24 - 48 hours
Subjective/Interval History
-
Date of Service: June 02, 2024
Erythema on both sides
Objective Data
-
Labs:
Laboratory Results
06/02/24
07:40
WBC 10.6
Hgb 7.4 L
Hct 22.4 L
Plt Count 238
Sodium 138
Potassium 3.9
Chloride 108 H
Carbon Dioxide 15 L
BUN 36 H
Creatinine 2.9 H
Glucose 83
Calcium 8.1 L
Total Bilirubin 0.2
AST 27
ALT < 10
Alkaline Phosphatase 102
Vital Signs:
Vital Signs
Temp Pulse Resp BP Pulse Ox
97.8 F 79 20 131/59 100
06/02/24 08:13 06/02/24 08:13 06/02/24 08:13 06/02/24 08:13 06/02/24 08:13
I&O
06/01/24 06/02/24 06/03/24
06:59 06:59 06:59
Intake Total 0 / 1070 1800 / 1799
Balance 1070 / 1070 1800 / 1800
Review of Systems
-
History Source: Patient
All other systems: Not reviewed unless documented
Physical Exam
-
General: No Apparent Distress, Comfortable and Morbidly Obese
HEENT: Normocephalic, Atraumatic and Moist Mucous Membranes
Respiratory: Clear to Auscultation; Negative Wheezes
Cardiac: Regular Rhythm and S1/S2
GI: Soft, Nontender, Nondistended and Normal Bowel Sounds
Musculoskeletal: No Edema
Skin: Warm and Dry; Negative Rash
Neuro: Awake, Alert, Oriented, AO x 3 and No Motor Deficits
Psych: Calm
Data Reviewed
-
Diagnostic Radiology: Image personally visualized and interpreted and Report Reviewed by me
CT Scan: Image personally visualized and interpreted and Report Reviewed by me
Labs: Labs Reviewed by me
[2024-06-02 12:42] LABS: COVID-19 Antigen Negative (Negative)
[2024-06-02 16:17] VITALS: BP 122/63
[2024-06-02 22:17] VITALS: PULSE 91
[2024-06-02 23:53] VITALS: BP 127/61
[2024-06-03 06:00] VITALS: BMI 56.9
[2024-06-03 07:20] VITALS: BP 130/54
[2024-06-03] MEDS: LIPITOR 40 MG PO (08:30)
[2024-06-03] MEDS: VITAMIN D3 (cholecalciferol) 25 MCG PO (08:30)
[2024-06-03] MEDS: FLAGYL 500 MG PO ×2 (08:30→21:04)
[2024-06-03] MEDS: PROCARDIA XL (EXTENDED RELEASE) 90 MG PO (08:30)
[2024-06-03] MEDS: ZOLOFT 50 MG PO (08:30)
[2024-06-03] MEDS: VISBIOME 1 CAP PO (08:30)
[2024-06-03] MEDS: CIPRO 500 MG PO (08:30)
[2024-06-03] MEDS: SODIUM BICARBONATE 650 MG PO ×3 (08:31→21:04)
[2024-06-03] MEDS: THERAGRAN 1 TABLET PO (08:31)
[2024-06-03] MEDS: HEPARIN 5000 UNITS SC ×3 (08:31→23:32)
[2024-06-03] MEDS: FOLVITE 1 MG PO (08:31)
[2024-06-03] MEDS: FLUSH (NSS) 1 FLUSH IV (08:32)
[2024-06-03 08:40] LABS: Hematocrit 22.8 % (37.0-47.0); Hemoglobin 7.7 g/dL (12.0-16.0); Mean Corp Hgb Conc. 33.8 g/dL (33.0-37.0); Mean Corpuscular Hgb 29.7 pg (27.0-31.0); Mean Platelet Volume 9.4 fL (7.4-10.4); Platelet Count 248 10^3/uL (130-400); Red Blood Cell Count 2.59 10^6/uL (4.20-5.40); Red Cell Dist. Width 15.9 % (11.5-14.5); White Blood Cell Count 11.3 10^3/uL (4.8-10.8)
[2024-06-03 09:13] LABS: ALT (SGPT) < 10 U/L (0-35); AST (SGOT) 26 U/L (14-36); Albumin 2.4 g/dl (3.5-5.0); Alkaline Phosphatase 118 U/L (38-126); Blood Urea Nitrogen 37 mg/dl (7-17); Carbon Dioxide 16 mmol/L (22-30); Chloride 107 mmol/L (98-107); Estimated Creatinine Clearance 21 ml/min; Glucose 81 mg/dl (70-99); Potassium 3.8 mmol/L (3.5-5.1); Sodium 135 mmol/L (135-145); Total Bilirubin 0.2 mg/dl (0.2-1.3); Total Protein 5.4 g/dl (6.3-8.2); eGFR 16.87
--- NOTE | 2024-06-03 10:03 | W.PN.HOSP.TC ---
Today's Communication/Plan
-
dc planning
Assessment / Plan
Assessment / Plan
Physical Exam
General: Well Developed, Well Nourished and No Apparent Distress
HEENT: Normocephalic, Moist mucous membranes and Atraumatic
Respiratory: Clear
Cardiac: S1/S2 and Regular Rhythm; No Murmur or Rub
GI: Soft, Non Tender, Non Distended and Normal Bowel Sounds; No Organomegaly
Rectal: Deferred by Provider
Musculoskeletal: No Clubbing, No Cyanosis and No Edema
Skin: No Rash
Neuro: Nonfocal/grossly intact
# Acute on chronic normocytic anemia likely due to anemia of chronic kidney disease with chronic blood loss anemia
#Iron Deficiency Anemia
# Recent vaginal bleeding secondary to uterine fibroids status post uterine artery embolization
-No vaginal, urinary or rectal bleeding as per patient
-Hemoccult negative
� Dr Garcia spoke to gynecology, no further recommendations on a gynecological standpoint at this point
-2 units of blood - responded well
-ctm
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
# Erythema mostly on right side of her body seems mostly on dependent side where she tends to lie on. Possible drug reaction. She denies itching . She denies tenderness on red spots.
-suspect 2/2 to IV iron v abx v possible developing pressure ulcers with body fat distribution
- Palpable red skin nodules noted on right arm, per pt, present for more than 2 years.
# Recent fevers, resolved
#UTI, EColi
-Was noted to have necrotic fibroid per recent gynecology notes - new foci of gas within the lesion which may be postprocedural necrosis given recent uterine artery embolization, rather than superimposed infection.
-switch to ciprofloxacin (would have continued on cefazolin/cephalexin but with continued ?rash will switch to cipro to rule out rash 2/2 to pcn/cephalosporin)
#Continued thick white vaginal secretions - UA neg; no yeast
-suspect bacterial vaginosis
#Hypokalemia
Resolved.
#Hyponatremia
� Mild
- no confusion.
# Mild transaminitis possibly from recent antibiotic
-Continue to monitor
-resolved
Asymptomatic umbilical hernia
Essential hypertension
-Continue nifedipine
Type 2 diabetes
-Not on treatment
CKD 4
-Renal function at baseline
-Continue sodium bicarbonate - switch to TID
IVETTE, on C pap
- Morbid Obesity. BMI 56
Anxiety/depression
-Continue sertraline
Hyperlipidemia
-Continue statin
DNR/DNI
DVT prophylaxis HSQ - monitor hgb
Regular diet
Total time spent to see the patient, examine the patient on the floor, review data and lab results, discuss the treatment plan with the patient, nursing staff around 55 minutes
Anticipated Discharge: Within 24 hours
Subjective/Interval History
-
Date of Service: June 03, 2024
No itching
No chest pain or sob
No fevers
Objective Data
-
Labs:
Laboratory Results
06/03/24
08:15
WBC 11.3 H
Hgb 7.7 L
Hct 22.8 L
Plt Count 248
Sodium 135
Potassium 3.8
Chloride 107
Carbon Dioxide 16 L
BUN 37 H
Creatinine 2.8 H
Glucose 81
Calcium 8.0 L
Total Bilirubin 0.2
AST 26
ALT < 10
Alkaline Phosphatase 118
Vital Signs:
Vital Signs
Temp Pulse Resp BP Pulse Ox
98.2 F 82 24 130/54 100
06/03/24 07:20 06/03/24 07:20 06/03/24 07:20 06/03/24 07:20 06/03/24 07:20
I&O
06/02/24 06/03/24 06/04/24
06:59 06:59 06:59
Intake Total 1800 / 1800 720 / 720
Balance 1800 / 1800 720 / 720
[2024-06-03 15:20] VITALS: BP 144/65
[2024-06-03 22:07] VITALS: PULSE 92
[2024-06-03 23:40] VITALS: BP 97/50
[2024-06-04 06:49] VITALS: BMI 57.6
[2024-06-04 07:20] VITALS: BP 137/56
[2024-06-04 08:15] LABS: Hematocrit 21.7 % (37.0-47.0); Hemoglobin 7.2 g/dL (12.0-16.0); Mean Corp Hgb Conc. 33.2 g/dL (33.0-37.0); Mean Corpuscular Hgb 29.6 pg (27.0-31.0); Mean Corpuscular Volume 89.3 fL (81.0-99.0); Mean Platelet Volume 9.9 fL (7.4-10.4); Platelet Count 255 10^3/uL (130-400); Red Blood Cell Count 2.43 10^6/uL (4.20-5.40); White Blood Cell Count 12.3 10^3/uL (4.8-10.8)
[2024-06-04 08:22] LABS: ALT (SGPT) < 10 U/L (0-35); AST (SGOT) 21 U/L (14-36); Albumin 2.3 g/dl (3.5-5.0); Alkaline Phosphatase 118 U/L (38-126); Blood Urea Nitrogen 35 mg/dl (7-17); Calcium 7.6 mg/dl (8.4-10.2); Carbon Dioxide 16 mmol/L (22-30); Chloride 107 mmol/L (98-107); Estimated Creatinine Clearance 22 ml/min; Glucose 80 mg/dl (70-99); Potassium 3.6 mmol/L (3.5-5.1); Sodium 136 mmol/L (135-145); Total Bilirubin 0.2 mg/dl (0.2-1.3); Total Protein 5.3 g/dl (6.3-8.2); eGFR 17.62
[2024-06-04] MEDS: LIPITOR 40 MG PO (09:16)
[2024-06-04] MEDS: PROCARDIA XL (EXTENDED RELEASE) 90 MG PO (09:16)
[2024-06-04] MEDS: ZOLOFT 50 MG PO (09:17)
[2024-06-04] MEDS: FLAGYL 500 MG PO ×2 (09:17→21:09)
[2024-06-04] MEDS: THERAGRAN 1 TABLET PO (09:17)
[2024-06-04] MEDS: FOLVITE 1 MG PO (09:17)
[2024-06-04] MEDS: HEPARIN 5000 UNITS SC ×3 (09:17→23:01)
[2024-06-04] MEDS: SODIUM BICARBONATE 650 MG PO ×3 (09:17→21:09)
[2024-06-04] MEDS: CIPRO 500 MG PO (09:17)
[2024-06-04] MEDS: VISBIOME 1 CAP PO (09:17)
[2024-06-04] MEDS: VITAMIN D3 (cholecalciferol) 25 MCG PO (09:17)
--- NOTE | 2024-06-04 10:47 | W.PN.HOSP.TC ---
Today's Communication/Plan
-
PT/OT
DC in am
Assessment / Plan
Assessment / Plan
Physical Exam
General: Well Developed, Well Nourished and No Apparent Distress
HEENT: Normocephalic, Moist mucous membranes and Atraumatic
Respiratory: Clear
Cardiac: S1/S2 and Regular Rhythm; No Murmur or Rub
GI: Soft, Non Tender, Non Distended and Normal Bowel Sounds; No Organomegaly
Rectal: Deferred by Provider
Musculoskeletal: No Clubbing, No Cyanosis and No Edema
Skin: No Rash
Neuro: Nonfocal/grossly intact
# Acute on chronic normocytic anemia likely due to anemia of chronic kidney disease with chronic blood loss anemia
#Iron Deficiency Anemia
# Recent vaginal bleeding secondary to uterine fibroids status post uterine artery embolization
-No vaginal, urinary or rectal bleeding as per patient
-Hemoccult negative
� Dr Garcia spoke to gynecology, no further recommendations on a gynecological standpoint at this point
-2 units of blood - responded well
-ctm
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
# Erythema mostly on right side of her body seems mostly on dependent side where she tends to lie on. Possible drug reaction. She denies itching . She denies tenderness on red spots.
-suspect 2/2 to IV iron v abx v possible developing pressure ulcers with body fat distribution
- Palpable red skin nodules noted on right arm, per pt, present for more than 2 years.
# Recent fevers, resolved
#UTI, EColi
-Was noted to have necrotic fibroid per recent gynecology notes - new foci of gas within the lesion which may be postprocedural necrosis given recent uterine artery embolization, rather than superimposed infection.
-switch to ciprofloxacin (would have continued on cefazolin/cephalexin but with continued ?rash will switch to cipro to rule out rash 2/2 to pcn/cephalosporin)
#Continued thick white vaginal secretions - UA neg; no yeast
-suspect bacterial vaginosis
#Hypokalemia
Resolved.
#Hyponatremia
� Mild
- no confusion.
# Mild transaminitis possibly from recent antibiotic
-Continue to monitor
-resolved
Asymptomatic umbilical hernia
Essential hypertension
-Continue nifedipine
Type 2 diabetes
-Not on treatment
CKD 4
-Renal function at baseline
-Continue sodium bicarbonate - switch to TID
IVETTE, on C pap
- Morbid Obesity. BMI 56
Anxiety/depression
-Continue sertraline
Hyperlipidemia
-Continue statin
DNR/DNI
DVT prophylaxis HSQ - monitor hgb
Regular diet
Total time spent to see the patient, examine the patient on the floor, review data and lab results, discuss the treatment plan with the patient, nursing staff around 45 minutes
Anticipated Discharge: Within 24 hours
Subjective/Interval History
-
Date of Service: June 04, 2024
No chest pain
No sob
Objective Data
-
Labs:
Laboratory Results
06/04/24
07:07
WBC 12.3 H
Hgb 7.2 L
Hct 21.7 L
Plt Count 255
Sodium 136
Potassium 3.6
Chloride 107
Carbon Dioxide 16 L
BUN 35 H
Creatinine 2.7 H
Glucose 80
Calcium 7.6 L
Total Bilirubin 0.2
AST 21
ALT < 10
Alkaline Phosphatase 118
Vital Signs:
Vital Signs
Temp Pulse Resp BP Pulse Ox
98.2 F 83 24 137/56 100
06/04/24 07:20 06/04/24 09:16 06/04/24 07:20 06/04/24 09:16 06/04/24 07:20
I&O
06/03/24 06/04/24 06/05/24
06:59 06:59 06:59
Intake Total 720 / 720 240 / 240
Balance 720 / 720 240 / 240
--- NOTE | 2024-06-04 15:01 | CM ---
No change in plan:
Sheila has [facility] 6hrs/day 7 days/week from 7a-6p.
DME - hospital bed, air mattress, w/c, O2 4L, CPAP
No prior VN.
PCP - Bernie Tovar who does home visits, gets labs drawn at home
Pharmacy - [facility] [address], [place]
CM continuing to follow for d/c needs.
Plan home with caregivers.
[2024-06-04 15:10] VITALS: BP 145/64
--- NOTE | 2024-06-04 15:54 | PTOTSP ---
chart reviewed, spoke with pt. pt reports no need for OT intervention, as pt has caregiver to assist with ADLs, IADLs. pt reports she does not get OOB often and uses a slide board. pt completes exercises in bed. no acute OT needs identified at this
time, agreeable to therapy signing off.
--- NOTE | 2024-06-04 17:15 | CM ---
LAURA met with Sheila today; she is very cheerful; plans to return home with caregiver and her brother at discharge.
Plan: Discharge to home; no new needs identified.
[2024-06-04 22:12] VITALS: PULSE 91
[2024-06-04 22:40] VITALS: BP 150/66
[2024-06-05] VITALS (9 sets, daily range): BP systolic 108–140; BP diastolic 57–69
[2024-06-05 06:58] LABS: ALT (SGPT) < 10 U/L (0-35); AST (SGOT) 18 U/L (14-36); Albumin 2.2 g/dl (3.5-5.0); Alkaline Phosphatase 122 U/L (38-126); Blood Urea Nitrogen 36 mg/dl (7-17); Calcium 7.5 mg/dl (8.4-10.2); Carbon Dioxide 17 mmol/L (22-30); Chloride 110 mmol/L (98-107); Estimated Creatinine Clearance 22 ml/min; Glucose 89 mg/dl (70-99); Potassium 3.7 mmol/L (3.5-5.1); Sodium 136 mmol/L (135-145); Total Bilirubin 0.2 mg/dl (0.2-1.3); Total Protein 5.1 g/dl (6.3-8.2); eGFR 17.62
[2024-06-05] MEDS: FLAGYL 500 MG PO (08:05)
[2024-06-05] MEDS: THERAGRAN 1 TABLET PO (08:05)
[2024-06-05] MEDS: VISBIOME 1 CAP PO (08:05)
[2024-06-05] MEDS: FOLVITE 1 MG PO (08:05)
[2024-06-05] MEDS: CIPRO 500 MG PO (08:05)
[2024-06-05 08:06] LABS: Hematocrit 19.6 % (37.0-47.0); Hemoglobin 6.6 g/dL (12.0-16.0); Mean Corp Hgb Conc. 32.4 g/dL (33.0-37.0); Mean Corpuscular Hgb 29.1 pg (27.0-31.0); Mean Corpuscular Volume 89.9 fL (81.0-99.0); Mean Platelet Volume 10.2 fL (7.4-10.4); Platelet Count 207 10^3/uL (130-400); Red Blood Cell Count 2.27 10^6/uL (4.20-5.40); Red Cell Dist. Width 16.5 % (11.5-14.5); White Blood Cell Count 12.4 10^3/uL (4.8-10.8)
[2024-06-05] MEDS: SODIUM BICARBONATE 650 MG PO ×3 (08:06→21:16)
[2024-06-05] MEDS: VITAMIN D3 (cholecalciferol) 25 MCG PO (08:06)
[2024-06-05] MEDS: LIPITOR 40 MG PO (08:07)
[2024-06-05] MEDS: ZOLOFT 50 MG PO (08:07)
[2024-06-05] MEDS: PROCARDIA XL (EXTENDED RELEASE) 90 MG PO (08:08)
[2024-06-05] MEDS: HEPARIN 5000 UNITS SC ×2 (08:08→16:50)
--- NOTE | 2024-06-05 09:10 | W.PN.HOSP.TC ---
Today's Communication/Plan
-
Blood transfusion, 2 units
Stop Abx , finished course
Assessment / Plan
Assessment / Plan
Physical Exam
General: Well Developed, Well Nourished and No Apparent Distress
HEENT: Normocephalic, Moist mucous membranes and Atraumatic
Respiratory: Clear
Cardiac: S1/S2 and Regular Rhythm; No Murmur or Rub
GI: Soft, Non Tender, Non Distended and Normal Bowel Sounds; No Organomegaly
Rectal: Deferred by Provider
Musculoskeletal: No Clubbing, No Cyanosis and No Edema
Skin: No Rash
Neuro: Nonfocal/grossly intact
# Acute on chronic normocytic anemia likely due to anemia of chronic kidney disease with chronic blood loss anemia
#Iron Deficiency Anemia
# Recent vaginal bleeding secondary to uterine fibroids status post uterine artery embolization
-No vaginal, urinary or rectal bleeding as per patient
-Hemoccult negative
� Dr Garcia spoke to gynecology, no further recommendations on a gynecological standpoint at this point
-2 units of blood - and will give another two
-ctm
-Completed IV Iron (d5) - will need renal f/u outpatient - Will need 500mg to 1gm IV Iron outpatient; she wants to see her own medical interpreter.
# Erythema mostly on right side of her body seems mostly on dependent side where she tends to lie on. Possible drug reaction. She denies itching . She denies tenderness on red spots.
-suspect 2/2 to IV iron vs abx vs possible developing pressure ulcers with body fat distribution
- Palpable red skin nodules noted on right arm, per pt, present for more than 2 years.
# Recent fevers, resolved
#UTI, EColi
-Was noted to have necrotic fibroid per recent gynecology notes - new foci of gas within the lesion which may be postprocedural necrosis given recent uterine artery embolization, rather than superimposed infection.
-switch to ciprofloxacin (would have continued on cefazolin/cephalexin but with continued ?rash
AB changed to to cipro to rule out rash 2/2 to pcn/cephalosporin). She received total of 9 days of ABx, will stop further Abx
#Continued thick white vaginal secretions - UA neg; no yeast
-suspect bacterial vaginosis
#Hypokalemia
Resolved.
#Hyponatremia
� Mild
- no confusion.
# Mild transaminitis possibly from recent antibiotic
-Continue to monitor
-resolved
Asymptomatic umbilical hernia
Essential hypertension
-Continue nifedipine
Type 2 diabetes
-Not on treatment
CKD 4
-Renal function at baseline
-Continue sodium bicarbonate - switch to TID
IVETTE, on C pap
- Morbid Obesity. BMI 56
Anxiety/depression
-Continue sertraline
Hyperlipidemia
-Continue statin
DNR/DNI
DVT prophylaxis HSQ - monitor hgb
Regular diet
Total time spent to see the patient, examine the patient on the floor, review data and lab results, discuss the treatment plan with the patient, nursing staff around 57 minutes
Anticipated Discharge: Within 24 hours
Subjective/Interval History
-
Date of Service: June 05, 2024
No chest pain
No abd pain
No sob
Objective Data
-
Labs:
Laboratory Results
06/05/24
05:24
WBC 12.4 H
Hgb 6.6 L*
Hct 19.6 L*
Plt Count 207
Sodium 136
Potassium 3.7
Chloride 110 H
Carbon Dioxide 17 L
BUN 36 H
Creatinine 2.7 H
Glucose 89
Calcium 7.5 L
Total Bilirubin 0.2
AST 18
ALT < 10
Alkaline Phosphatase 122
Vital Signs:
Vital Signs
Temp Pulse Resp BP Pulse Ox
99.1 F 91 18 117/66 100
06/05/24 06:54 06/05/24 06:54 06/05/24 06:54 06/05/24 06:54 06/05/24 06:54
I&O
06/04/24 06/05/24 06/06/24
06:59 06:59 06:59
Intake Total 240 / 240 920 / 920
Balance 240 / 240 920 / 920
--- NOTE | 2024-06-05 19:21 | PTCARENOTE ---
2 Units of PRBCs infused after 15 minutes no apparent sign of a transfusion reaction, vitals remained stable. Plan of care continues.
[2024-06-06] MEDS: HEPARIN 5000 UNITS SC ×3 (01:39→16:25)
[2024-06-06 06:53] VITALS: BP 148/66
[2024-06-06 07:31] LABS: Blood Urea Nitrogen 40 mg/dl (7-17); Calcium 7.8 mg/dl (8.4-10.2); Carbon Dioxide 14 mmol/L (22-30); Chloride 108 mmol/L (98-107); Estimated Creatinine Clearance 23 ml/min; Glucose 88 mg/dl (70-99); Potassium 3.8 mmol/L (3.5-5.1); Sodium 136 mmol/L (135-145); eGFR 18.44
[2024-06-06 07:55] LABS: Hematocrit 27.1 % (37.0-47.0); Hemoglobin 9.1 g/dL (12.0-16.0); Mean Corp Hgb Conc. 33.6 g/dL (33.0-37.0); Mean Corpuscular Hgb 29.1 pg (27.0-31.0); Mean Corpuscular Volume 86.6 fL (81.0-99.0); Mean Platelet Volume 9.7 fL (7.4-10.4); Platelet Count 236 10^3/uL (130-400); Red Blood Cell Count 3.13 10^6/uL (4.20-5.40); Red Cell Dist. Width 16.5 % (11.5-14.5); White Blood Cell Count 9.9 10^3/uL (4.8-10.8)
[2024-06-06] MEDS: PROCARDIA XL (EXTENDED RELEASE) 90 MG PO (09:03)
[2024-06-06] MEDS: LIPITOR 40 MG PO (09:05)
[2024-06-06] MEDS: ZOLOFT 50 MG PO (09:05)
[2024-06-06] MEDS: VISBIOME 1 CAP PO (09:05)
[2024-06-06] MEDS: FOLVITE 1 MG PO (09:05)
[2024-06-06] MEDS: SODIUM BICARBONATE 650 MG PO ×3 (09:05→21:41)
[2024-06-06] MEDS: THERAGRAN 1 TABLET PO (09:06)
[2024-06-06] MEDS: VITAMIN D3 (cholecalciferol) 25 MCG PO (09:06)
--- NOTE | 2024-06-06 12:33 | W.PN.HOSP.TC ---
Today's Communication/Plan
-
She has arrangements to go home Monday
Assessment / Plan
Assessment / Plan
Physical Exam
General: Well Developed, Well Nourished and No Apparent Distress
HEENT: Normocephalic, Moist mucous membranes and Atraumatic
Respiratory: Clear
Cardiac: S1/S2 and Regular Rhythm; No Murmur or Rub
GI: Soft, Non Tender, Non Distended and Normal Bowel Sounds; No Organomegaly
Rectal: Deferred by Provider
Musculoskeletal: No Clubbing, No Cyanosis and No Edema
Skin: No Rash
Neuro: Nonfocal/grossly intact
# Acute on chronic normocytic anemia likely due to anemia of chronic kidney disease with chronic blood loss anemia
#Iron Deficiency Anemia
# Recent vaginal bleeding secondary to uterine fibroids status post uterine artery embolization
-No vaginal, urinary or rectal bleeding as per patient
-Hemoccult negative
� Dr Garcia spoke to gynecology, no further recommendations on a gynecological standpoint at this point
-4 units of blood - HGB around 9
-ctm
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
# Erythema mostly on right side of her body seems mostly on dependent side where she tends to lie on. Possible drug reaction. She denies itching . She denies tenderness on red spots.
-suspect 2/2 to IV iron vs abx vs possible developing pressure ulcers with body fat distribution
- Palpable red skin nodules noted on right arm, per pt, present for more than 2 years.
# Recent fevers, resolved
#UTI, EColi
-Was noted to have necrotic fibroid per recent gynecology notes - new foci of gas within the lesion which may be postprocedural necrosis given recent uterine artery embolization, rather than superimposed infection.
-switch to ciprofloxacin (would have continued on cefazolin/cephalexin but with continued ?rash
AB changed to to cipro to rule out rash 2/2 to pcn/cephalosporin). She received total of 9 days of ABx, will stop further Abx
#Continued thick white vaginal secretions - UA neg; no yeast
-suspect bacterial vaginosis
#Hypokalemia
Resolved.
#Hyponatremia
� Mild
- no confusion.
# Mild transaminitis possibly from recent antibiotic
-Continue to monitor
-resolved
Asymptomatic umbilical hernia
Essential hypertension
-Continue nifedipine
Type 2 diabetes
-Not on treatment
CKD 4
-Renal function at baseline
-Continue sodium bicarbonate - switch to TID
IVETTE, on C pap
- Morbid Obesity. BMI 56
Anxiety/depression
-Continue sertraline
Hyperlipidemia
-Continue statin
DNR/DNI
DVT prophylaxis HSQ - monitor hgb
Regular diet
Total time spent to see the patient, examine the patient on the floor, review data and lab results, discuss the treatment plan with the patient, nursing staff around 45 minutes
Anticipated Discharge: Within 24 hours
Subjective/Interval History
-
Date of Service: June 06, 2024
She feels better
Objective Data
-
Labs:
Laboratory Results
06/06/24
06:43
WBC 9.9
Hgb 9.1 L D
Hct 27.1 L
Plt Count 236
Sodium 136
Potassium 3.8
Chloride 108 H
Carbon Dioxide 14 L*
BUN 40 H
Creatinine 2.6 H
Glucose 88
Calcium 7.8 L
Vital Signs:
Vital Signs
Temp Pulse Resp BP Pulse Ox
97.5 F 86 22 148/66 97
06/06/24 06:53 06/06/24 09:03 06/06/24 06:53 06/06/24 09:03 06/06/24 06:53
I&O
06/05/24 06/06/24 06/07/24
06:59 06:59 06:59
Intake Total 920 / 920 1100 / 1100
Balance 920 / 920 1100 / 1100
[2024-06-06 15:20] VITALS: BP 138/66
--- NOTE | 2024-06-06 15:47 | CM ---
Sheila is looking forward to going home tomorrow. Her brother and a caregiver from [facility] will be at home to provide care and assistance. Caregiver is there 7 days/week.
Sheila's primary care physician does home visits and arranges for bloodwork in the home as needed.
CM to follow to arrange ambulance transport at discharge.
Plan: Discharge to home via ambulance on June 07.
[2024-06-06 23:00] VITALS: BP 117/55
[2024-06-07] MEDS: HEPARIN 5000 UNITS SC ×2 (01:03→08:06)
[2024-06-07 07:30] VITALS: BP 120/58
[2024-06-07] MEDS: PROCARDIA XL (EXTENDED RELEASE) 90 MG PO (08:04)
[2024-06-07] MEDS: SODIUM BICARBONATE 650 MG PO (08:04)
[2024-06-07] MEDS: FOLVITE 1 MG PO (08:04)
[2024-06-07] MEDS: LIPITOR 40 MG PO (08:04)
[2024-06-07] MEDS: ZOLOFT 50 MG PO (08:05)
[2024-06-07] MEDS: VITAMIN D3 (cholecalciferol) 25 MCG PO (08:05)
[2024-06-07] MEDS: THERAGRAN 1 TABLET PO (08:06)
[2024-06-07] MEDS: VISBIOME 1 CAP PO (08:06)
[2024-06-07 08:27] LABS: Hematocrit 24.8 % (37.0-47.0); Hemoglobin 8.2 g/dL (12.0-16.0); Mean Corp Hgb Conc. 33.1 g/dL (33.0-37.0); Mean Corpuscular Hgb 28.9 pg (27.0-31.0); Mean Corpuscular Volume 87.3 fL (81.0-99.0); Mean Platelet Volume 10.3 fL (7.4-10.4); Platelet Count 226 10^3/uL (130-400); Red Blood Cell Count 2.84 10^6/uL (4.20-5.40); Red Cell Dist. Width 16.6 % (11.5-14.5)
--- NOTE | 2024-06-07 09:21 | W.PN.HOSP.TC ---
Today's Communication/Plan
-
Discharge
Assessment / Plan
Assessment / Plan
Physical Exam
General: Well Developed, Well Nourished and No Apparent Distress
HEENT: Normocephalic, Moist mucous membranes and Atraumatic
Respiratory: Clear
Cardiac: S1/S2 and Regular Rhythm; No Murmur or Rub
GI: Soft, Non Tender, Non Distended and Normal Bowel Sounds; No Organomegaly
Rectal: Deferred by Provider
Musculoskeletal: No Clubbing, No Cyanosis and No Edema
Skin: No Rash
Neuro: Nonfocal/grossly intact
# Acute on chronic normocytic anemia likely due to anemia of chronic kidney disease with chronic blood loss anemia
#Iron Deficiency Anemia
# Recent vaginal bleeding secondary to uterine fibroids status post uterine artery embolization
-No vaginal, urinary or rectal bleeding as per patient
-Hemoccult negative
� Dr Garcia spoke to gynecology, no further recommendations on a gynecological standpoint at this point
-4 units of blood - HGB around 9
-ctm
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
# Erythema mostly on right side of her body seems mostly on dependent side where she tends to lie on.Likely pressure related from her body habitus and lack of activity, less likely drug reaction. She denies itching . She denies tenderness on red
spots.
- At risk of skin pressure injury
- Palpable red skin nodules noted on right arm, per pt, present for more than 2 years.
# Recent fevers, resolved
#UTI, EColi
-Was noted to have necrotic fibroid per recent gynecology notes - new foci of gas within the lesion which may be postprocedural necrosis given recent uterine artery embolization, rather than superimposed infection.
-switch to ciprofloxacin (would have continued on cefazolin/cephalexin but with continued ?rash
AB changed to to cipro to rule out rash 2/2 to pcn/cephalosporin). She received total of 9 days of ABx, finished Abx
#Continued thick white vaginal secretions - UA neg; no yeast
No complaints
#Hypokalemia
Resolved.
#Hyponatremia
� Mild
- no confusion.
# Mild transaminitis possibly from recent antibiotic
-Continue to monitor
-resolved
Asymptomatic umbilical hernia
Essential hypertension
-Continue nifedipine
Type 2 diabetes
-Not on treatment
CKD 4
-Renal function at baseline
-Continue sodium bicarbonate - switched to TID
IVETTE, on C pap
- Morbid Obesity. BMI 56
Anxiety/depression
-Continue sertraline
Hyperlipidemia
-Continue statin
DNR/DNI
DVT prophylaxis HSQ - monitor hgb
Regular diet
Total discharge time spent to see the patient, examine the patient on the floor, review data and lab results, discuss the discharge plan with the patient, nursing staff around 65 minutes
Anticipated Discharge: Today
Subjective/Interval History
-
Date of Service: June 07, 2024
No chest pain
No sob
she feels ready to go home
Objective Data
-
Labs:
Laboratory Results
06/07/24
07:31
WBC 10.0
Hgb 8.2 L
Hct 24.8 L
Plt Count 226
Vital Signs:
Vital Signs
Temp Pulse Resp BP Pulse Ox
98.5 F 95 22 120/58 96
06/07/24 07:30 06/07/24 07:30 06/07/24 07:30 06/07/24 07:30 06/07/24 07:30
I&O
06/06/24 06/07/24 06/08/24
06:59 06:59 06:59
Intake Total 1100 / 1100 480 / 480
Balance 1100 / 1100 480 / 480
--- NOTE | 2024-06-07 12:08 | W.DCSUMMARY ---
Discharge Summary
Discharge Data
Date of Admission: 05/27/24
Date of Discharge: 06/07/24
-
Pending Results: No
Hospital Course
78 years old female who presented with anemia. Outpatient hemoglobin was 6.9, in hospital was 5.8. Patient had history of obesity, immobility, chronic kidney disease stage IV and anemia related to it. She had recent vaginal bleeding that was
treated and stopped since then. She was diagnosed with anemia due to anemia of chronic disease in addition to blood loss anemia. She received total of 4 units in the hospital in addition to oral iron. Hemoglobin stabilized around 8-9 upon
discharge. Creatinine was stable around 2.6. No rectal bleeding or melena. Patient was noticed to have red the skin along the right side of her body and was secondary to her body habitus in addition to prolonged immobilization on that side.
Patient was advised to use supporting cushions to avoid pressure injury on the skin. Patient had recent history of urinary tract infection received antibiotic therapy. She finished antibiotic with no fever or leukocytosis. Patient remained
hemodynamically stable. She was evaluated by case management and home care service was set up for the patient. She was discharged in a stable condition.
Discharge Plan
-
Patient Disposition: Home with Home Care
Discharge Diagnosis/Procedures: Acute on chronic normocytic anemia likely due to anemia of chronic kidney disease with chronic blood loss anemia status post 4 units of transfusion
Diet: As tolerated
Referrals:
Bernie Tovar CRNP [Family Provider] -
Harry Kaiser MD [Non-Admitting Privileges] - in one to two weeks
Prescriptions:
Continued
atorvastatin 40 mg Tablet
40 mg PO DAILY
sodium bicarbonate 650 mg Tablet
650 mg PO BID
folic acid 1 mg Tablet
1 mg PO DAILY
sertraline 50 mg Tablet
50 mg PO DAILY
cholecalciferol (vitamin D3) 25 mcg (1,000 unit) Tablet
25 mcg PO DAILY
ferrous sulfate 324 mg (65 mg iron) Tablet,Delayed Release (Dr/Ec)
324 mg PO DAILY
fluticasone prp-sod.chl,bicarb 50 mcg- 0.9 % Kit,Parsons Suspension And Parsons
2 spray INTRANASAL DAILY PRN (Reason: rhinitis)
Centrum Minis Women 50 Plus 4 mg iron-200 mcg-25 mcg Tablet
1 tab PO DAILY
nifedipine 30 mg Tablet Extended Release
90 mg PO DAILY Qty: 30 0RF
Probiotic 3 billion cell capsule
3,000 mmu cells PO DAILY
Discharge Orders:
Discharge Patient (As Directed); Ordered 06/07/24
Ordered By: Franki Callahan
Discharge Date and Time
Print Language: TRISTANIAN
[2024-06-07 12:09] VITALS: BP 141/58
== END 2024-06-07 13:20 | disposition home health service (06) | DRG 812 ==
LOC: 4 EAST ACU 16:55
PROVIDERS: Emergency Medicine; Internal Medicine; Nurse Practitioner Gerontology; Physician Assistant; ADMITTING PHYSICIAN Hospitalist; ATTENDING PHYSICIAN Internal Medicine; EMERGENCY PHYSICIAN Emergency Medicine; FAMILY PHYSICIAN Nurse Practitioner Family
PROC: 30233N1 Transfusion of Nonautologous Red Blood Cells into Peripheral Vein, Percutaneous Approach (ICD-10-PCS; 2024-05-27)
PROC: 5A09357 Assistance with Respiratory Ventilation, Less than 24 Consecutive Hours, Continuous Positive Airway Pressure (ICD-10-PCS; 2024-05-28)
DX: D50.0 Iron deficiency anemia secondary to blood loss (chronic) (principal); N18.4 Chronic kidney disease, stage 4 (severe); E87.1 Hypo-osmolality and hyponatremia; Z68.43 Body mass index [BMI] 50.0-59.9, adult; N39.0 Urinary tract infection, site not specified; L03.90 Cellulitis, unspecified; Z66 Do not resuscitate; E11.22 Type 2 diabetes mellitus with diabetic chronic kidney disease; I12.9 Hypertensive chronic kidney disease with stage 1 through stage 4 chronic kidney disease, or unspecified chronic kidney disease; D63.1 Anemia in chronic kidney disease; D25.9 Leiomyoma of uterus, unspecified; E66.01 Morbid (severe) obesity due to excess calories; E78.5 Hyperlipidemia, unspecified; F32.A Depression, unspecified; F41.9 Anxiety disorder, unspecified; K42.9 Umbilical hernia without obstruction or gangrene; R74.01 Elevation of levels of liver transaminase levels; L89.152 Pressure ulcer of sacral region, stage 2; B96.20 Unspecified Escherichia coli [E. coli] as the cause of diseases classified elsewhere; E87.6 Hypokalemia; N76.0 Acute vaginitis; G47.33 Obstructive sleep apnea (adult) (pediatric); Z74.01 Bed confinement status; Z11.52 Encounter for screening for COVID-19
CPT/HCPCS: 36430; 71046; 74176; 80048; 80053; 80202; 81003; 81015; 82607; 82728; 82746; 83540; 83550; 83735; 85025; 85027; 86850; 86900; 86901; 86920; 87077; 87086; 87186; 87324; 87449; 87491; 87591; 87641; 87811; 93005; 93306; 94660; 99285; J2916; P9016; P9040

== ENCOUNTER 2024-07-13 17:36 | Inpatient (IN) | payer OTHER, SELFPAY ==
[2024-07-13] VITALS (10 sets, daily range): BP systolic 103–136; BP diastolic 52–93; PULSE 83; BMI 48.4; BMI 44.3
[2024-07-13 14:01] LABS: Blood Urea Nitrogen 62 mg/dl (7-17); Calcium 7.6 mg/dl (8.4-10.2); Carbon Dioxide 20 mmol/L (22-30); Chloride 107 mmol/L (98-107); Estimated Creatinine Clearance 22 ml/min; Glucose 122 mg/dl (70-99); Sodium 139 mmol/L (135-145); eGFR 17.62
[2024-07-13 14:05] LABS: Hematocrit 24.9 % (37.0-47.0); Hemoglobin 7.9 g/dL (12.0-16.0); Mean Corp Hgb Conc. 31.7 g/dL (33.0-37.0); Mean Corpuscular Hgb 28.5 pg (27.0-31.0); Mean Corpuscular Volume 89.9 fL (81.0-99.0); Mean Platelet Volume 11.5 fL (7.4-10.4); Platelet Count 113 10^3/uL (130-400); Red Blood Cell Count 2.77 10^6/uL (4.20-5.40); Red Cell Dist. Width 18.3 % (11.5-14.5); White Blood Cell Count 19.7 10^3/uL (4.8-10.8)
[2024-07-13 14:15] LABS: % Basophils 0.6 % (0-2); % Eosinophils 0.3 % (0-6); % Lymphocytes 4.5 % (20.5-51.1); % Monocytes 5.4 % (1.7-9.3); % Neutrophils 88.2 % (42.2-75.2); Absolute Basophils 0.1 10^3/uL (0-0.2); Absolute Eosinophils 0.1 10^3/uL (0-0.7); Absolute Immature Granulocytes 0.2 10^3/uL (0-0.05); Absolute Lymphocytes 0.9 10^3/uL (1.2-3.4); Absolute Monocytes 1.1 10^3/uL (0.1-0.6); Absolute Neutrophils 17.4 10^3/uL (1.4-6.5); Nucleated Red Blood Cells % 0 %
[2024-07-13 15:17] LABS: Urine Albumin 2+ (Neg - Trace); Urine Bilirubin Negative (Negative); Urine Character Mucous (Clear); Urine Glucose Negative (Negative); Urine Ketone Negative (Negative); Urine Leukocyte 2+ (Negative); Urine Nitrite Negative (Negative); Urine Occult Blood 4+ (Negative); Urine Specific Gravity 1.015 (<1.030); Urine Urobilinogen Negative (Neg - 1+)
[2024-07-13 15:18] LABS: Urine Color Brown
--- NOTE | 2024-07-13 15:21 | ED.GENMED ---
History of Present Illness
General
Chief Complaint: Abnormal Lab Value
Source: patient
Exam Limitations: none
Time Seen by Provider: 07/13/24 12:56
Nursing documentation reviewed up to this point in time: agreed with
History of Present Illness
History of Present Illness:
Patient with history of anemia, on iron pills as an outpatient, presents to ED after receiving phone call from her primary care physician regarding abnormal outpatient blood work obtained 3 days ago. Patient does not know which lab value was
abnormal. Otherwise, patient reports generalized weakness. Denies fever or chills. Denies coughing. Denies loss of appetite. Denies weakness. Denies shortness of breath. Denies nausea, vomiting, or diarrhea. Denies headache. Denies
dizziness. Of note, patient states that she was treated for urinary tract infection during hospitalization last month, but was told that she still has 'UTI'.
Review of Systems
Review of Systems
Allergies reviewed?: Yes
All Other Systems: ROS reviewed and negative except as documented in HPI and ROS
Constitutional: Reports no symptoms
Respiratory: Reports no symptoms
Cardiac: Reports no symptoms
ABD/GI: Reports no symptoms
: Reports no symptoms; Denies dysuria or frequency
Musculoskeletal: Reports no symptoms
Skin: Reports no symptoms
Neurological: Reports no symptoms
Phy Exam
Physical Exam
Physical Exam:
Physical Exam
General: no apparent distress, not acutely ill. afebrile. obese
Head: nc/at. eomi
Neck: supple. no meningeal signs.
Heart: s1/s2 regular rate and rhythm, no murmur. equal radial pulses.
Lungs: no acute respiratory distress. clear bilaterally
Abdomen: normal bowel sounds. not tender.
Neuro: alert and oriented. no focal neurological deficits
Skin: no rash
Psychiatric: well kept. interactive and cooperative
Extremities: lymphedema b/l.
Course
Orders/Labs/Results
Orders:
Orders
07/13/24 12:11
Type+Screen Urgent
Basic Metabolic Panel Urgent
CBC/With Diff [Complete Blood Count/With Diff] Urgent
Lactic Acid Urgent
07/13/24 Dinner
Regular
At Your Request: Full Participation
07/13/24 15:08
Urinalysis Reflex To Culture Urgent
Date Specimen was Collected: 07/13/24
Time Specimen was Collected: 15:07
Urine Microscopic Reflex Cult Urgent
Urine Culture Urgent
ANUSHA Source: U
Specimen Description:
Obtained by: Random
Date Specimen was Collected: 07/13/24
Time Specimen was Collected: 15:07
07/13/24 16:40
CefTRIAXone [Rocephin] 1,000 mg IV NOW STA
07/13/24 17:19
Add On- LAB Routine
Tests Added?: iron, ferritin, tibc, folate, vit b12
07/13/24 17:20
Admit/Transfer Patient As Directed
Co-Sign Provider:
Level of Care: Inpatient admission
Assign to:: Medical/Surgical
Physician / Group: Htay
Diagnosis: UTI
Reason for Hospitalization: IV abx
Expected length of stay greater than two midnights?: Yes
ELOS- Estimated Length of Stay in days: 3
I certify the patient meets the requirements for IP care: Yes
PRN Pain Medication Management As Directed
May give lesser potent ordered pain med per pt: Yes
preference::
Protocol:: Medication orders for pain may be administered in a
manner that supports deferring to patient preference
when the pt is:
- Requesting an ordered lesser potent pain medication.
Least to most potent pain medications are defined
as: acetaminophen < NSAID < tramadol < opioids
(morphine, oxycodone, hydromorphone).
- Requesting a lesser dose of the same medication IF
ORDERED.
- Requesting a less intrusive route of administration
if both routes are prescribed by the provider (PO <
IV).
07/13/24 17:21
Code Status As Directed
Resuscitation Status: Do not resuscitate
Reached after discussion with pt or family/Healthcare POA: Yes
07/13/24 17:22
DNR Bracelet Application ONCE
Abnormal Lab Results
07/13/24 07/13/24
12:11 15:08
WBC 19.7 H 10^3/uL
(4.8-10.8)
RBC 2.77 L 10^6/uL
(4.20-5.40)
Hgb 7.9 L g/dL
(12.0-16.0)
Hct 24.9 L %
(37.0-47.0)
MCHC 31.7 L g/dL
(33.0-37.0)
RDW 18.3 H %
(11.5-14.5)
Plt Count 113 L 10^3/uL
(130-400)
MPV 11.5 H fL
(7.4-10.4)
Abs Immat Gran (auto) 0.2 H 10^3/uL
(0-0.05)
Absolute Neuts (auto) 17.4 H 10^3/uL
(1.4-6.5)
Absolute Lymphs (auto) 0.9 L 10^3/uL
(1.2-3.4)
Absolute Monos (auto) 1.1 H 10^3/uL
(0.1-0.6)
Immature Gran % 1.0 H %
(0-0.5)
Neutrophils % 88.2 H %
(42.2-75.2)
Lymphocytes % 4.5 L %
(20.5-51.1)
Carbon Dioxide 20 L mmol/L
(22-30)
BUN 62 H mg/dl
(7-17)
Creatinine 2.7 H mg/dL
(0.6-1.0)
Glucose 122 H mg/dl
(70-99)
Calcium 7.6 L mg/dl
(8.4-10.2)
Ur Occult Blood Reflex 4+ A
(Negative)
Leukocyte Esterase Rfl 2+ A
(Negative)
Urine RBC 26-30 A /HPF
(0-2)
Urine WBC (Reflex) >100 A /HPF
(0-5)
Urine Bacteria (Reflex) Many A
(Negative)
Urine Albumin (Reflex) 2+ A
(Neg - Trace)
07/13/24 12:11
07/13/24 12:11
Vital Signs
Initial and Last Documented VS:
Initial Vital Signs
Resp BP
0 124/66
07/13/24 12:05 07/13/24 12:05
Last Documented Vital Signs
Pulse Resp BP Pulse Ox
85 23 134/52 99
07/13/24 17:45 07/13/24 17:45 07/13/24 17:00 07/13/24 13:15
MDM/Problems Addressed
MDM/Problems Addressed:
Patient with his generalized weakness, likely multifactorial including UTI as well as anemia. In light of patient's significant leukocytosis and overall fatigue and weakness, patient will be admitted for IV antibiotics.
Blood transfusion consent on the chart. Will hold off transfusion at this time, as her initial Hb appears to be close to her baseline.
*Critical Care Note
Total Time (30-74mins, 75-104mins- exclusive of procedures): Not Applicable
ED Attending Note
-
Portions of this chart may have been created with voice recognition software.� Occasional wrong word or��sound alike� substitutions may have occurred due to the inherent limitations of voice recognition software.
Discharge Plan
Departure
Patient Disposition: Admit
Date of Disposition: 07/13/24
Time of Disposition: 16:42
Admit to: Med/Surg
Presentation/result/management discussed w/ accepting MD/DO: Hospitalist
Discharge Problem:
Acute UTI, Anemia
Interventions
Interventions:
*Risk Screen - Suicide Last Done: 07/13/24 12:07
*General Assessment Last Done: 07/13/24 12:07
*Neglect/Abuse Screening Last Done: 07/13/24 12:07
ED- Fall Risk Assessment Last Done: 07/13/24 12:27
*ED COVID-19 Vaccine History Last Done: 07/13/24 12:07
[2024-07-13 15:26] LABS: Urine Mucus Many; Urine White Cell >100 /HPF (0-5)
[2024-07-13 15:27] LABS: Urine Bacteria Many (Negative); Urine Red Blood Cell 26-30 /HPF (0-2)
[2024-07-13] MEDS: ROCEPHIN 1000 MG IV (16:42)
--- NOTE | 2024-07-13 17:07 | HPS.HSE ---
Addendum entered and electronically signed by Praveen Burris MD 07/13/24 17:26:
I saw and examined the patient.
The CHISEL WORKER or PA's note was reviewed and I agree with the note.
Comment:
78F from home with brother( disable ?) morbidly obese, chronic�ambulatry dysfunction HX pw generalized weakness and abnormal outpatient Hgb.
HX�anemia of chronic dz due to CKD4/5. Baseline Hgb�is�hi 7s.�on PO Iron Tx.
She was sent to ER for outpatient�abn�Hgb��3 days ago; Hgb� 7.9 but not far off from baseline.
Noted HX CKD4 . Current Cr 2.7 is at base line.
UA POS for UTI. UCx sent �
Afebrile. Hemodynamically stable.�
ASSESSMENT & PLAN
Suspect acute on chr weakness��due to current�UTI decompensated the�chr FTT at home.�
Stable severe ACDz
Stable CKD4/5
Agree with IV CFTZ.
To check stool for HoB
T & S and blood consented.
To hold of Blood Tx for now.��
DNR.
IP MS.�
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
�
Original Note:
Family Physician
-
Family Physician: NOT KNOW UNKNOWN - PT DOES
Chief Complaint
-
Abnormal Labs
History of Present Illness
Patient is a 78 y/o female past medical history of CKD IV, Anemia of Chronic Disease, Diabetes Mellitus and Morbid Obestiy who presents with abnormal labs. Patient had blood work completed on MondayJul 10 and she received a call today to go to
the emergency department as her hemoglobin was lower than previous. Patient reports some increased generalized weakness, but is bed bound at baseline. She denies chest pain, palpitations, shortness of breath, dizziness/lightheadedness. She denies
any vaginal bleeding, black or bloody stools. Additional work-up raises concern for urinary tract infection. Patient denies dysuria, but was noted to have very foul smelling urine by ED staff.
Medical History
Past Medical History
Past Medical History: Reports Other
Additional Past Medical History:
CKD Stage IV
Anemia of Chronic Renal Disease
Chronic Metabolic Acidosis
Diabetes Mellitus, Type II
Essential Hypertension
Hyperlipidemia
Anxiety / Depression
Morbid Obesity
Chronically Bedridden
Past Surgical History: Reports Other
Additional Past Surgical History:
T&A (x 2)
(x 2)
Uterine Artery Embolization
Social History
Tobacco: Non-smoker
Alcohol: None
Drug: None
Family History
Family History: Not pertinent
Allergies / Home Medications
Allergies reflects when Allergies were last updated in [employer].
Home Medications with original date entered in [employer]
Allergy/Medication List:
Allergies
Allergy/AdvReac Type Severity Reaction Status Date / Time
No Known Allergies Allergy Unverified 04/12/24 17:43
Home Medications
atorvastatin 40 mg tablet 40 mg PO DAILY 04/12/24
cholecalciferol (vitamin D3) 25 mcg (1,000 unit) tablet 25 mcg PO DAILY 04/12/24
ferrous sulfate 324 mg (65 mg iron) tablet,delayed release 324 mg PO DAILY 04/12/24
fluticasone prop.50 mcg spray,suspen-sod.chloride 0.9% nasal spray kit 2 spray intranasal DAILY PRN rhinitis 04/12/24
folic acid 1 mg tablet 1 mg PO DAILY 04/12/24
chfuousl-pul-mxda 4 mg-folic acid 200 mcg-vit K 25 mcg-lutein tablet (Centrum Minis Women 50 Plus) 1 tab PO DAILY 04/12/24
sertraline 50 mg tablet 50 mg PO DAILY 04/12/24
sodium bicarbonate 650 mg tablet 650 mg PO BID 04/12/24
Review of Systems
-
A 12 point ROS was completed and negative except as noted: Yes
Constitutional: Denies Fever or Chills
Respiratory: Denies Cough or Trouble Breathing
Cardiac: Denies Chest Pain or Palpitations
Abdomen/GI: Denies Abdominal Pain or Nausea
Physical Exam
Vital Signs
Vital Signs
Pulse Resp BP Pulse Ox
84 27 124/66 99
07/13/24 15:30 07/13/24 15:30 07/13/24 12:07 07/13/24 13:15
Physical Exam
General: Comfortable and Conversant
HEENT: Anicteric, Moist mucous membranes and Other (Poor dentition)
Respiratory: Clear and Non Labored Respirations
Cardiac: S1/S2 and Regular Rhythm; No Tachycardia
GI: Soft and Non Tender
Musculoskeletal: No Clubbing, No Cyanosis and Other (Chronic lower extremity edema)
Skin: Warm and Dry
Neuro: Awake, Alert, Oriented and Nonfocal/grossly intact
Psych: Calm
Laboratory Results
-
07/13/24 12:11
07/13/24 12:11
Laboratory Results
Lactic Acid 2.0 mmol/L (0.7-2.0) 07/13/24 12:11
Total Bilirubin Cancelled 07/13/24 12:11
AST Cancelled 07/13/24 12:11
ALT Cancelled 07/13/24 12:11
Alkaline Phosphatase Cancelled 07/13/24 12:11
Data Reviewed
-
Lab Data: Labs Reviewed by me
Old Records: Reviewed
Impression/Plan
-
Urinary Tract Infection
-Continue ceftriaxone
-Await urine culture
Anemia of Chronic Renal Disease
-Hgb does not appear far from baseline
-Hold on blood transfusion
-Continue to trend Hgb
-Continue iron supplement
CKD Stage IV
-Creatinine at baseline
Chronic Metabolic Acidosis
-Continue sodium bicarbonate
Diabetes Mellitus, Type II
Essential Hypertension
-Continue nifedipine
Hyperlipidemia
-Continue atorvastatin
Anxiety / Depression
-Continue sertraline
Morbid Obesity due to Excess Calories
-Affects all aspects of care
DVT proph: SC Heparin
Code Status: DNR
[2024-07-13] MEDS: SODIUM BICARBONATE 650 MG PO (21:58)
[2024-07-14] MEDS: HEPARIN 5000 UNITS SC ×3 (00:51→16:07)
--- NOTE | 2024-07-14 02:01 | PTCARENOTE ---
Pt admitted from ED. Complete care. Pt AAOx3, no c/o pain. Pt afebrile, VSS. Lungs clear, diminished. CPAP overnight. No N/V or stools. Foul smelling, cloudy urine noted. q2 turns. Call ricks within reach. Awaiting further plan.
[2024-07-14 06:16] LABS: Hematocrit 23.4 % (37.0-47.0); Hemoglobin 7.4 g/dL (12.0-16.0); Mean Corp Hgb Conc. 31.6 g/dL (33.0-37.0); Mean Corpuscular Hgb 29.4 pg (27.0-31.0); Mean Corpuscular Volume 92.9 fL (81.0-99.0); Mean Platelet Volume 11.9 fL (7.4-10.4); Platelet Count 108 10^3/uL (130-400); Red Blood Cell Count 2.52 10^6/uL (4.20-5.40); Red Cell Dist. Width 18.3 % (11.5-14.5); White Blood Cell Count 18.9 10^3/uL (4.8-10.8)
[2024-07-14 06:40] LABS: Blood Urea Nitrogen 65 mg/dl (7-17); Calcium 7.5 mg/dl (8.4-10.2); Carbon Dioxide 19 mmol/L (22-30); Chloride 106 mmol/L (98-107); Estimated Creatinine Clearance 20 ml/min; Glucose 106 mg/dl (70-99); Potassium 4.7 mmol/L (3.5-5.1); Sodium 139 mmol/L (135-145); eGFR 15.53
[2024-07-14 08:26] VITALS: BP 129/50
[2024-07-14] MEDS: SODIUM BICARBONATE 650 MG PO ×2 (08:58→19:24)
[2024-07-14] MEDS: LIPITOR 40 MG PO (08:58)
[2024-07-14] MEDS: FOLVITE 1 MG PO (08:58)
[2024-07-14] MEDS: VITAMIN D3 (cholecalciferol) 25 MCG PO (09:00)
[2024-07-14] MEDS: ZOLOFT 50 MG PO (09:00)
[2024-07-14] MEDS: FEOSOL 325 MG PO (09:00)
[2024-07-14] MEDS: DESENEX/MITRAZOL/ZEASORB 1 APPLIC TOPICAL ×2 (09:00→19:24)
[2024-07-14] MEDS: PROCARDIA XL (EXTENDED RELEASE) 90 MG PO (09:02)
[2024-07-14] MEDS: STERILE WATER FOR INJECTION 10 ML IV (09:29)
[2024-07-14] MEDS: ROCEPHIN 1000 MG IV (09:29)
--- NOTE | 2024-07-14 09:56 | W.PN.HOSP.TC ---
Today's Communication/Plan
-
Trial of IV iron
Await urine culture
Urine studies
Bladder scan per the protocol
Trend CBC and BMP
Heme test stool pending
Assessment / Plan
Assessment / Plan
General: Comfortable and Conversant, morbidly obese
HEENT: Anicteric, Moist mucous membranes and Other (Poor dentition)
Respiratory: Clear and Non Labored Respirations
Cardiac: S1/S2 and Regular Rhythm; No Tachycardia
GI: Soft and Non Tender
Musculoskeletal: No Clubbing, No Cyanosis and Other (Chronic lower extremity edema)
Skin: Warm and Dry
Neuro: Awake, Alert, Oriented and Nonfocal/grossly intact
Psych: Calm
Urinary Tract Infection
-Continue ceftriaxone
-Await urine culture
Anemia of Chronic Renal Disease
-Hold on blood transfusion. Consent scanned into the system.
-Continue to trend Hgb
-Continue with folic acid. Will do trial of IV iron. Heme test stool pending.
MONI on CKD Stage IV
-Check urine sodium and creatinine. Bladder scan per the protocol.
Chronic Metabolic Acidosis
-Continue sodium bicarbonate
Diabetes Mellitus, Type II
Essential Hypertension
-Continue nifedipine
Hyperlipidemia
-Continue atorvastatin
Anxiety / Depression
-Continue sertraline
Morbid Obesity due to Excess Calories
-Affects all aspects of care
DVT proph: SC Heparin
Code Status: DNR
Anticipated Discharge: > 48 hours
Subjective/Interval History
-
Date of Service: July 14, 2024
Denies any hematuria or bright red blood per the rectum
Denies any abdominal pain nausea vomiting
Objective Data
-
Labs:
Laboratory Results
07/14/24
05:22
WBC 18.9 H
Hgb 7.4 L
Hct 23.4 L
Plt Count 108 L
Sodium 139
Potassium 4.7
Chloride 106
Carbon Dioxide 19 L
BUN 65 H
Creatinine 3.0 H
Glucose 106 H
Calcium 7.5 L
Vital Signs:
Vital Signs
Temp Pulse Resp BP Pulse Ox
97.9 F 82 19 125/50 96
07/14/24 08:26 07/14/24 09:02 07/14/24 08:26 07/14/24 09:02 07/14/24 08:26
I&O
07/13/24 07/14/24 07/15/24
06:59 06:59 06:59
Intake Total
Balance
Data Reviewed
-
Total Time Spent with Patient (in minutes): 52
--- NOTE | 2024-07-14 11:27 | CM ---
Met with patient who resides with her son Rosales in a 2 story house with 3 THOMAS, and first floor bedroom/bath.
The patient was assisted with ADLs by her caregiver and is w/c bound and non-ambulatory.
She is taken into the bathroom every 2 weeks for a shower and stays in her w/c instead of transferrring to shower chair.
The patient is able to use a slide board to get OOB to her w/c.
She uses diapers only and does not use a commode or the toilet.
The patient has [facility] 6hrs/day 7 days/week from 7a-6p.
DME - hospital bed, air mattress, w/c, O2 4L, CPAP
No prior VN.
Prior [facility] in [facility].
PCP - Bernie Tovar who does home visits, gets labs drawn at home
Pharmacy - [address], [place]
patient would like home Rn from a VNA agency. She has no preference just one that takes her [employer] insurance.
CM continuing to follow for d/c needs.
Plan home with caregivers.
[2024-07-14] MEDS: FERRLECIT 110 MG IV (13:32)
[2024-07-14 14:09] LABS: Urine Sodium 38 mmol/L (30-90)
[2024-07-14 16:38] VITALS: BP 111/55
[2024-07-14 20:26] VITALS: PULSE 88
[2024-07-14 23:39] VITALS: BP 98/47
[2024-07-15] MEDS: HEPARIN 5000 UNITS SC ×4 (01:00→23:16)
[2024-07-15 07:00] VITALS: BP 105/49
[2024-07-15] MEDS: PROCARDIA XL (EXTENDED RELEASE) 90 MG PO (08:29)
[2024-07-15] MEDS: SODIUM BICARBONATE 650 MG PO ×2 (08:30→21:33)
[2024-07-15] MEDS: ZOLOFT 50 MG PO (08:30)
[2024-07-15] MEDS: LIPITOR 40 MG PO (08:30)
[2024-07-15] MEDS: VITAMIN D3 (cholecalciferol) 25 MCG PO (08:31)
[2024-07-15] MEDS: FOLVITE 1 MG PO (08:31)
[2024-07-15] MEDS: DESENEX/MITRAZOL/ZEASORB 1 APPLIC TOPICAL ×2 (08:32→21:30)
[2024-07-15 09:35] LABS: Hematocrit 23.8 % (37.0-47.0); Hemoglobin 7.4 g/dL (12.0-16.0); Mean Corp Hgb Conc. 31.1 g/dL (33.0-37.0); Mean Corpuscular Volume 90.2 fL (81.0-99.0); Red Blood Cell Count 2.64 10^6/uL (4.20-5.40); Red Cell Dist. Width 18.2 % (11.5-14.5)
--- NOTE | 2024-07-15 10:05 | W.PN.HOSP.TC ---
Today's Communication/Plan
-
Do blood culture
c/w Rocephin
Assessment / Plan
Assessment / Plan
Physical exam:
General: Comfortable and Conversant, morbidly obese
HEENT: Anicteric, Moist mucous membranes and Other (Poor dentition)
Respiratory: Clear and Non Labored Respirations
Cardiac: S1/S2 and Regular Rhythm; No Tachycardia
GI: Soft and Non Tender
Musculoskeletal: No Clubbing, No Cyanosis and Other (Chronic lower extremity edema)
Skin: Warm and Dry
Neuro: Awake, Alert, Oriented and Nonfocal/grossly intact
Psych: Calm
#Abnormal Lab work with leukocytosis, dc with Urinary Tract Infection
Hx of recurrent UTI
Will do blood culture
-Continue ceftriaxone
-Await urine culture
Anemia of Chronic Renal Disease
-Hold on blood transfusion. Consent scanned into the system.
-Continue to trend Hgb
-Continue with folic acid. Will do trial of IV iron. Heme test stool pending.
MONI on CKD Stage IV
-Urine sodium 38, Bladder scan per the protocol.
Chronic Metabolic Acidosis
-Continue sodium bicarbonate
Diabetes Mellitus, Type II
Essential Hypertension
-Continue nifedipine
Hyperlipidemia
-Continue atorvastatin
Anxiety / Depression
-Continue sertraline
Morbid Obesity due to Excess Calories, BMI 44, Bed bound
-Affects all aspects of care
DVT proph: SC Heparin
Code Status: DNR
Total time spent to see the patient on the floor, examine the patient, review data and lab results, discuss treatment plan with patient, nursing staff around 55 minutes
Anticipated Discharge: 24 - 48 hours
Subjective/Interval History
-
Date of Service: July 15, 2024
Objective Data
-
Labs:
Laboratory Results
07/15/24
09:06
WBC 19.0 H
Hgb 7.4 L
Hct 23.8 L
Plt Count Pending
Sodium Pending
Potassium Pending
Chloride Pending
Carbon Dioxide Pending
BUN Pending
Creatinine Pending
Glucose Pending
Calcium Pending
Vital Signs:
Vital Signs
Temp Pulse Resp BP Pulse Ox
97.7 F 78 18 105/49 97
07/15/24 07:00 07/15/24 07:00 07/15/24 07:00 07/15/24 07:00 07/15/24 07:00
I&O
07/14/24 07/15/24 07/16/24
06:59 06:59 06:59
Intake Total 1080 / 1080
Balance 1080 / 1080
[2024-07-15 10:27] LABS: % Basophils 0.7 % (0-2); % Eosinophils 0.2 % (0-6); % Immature Granulocytes 1.2 % (0-0.5); % Lymphocytes 6.5 % (20.5-51.1); % Monocytes 5.6 % (1.7-9.3); % Neutrophils 85.8 % (42.2-75.2); Absolute Basophils 0.1 10^3/uL (0-0.2); Absolute Immature Granulocytes 0.2 10^3/uL (0-0.05); Absolute Lymphocytes 1.2 10^3/uL (1.2-3.4); Absolute Monocytes 1.1 10^3/uL (0.1-0.6); Absolute Neutrophils 16.3 10^3/uL (1.4-6.5); Nucleated Red Blood Cells % 0 %
[2024-07-15] MEDS: ROCEPHIN 1000 MG IV (10:35)
[2024-07-15] MEDS: STERILE WATER FOR INJECTION 10 ML IV (10:36)
[2024-07-15 13:06] LABS: Blood Urea Nitrogen 62 mg/dl (7-17); Calcium 7.5 mg/dl (8.4-10.2); Carbon Dioxide 22 mmol/L (22-30); Chloride 104 mmol/L (98-107); Estimated Creatinine Clearance 19 ml/min; Glucose 137 mg/dl (70-99); Potassium 4.5 mmol/L (3.5-5.1); Sodium 138 mmol/L (135-145); eGFR 14.37
--- NOTE | 2024-07-15 13:29 | VNURNOTE ---
Home Health Liaison met with patient at bedside to discuss [facility] nurse/therapy, visits, schedule and homebound status. Patient is agreeable and understands that visits at home will be 2-3 x per week to assess and teach medical management. She
declines [employer] CR[employer] POUNCER, she has [facility] daily. [facility] brochure provided with contact information. Patient is aware that [facility] will contact them for start of care in 1-2 days after discharge from .
[facility] referral completed in [facility].
[2024-07-15 15:00] VITALS: BP 118/52
--- NOTE | 2024-07-15 15:07 | PN.CDI ---
Addendum entered and electronically signed by Franki Callahan MD 07/15/24 16:42:
Functional Quadriplegia(complete immobility due to severe physical disability or frailty, non neurologic cause)
Original Note:
CDI
- -
CDI:
Physician Documentation Request
Admit Date: 07/13/24 17:36
Dear Doctor Sindy,
Please review the following and provide your response in the progress notes.
Clinical Indicators:
Selected Entries
07/13/24
21:00
Previous Functional Ability: Dependent
07/14/24 11:27 - Case Management Note
Met with patient who resides with her son Rosales in a 2 story house with 3 THOMAS, and first floor bedroom/bath.
#...patient was assisted with ADLs by her caregiver and is w/c bound and non-ambulatory.
#She is taken into the bathroom every 2 weeks for a shower and
#...stays in her w/c instead of transferrring to shower chair.
#The patient is able to use a slide board to get OOB to her w/c.
#She uses diapers only and does not use a commode or the toilet.
#The patient has [facility] 6hrs/day 7 days/week from 7a-6p.
#DME - hospital bed, air mattress, w/c, O2 4L, CPAP
Please provide a diagnosis associated with the patient's current functional status:
Functional Quadriplegia(complete immobility due to severe physical disability or frailty, non neurologic cause)
Generalized weakness only - without complete immobility
Other (please specify)
Hemiparesis/Hemiplegia Paraparesis/Paraplegia Quadriparesis/Quadriplegia Monoparesis/Monoplegia
Type Type Type Site
Spastic Complete Complete Upper limb
Flaccid Incomplete Incomplete Lower limb
Unable to determine Unable to Determine Unable to determine Laterality
Laterality Etiology Level Left
Left CVA, cerebral palsy, C1-C4 Right
Right injury, etc. C5-C7 Side
Unable to determine Unable to determine Dominant side
Side Etiology Nondominant side
Dominant side CVA, cerebral palsy, Etiology
Nondominant side injury, etc. CVA, cerebral palsy,
Unable to determine Functional quadriplegia injury, etc.
Etiology complete immobility due
CVA, cerebral palsy, severe physical
injury, etc. disability or frailty
Use of terms such as suspected, likely, concern for, or probable (associated with a specific diagnosis that is being evaluated, monitored, or treated as if it exists) are acceptable and can be coded in the inpatient setting, when documented at the
time of discharge.
Thank you,
Alyson Jane RN BSN CCDS
CDI Specialist
please contact via tiger text
Please use your independent medical judgment in providing your response.
--- NOTE | 2024-07-15 15:18 | PN.CDI ---
Addendum entered and electronically signed by Franki Callahan MD 07/15/24 16:43:
Left heel stage 1 pressure injury, right posterior lower leg stage 1 pressure injury, and sacrum stage 1 pressure injury, POA
Original Note:
CDI
- -
CDI:
Physician Documentation Request
Admit Date: 07/13/24 17:36
Dear Doctor Sindy,
Please review the following and provide your response in the progress notes.
Clinical Indicators:
Selected Entries
07/13/24
21:30
Pressure injury stage [Present on admission Left Heel] Stage 1
Selected Entries
07/13/24
21:30
Pressure injury stage [Present on admission Right Posterior Lower leg] Stage 1
Selected Entries
07/13/24
21:30
Pressure injury stage [Present on admission Sacrum] Stage 1
Physician documentation of the type and location of wounds is required for compliant documentation. Based on the above clinical findings and your assessment, please provide the following in your progress note:
Yes, Left heel stage 1 pressure injury, right posterior lower leg stage 1 pressure injury, and sacrum stage 1 pressure injury, POA
No, stage 1 pressure injuries
Other (please specify)
1. Location of the ulcer/wound, including laterality.
2. Type (etiology) of ulcer/wound:
- Diabetic ulcer
- Arterial (ischemic) ulcer
- Traumatic wound
- Venous stasis ulcer
- Pressure (decubitus) ulcer
3. If a pressure ulcer, please also include the stage* of the ulcer:
- Stage 1 - Skin intact, non-blanchable redness
- Stage 2 - Partial thickness loss of dermis, includes intact or open blister
- Stage 3 - Full thickness tissue not including bone, tendon or muscle
- Stage 4 - Full thickness tissue loss, including exposed bone, tendon or muscle
Use of terms such as suspected, likely, concern for, or probable (associated with a specific diagnosis that is being evaluated, monitored, or treated as if it exists) are acceptable and can be coded in the inpatient setting, when documented at the
time of discharge.
Thank you,
Alyson Jane RN BSN CCDS
CDI Specialist
please contact via tiger text
Please use your independent medical judgment in providing your response.
*Source: National Pressure Ulcer Advisory Panel (NPUAP)
[2024-07-15 22:20] VITALS: PULSE 82
[2024-07-15 23:03] VITALS: BP 113/56
[2024-07-16 03:50] VITALS: PULSE 82
[2024-07-16 07:22] VITALS: BP 113/45
[2024-07-16] MEDS: SODIUM BICARBONATE 650 MG PO ×2 (08:26→21:13)
[2024-07-16] MEDS: VITAMIN D3 (cholecalciferol) 25 MCG PO (08:26)
[2024-07-16] MEDS: PROCARDIA XL (EXTENDED RELEASE) 90 MG PO (08:26)
[2024-07-16] MEDS: FOLVITE 1 MG PO (08:28)
[2024-07-16] MEDS: ZOLOFT 50 MG PO (08:28)
[2024-07-16] MEDS: LIPITOR 40 MG PO (08:28)
[2024-07-16] MEDS: HEPARIN 5000 UNITS SC ×3 (08:29→21:13)
[2024-07-16] MEDS: DESENEX/MITRAZOL/ZEASORB 1 APPLIC TOPICAL ×2 (08:31→21:17)
[2024-07-16] MEDS: ROCEPHIN 1000 MG IV (10:06)
[2024-07-16] MEDS: STERILE WATER FOR INJECTION 10 ML IV (10:07)
--- NOTE | 2024-07-16 13:56 | W.PN.HOSP.TC ---
Today's Communication/Plan
-
Likely dc in am
Assessment / Plan
Assessment / Plan
Physical exam:
General: Comfortable and Conversant, morbidly obese
HEENT: Anicteric, Moist mucous membranes and Other (Poor dentition)
Respiratory: Clear and Non Labored Respirations
Cardiac: S1/S2 and Regular Rhythm; No Tachycardia
GI: Soft and Non Tender
Musculoskeletal: No Clubbing, No Cyanosis and Other (Chronic lower extremity edema)
Skin: Warm and Dry
Neuro: Awake, Alert, Oriented and Nonfocal/grossly intact
Psych: Calm
#Abnormal Lab work with leukocytosis, Hx of Urinary Tract Infection
Recurrent UTI
f/w blood culture
-Continue ceftriaxone
-Negative urine culture
- Repeat CBC in am
Anemia of Chronic Renal Disease
-Hold on blood transfusion. Consent scanned into the system.
-Continue to trend Hgb
-Continue with folic acid. Will do trial of IV iron. Heme test stool pending.
MOIN on CKD Stage IV
-Urine sodium 38, Bladder scan per the protocol.
Chronic Metabolic Acidosis
-Continue sodium bicarbonate
Diabetes Mellitus, Type II
Essential Hypertension
-Continue nifedipine
Hyperlipidemia
-Continue atorvastatin
Anxiety / Depression
-Continue sertraline
Morbid Obesity due to Excess Calories, BMI 44, Bed bound
-Affects all aspects of care
DVT proph: SC Heparin
Code Status: DNR
Total time spent to see the patient on the floor, examine the patient, review data and lab results, discuss treatment plan with patient, nursing staff around 55 minutes
Anticipated Discharge: Within 24 hours
Subjective/Interval History
-
Date of Service: July 16, 2024
No abd pain
No sob
Objective Data
-
Vital Signs:
Vital Signs
Temp Pulse Resp BP Pulse Ox
99.8 F 86 30 113/45 97
07/16/24 07:22 07/16/24 08:26 07/16/24 07:22 07/16/24 08:26 07/16/24 07:22
I&O
07/15/24 07/16/24 07/17/24
06:59 06:59 06:59
Intake Total 1080 / 1080 720 / 720
Balance 1080 / 1080 720 / 720
[2024-07-16 16:05] VITALS: BP 110/49
--- NOTE | 2024-07-16 17:29 | CM ---
Spoke with pt she requested home with [facility] .
[facility] set up by liaison .
Care givers number given to [facility] to contact her to set up hme visits.
Pt bed bound will need Ambulance transport home.
PLAN Home with [facility]
[2024-07-16 23:06] VITALS: BP 124/47
--- NOTE | 2024-07-17 05:04 | DOWNTIME ---
There was a [employer] Client Block Captain Downtime on 07/17/2024 from 0100 to 07/17/2024 at 0355. Downtime documentation of patient's care, including medication administrations, has been reconciled in the electronic record per guidelines. Refer to the
patient's paper chart under the miscellaneous tab to see printed paper medication records and downtime forms.
[2024-07-17 06:26] LABS: Blood Urea Nitrogen 67 mg/dl (7-17); Calcium 7.1 mg/dl (8.4-10.2); Carbon Dioxide 20 mmol/L (22-30); Chloride 104 mmol/L (98-107); Estimated Creatinine Clearance 22 ml/min; Glucose 90 mg/dl (70-99); Potassium 4.2 mmol/L (3.5-5.1); Sodium 137 mmol/L (135-145); eGFR 16.87
[2024-07-17 08:23] VITALS: BP 107/51
[2024-07-17 08:44] LABS: Hemoglobin 6.8 g/dL (12.0-16.0); Mean Corp Hgb Conc. 32.4 g/dL (33.0-37.0); Mean Corpuscular Hgb 30.1 pg (27.0-31.0); Mean Corpuscular Volume 92.9 fL (81.0-99.0); Mean Platelet Volume 11.2 fL (7.4-10.4); Platelet Count 122 10^3/uL (130-400); Red Blood Cell Count 2.26 10^6/uL (4.20-5.40); Red Cell Dist. Width 18.2 % (11.5-14.5); White Blood Cell Count 13.7 10^3/uL (4.8-10.8)
[2024-07-17] MEDS: PROCARDIA XL (EXTENDED RELEASE) 90 MG PO (09:47)
[2024-07-17] MEDS: LIPITOR 40 MG PO (09:48)
[2024-07-17] MEDS: SODIUM BICARBONATE 650 MG PO ×2 (09:48→19:56)
[2024-07-17] MEDS: VITAMIN D3 (cholecalciferol) 25 MCG PO (09:48)
[2024-07-17] MEDS: FOLVITE 1 MG PO (09:48)
[2024-07-17] MEDS: ZOLOFT 50 MG PO (09:48)
[2024-07-17] MEDS: HEPARIN 5000 UNITS SC ×2 (09:48→16:02)
[2024-07-17] MEDS: DESENEX/MITRAZOL/ZEASORB 1 APPLIC TOPICAL ×2 (09:49→19:56)
[2024-07-17] MEDS: STERILE WATER FOR INJECTION 10 ML IV (09:52)
[2024-07-17] MEDS: ROCEPHIN 1000 MG IV (09:53)
--- NOTE | 2024-07-17 12:20 | W.PN.HOSP.TC ---
Today's Communication/Plan
-
c/w empiric Flagyl
f/w cultures
Check iron panel
Assessment / Plan
Assessment / Plan
Physical exam:
General: Comfortable and Conversant, morbidly obese
HEENT: Anicteric, Moist mucous membranes and Other (Poor dentition)
Respiratory: Clear and Non Labored Respirations
Cardiac: S1/S2 and Regular Rhythm; No Tachycardia
GI: Soft and Non Tender
Musculoskeletal: No Clubbing, No Cyanosis and Other (Chronic lower extremity edema)
Skin: Warm and Dry
Neuro: Awake, Alert, Oriented and Nonfocal/grossly intact
Psych: Calm
# Vaginal discharge
Patient reported that she felt it 3-4 months ago, possible after trying pure-wick at home by the home personal care home administrator. She denies sexual interaction or being sexually assaulted. She denied history of STDs or vaginal/ uterine problems in past.
On exam, pelvic exam, no tenderness noted, no mass felt with bimanual exam, no tenderness on deep palpation. No vulvodynia. Discharge,: Whitish green, thin liquid, mild odor noted. No foreign body.
Sent urine and fluid for cultures including Gonorrhea and chlamydia. Start empiric metronidazole fro possible bacterial vaginosis, already received 4 days of IV Rocephin.
Will f/w cultures.
Recently treated for uterine fibroid.
#Abnormal Lab work with leukocytosis, Hx of Urinary Tract Infection
Recurrent UTI
Negative urine and blood culture
-Continue ceftriaxone
-Negative urine culture
- Repeat CBC in am
Anemia of Chronic Renal Disease
-Hold on blood transfusion. Consent scanned into the system.
-Continue to trend Hgb, if HGB less than 7 tomorrow, will give one unit of RBCs.
-Continue with folic acid. Will check iron panel.
MONI on CKD Stage IV
-Urine sodium 38, Bladder scan no retention.
Chronic Metabolic Acidosis
-Continue sodium bicarbonate
Diabetes Mellitus, Type II
Essential Hypertension
-Continue nifedipine
Hyperlipidemia
-Continue atorvastatin
Anxiety / Depression
-Continue sertraline
Morbid Obesity due to Excess Calories, BMI 44, Bed bound
-Affects all aspects of care
DVT proph: SC Heparin
Code Status: DNR
Total time spent to see the patient on the floor, examine the patient, review data and lab results, discuss treatment plan with patient, nursing staff around 55 minutes
Anticipated Discharge: > 48 hours
Subjective/Interval History
-
Date of Service: July 17, 2024
No abd pain, no flank pain
She denies chest pain
No fever
Objective Data
-
Labs:
Laboratory Results
07/17/24
05:18
WBC 13.7 H
Hgb 6.8 L*
Hct 21.0 L
Plt Count 122 L
Sodium 137
Potassium 4.2
Chloride 104
Carbon Dioxide 20 L
BUN 67 H
Creatinine 2.8 H
Glucose 90
Calcium 7.1 L
Vital Signs:
Vital Signs
Temp Pulse Resp BP Pulse Ox
97.9 F 83 16 107/53 99
07/17/24 08:23 07/17/24 09:47 07/17/24 08:23 07/17/24 09:47 07/17/24 08:23
I&O
07/16/24 07/17/24 07/18/24
06:59 06:59 06:59
Intake Total 720 / 720 600 / 600
Balance 720 / 720 600 / 600
[2024-07-17 15:50] VITALS: BP 102/48
[2024-07-17] MEDS: FLAGYL 500 MG PO (16:01)
[2024-07-17 22:50] VITALS: BP 130/62
[2024-07-18] VITALS (8 sets, daily range): BP systolic 98–130; BP diastolic 44–65; PULSE 86; BMI 44.7
[2024-07-18] MEDS: HEPARIN 5000 UNITS SC ×3 (00:26→16:50)
[2024-07-18] MEDS: FLAGYL 500 MG PO ×3 (00:27→16:50)
[2024-07-18 06:14] LABS: Blood Urea Nitrogen 66 mg/dl (7-17); Calcium 7.5 mg/dl (8.4-10.2); Carbon Dioxide 21 mmol/L (22-30); Chloride 105 mmol/L (98-107); Estimated Creatinine Clearance 21 ml/min; Glucose 76 mg/dl (70-99); Iron 63 ug/dl (37-170); Potassium 3.7 mmol/L (3.5-5.1); Sodium 137 mmol/L (135-145); eGFR 16.17
[2024-07-18 06:23] LABS: Hematocrit 20.6 % (37.0-47.0); Hemoglobin 6.4 g/dL (12.0-16.0); Mean Corp Hgb Conc. 31.1 g/dL (33.0-37.0); Mean Corpuscular Hgb 28.2 pg (27.0-31.0); Mean Corpuscular Volume 90.7 fL (81.0-99.0); Mean Platelet Volume 12.1 fL (7.4-10.4); Platelet Count 75 10^3/uL (130-400); Red Blood Cell Count 2.27 10^6/uL (4.20-5.40); Red Cell Dist. Width 18.2 % (11.5-14.5); White Blood Cell Count 13.1 10^3/uL (4.8-10.8)
--- NOTE | 2024-07-18 08:19 | W.PN.HOSP.TC ---
Today's Communication/Plan
-
One unit RBCs
c/w metronidazole
Await genital culture result
Assessment / Plan
Assessment / Plan
Physical exam:
General: Comfortable and Conversant, morbidly obese
HEENT: Anicteric, Moist mucous membranes and Other (Poor dentition)
Respiratory: Clear and Non Labored Respirations
Cardiac: S1/S2 and Regular Rhythm; No Tachycardia
GI: Soft and Non Tender
Musculoskeletal: No Clubbing, No Cyanosis and Other (Chronic lower extremity edema)
Skin: Warm and Dry
Neuro: Awake, Alert, Oriented and Nonfocal/grossly intact
Psych: Calm
# Vaginal discharge
No pain or discomfort per patient in her vagina/ pelvic area.
Patient reported that she felt it 3-4 months ago, possible after trying pure-wick at home by the home animal care supervisor. She denies sexual interaction or being sexually assaulted. She denied history of STDs or vaginal/ uterine problems in past. Recently
treated for hemorrhagic uterine fibroid s/p embolization.
On exam, pelvic exam, no tenderness noted, no mass felt with bimanual exam, no tenderness on deep palpation. No vulvodynia. Discharge,: Whitish green, thin liquid, mild odor noted. No foreign body.
Sent urine and fluid for cultures
Negative PCR for Gonorrhea and chlamydia. Started empiric metronidazole for possible bacterial vaginosis, already received 4 days of IV Rocephin.
Will f/w genital cultures.
#Abnormal Lab work with leukocytosis, Hx of Urinary Tract Infection
Recurrent UTI
Negative urine and blood culture
-Continue ceftriaxone
-Negative urine culture
- Repeat CBC in am
Anemia of Chronic Renal Disease
- Will give one unit 07/18/24. Consent scanned into the system.
-Continue with folic acid. Normal iron level.
MONI on CKD Stage V
Primary director project management Dr Kaiser
-Urine sodium 38, Bladder scan no retention.
Chronic Metabolic Acidosis
-Continue sodium bicarbonate
#Essential Hypertension
-Continue nifedipine
Hyperlipidemia
-Continue atorvastatin
Anxiety / Depression
-Continue sertraline
Morbid Obesity due to Excess Calories, BMI 44, Bed bound
-Affects all aspects of care
DVT proph: SC Heparin
Code Status: DNR
Total time spent to see the patient on the floor, examine the patient, review data and lab results, discuss treatment plan with patient, nursing staff around 55 minutes
Anticipated Discharge: 24 - 48 hours
Subjective/Interval History
-
Date of Service: July 18, 2024
Objective Data
-
Labs:
Laboratory Results
07/18/24
05:16
WBC 13.1 H
Hgb 6.4 L*
Hct 20.6 L*
Plt Count 75 L D
Sodium 137
Potassium 3.7
Chloride 105
Carbon Dioxide 21 L
BUN 66 H
Creatinine 2.9 H
Glucose 76
Calcium 7.5 L
Vital Signs:
Vital Signs
Temp Pulse Resp BP Pulse Ox
97.6 F 81 16 121/47 100
07/18/24 07:52 07/18/24 07:52 07/18/24 07:52 07/18/24 07:52 07/18/24 07:52
I&O
07/17/24 07/18/24 07/19/24
06:59 06:59 06:59
Intake Total 600 / 600 600 / 600
Balance 600 / 600 600 / 600
[2024-07-18] MEDS: PROCARDIA XL (EXTENDED RELEASE) 90 MG PO (09:19)
[2024-07-18] MEDS: VITAMIN D3 (cholecalciferol) 25 MCG PO (09:20)
[2024-07-18] MEDS: ZOLOFT 50 MG PO (09:20)
[2024-07-18] MEDS: FOLVITE 1 MG PO (09:20)
[2024-07-18] MEDS: LIPITOR 40 MG PO (09:20)
[2024-07-18] MEDS: SODIUM BICARBONATE 650 MG PO ×2 (09:20→19:41)
[2024-07-18] MEDS: DESENEX/MITRAZOL/ZEASORB 1 APPLIC TOPICAL ×2 (09:21→19:41)
--- NOTE | 2024-07-18 16:03 | CM ---
Awaiting culture reports.
Pt anemic received one unit of PRBCs.
Pt awake alert she requested home with [facility] .
[facility] set up by liaison .
Care givers number given to [facility] to contact her to set up home visits.
Pt bed bound will need Ambulance transport home.
PLAN Home with [facility]
[2024-07-19] VITALS (10 sets, daily range): BP systolic 83–114; BP diastolic 43–62; PULSE 85
[2024-07-19] MEDS: HEPARIN 5000 UNITS SC ×3 (00:30→20:55)
[2024-07-19] MEDS: FLAGYL 500 MG PO ×3 (00:30→20:55)
[2024-07-19 09:38] LABS: Hematocrit 24.1 % (37.0-47.0); Hemoglobin 7.8 g/dL (12.0-16.0); Mean Corp Hgb Conc. 32.4 g/dL (33.0-37.0); Mean Corpuscular Hgb 29.2 pg (27.0-31.0); Mean Corpuscular Volume 90.3 fL (81.0-99.0); Mean Platelet Volume 12.2 fL (7.4-10.4); Platelet Count 64 10^3/uL (130-400); Red Blood Cell Count 2.67 10^6/uL (4.20-5.40); Red Cell Dist. Width 18.6 % (11.5-14.5); Reticulocyte Count 2.4 % (0.4-2.8); White Blood Cell Count 12.3 10^3/uL (4.8-10.8)
[2024-07-19 10:12] LABS: Blood Urea Nitrogen 65 mg/dl (7-17); Calcium 7.5 mg/dl (8.4-10.2); Carbon Dioxide 20 mmol/L (22-30); Chloride 106 mmol/L (98-107); Estimated Creatinine Clearance 21 ml/min; Glucose 68 mg/dl (70-99); Iron 84 ug/dl (37-170); LDH 271 U/L (120-246); Potassium 3.3 mmol/L (3.5-5.1); Sodium 139 mmol/L (135-145); eGFR 16.17
[2024-07-19 10:21] LABS: Percent Saturation 95 % (20-50); Total Iron Binding Capacity 88 ug/dl (265-497)
--- NOTE | 2024-07-19 10:41 | W.PN.HOSP.TC ---
Today's Communication/Plan
-
f/w hematology recommendations
c/w Flagyl for total 7 days
Assessment / Plan
Assessment / Plan
Physical exam:
General: Comfortable and Conversant, morbidly obese
HEENT: Anicteric, Moist mucous membranes and Other (Poor dentition)
Respiratory: Clear and Non Labored Respirations
Cardiac: S1/S2 and Regular Rhythm; No Tachycardia
GI: Soft and Non Tender
Musculoskeletal: No Clubbing, No Cyanosis and Other (Chronic lower extremity edema)
Skin: Warm and Dry
Neuro: Awake, Alert, Oriented and Nonfocal/grossly intact
Psych: Calm
# Leukocytosis/ anemia/thrombocytopenia
s/p one unit of RBCs
Blood work is sent out
HGB 7.8 after one unit of RBC on 07/18
Consulted hematology to rule out underlying BM disease, appreciate help.
# Vaginal discharge noted n exam.
No pain or discomfort per patient in her vagina/ pelvic area.
Patient reported that she felt it 3-4 months ago, possible after trying pure-wick at home by the home complex care nurse practitioner. She denies sexual interaction or being sexually assaulted. She denied history of STDs or vaginal/ uterine problems in past. Recently
treated for hemorrhagic uterine fibroid s/p embolization.
On exam, pelvic exam, no tenderness noted, no mass felt with bimanual exam, no tenderness on deep palpation. No vulvodynia. Discharge,: Whitish green, thin liquid, mild odor noted. No foreign body.
Negative PCR for Gonorrhea and chlamydia. Started empiric metronidazole for possible bacterial vaginosis, already received 4 days of IV Rocephin.
Negative genital cultures.
Plan for Flagyl of total 7 days.
#Leukocytosis/ weakness
Abnormal Lab work with leukocytosis, Hx of Urinary Tract Infection
Recurrent UTI
Negative urine and blood culture
-s/p Ceftriaxone
# Known Anemia of Chronic Renal Disease
-Continue with folic acid. Normal iron level.
#MONI on CKD Stage V
Primary deposition operator Dr Kaiser
-Urine sodium 38, Bladder scan no retention.
#Chronic Metabolic Acidosis
-Continue sodium bicarbonate
#Essential Hypertension
-Continue nifedipine
Hyperlipidemia
-Continue atorvastatin
Anxiety / Depression
-Continue sertraline
Morbid Obesity due to Excess Calories, BMI 44, Bed bound
-Affects all aspects of care
DVT proph: SC Heparin
Code Status: DNR
Total time spent to see the patient on the floor, examine the patient, review data and lab results, discuss treatment plan with patient, nursing staff around 55 minutes
Anticipated Discharge: 24 - 48 hours
Subjective/Interval History
-
Date of Service: July 19, 2024
No fevers
No pain in abdomen or chest
Objective Data
-
Labs:
Laboratory Results
07/19/24 07/19/24
09:10 09:11
WBC 12.3 H
Hgb 7.8 L D
Hct 24.1 L
Plt Count 64 L
Sodium 139
Potassium 3.3 L
Chloride 106
Carbon Dioxide 20 L
BUN 65 H
Creatinine 2.9 H
Glucose 68 L
Calcium 7.5 L
Vital Signs:
Vital Signs
Temp Pulse Resp BP Pulse Ox
98.0 F 89 18 103/50 99
07/18/24 22:50 07/19/24 07:54 07/19/24 07:54 07/19/24 07:54 07/19/24 07:54
I&O
07/18/24 07/19/24 07/20/24
06:59 06:59 06:59
Intake Total 600 / 600 1330 / 1330
Balance 600 / 600 1330 / 1330
[2024-07-19] MEDS: PROCARDIA XL (EXTENDED RELEASE) 90 MG PO (10:45)
[2024-07-19] MEDS: FOLVITE 1 MG PO (10:45)
[2024-07-19] MEDS: ZOLOFT 50 MG PO (10:46)
[2024-07-19] MEDS: LIPITOR 40 MG PO (10:46)
[2024-07-19] MEDS: SODIUM BICARBONATE 650 MG PO ×2 (10:46→20:56)
[2024-07-19] MEDS: VITAMIN D3 (cholecalciferol) 25 MCG PO (10:46)
[2024-07-19] MEDS: DESENEX/MITRAZOL/ZEASORB 1 APPLIC TOPICAL ×2 (10:47→21:39)
[2024-07-19 11:16] LABS: Folate > 20.0 ng/ml (2.76-20); Vitamin B12 > 1000 pg/ml (239-931)
[2024-07-19 12:43] LABS: Glucose - Point of Care 80 mg/dl (70-99)
--- NOTE | 2024-07-19 13:01 | CON.ONC ---
Impression
Impression
UTI
atypical vaginal discharge
anemia
thrombocytopenia
Plan
Plan
1. Anemia - chronic - The patient appears to have chronic anemia dating back some time, w/ baseline hemoglobin over the past few months 7-8g/dl. She has CKD stage IV which could be a contributing factor affecting erythropoiesis. Furthermore, she had
atypical vaginal blood loss in April prompting uterine artery embolization. It is possible she continues to have some blood loss. Per chart atypical vaginal drainage persists, could consider gynecology evaluation. Will check iron studies w/ ferritin,
B12/ folic acid levels, reticulocyte count, LDH, haptoglobin, as well as SPEP w/ immunofixation.
2. Thrombocytopenia - Platelet count on admission was low at 113,000. It ankit to 122,000 on 07/17, though, has now dropped in the context of infection/ UTI and antibiotic therapy w/ cephalosporin to 64,000 today. Will check coagulation panel as well
as fibrinogen level. W/ bicytopenia, if counts do not improve w/ resolution of infection/ inflammatory process, could consider bone marrow evaluation.
Will continue to follow with you.
Patient History
History of Present Illness
78y/o female seen in consultation today regarding anemia.
The patient has a h/o anemia in the setting of atypical vaginal blood loss in April, undergoing IR guided uterine artery embolization at that time.
She is now admitted w/ UTI and atypical vaginal discharge. She has been on antibiotics. She does have CKD stage IV. Hemoglobin throughout hospitalization has been moderately low running in the 7-8g/dl range. Platelet count has also been
progressively declined on antibiotics from 113,000 on 07/13, to 64,000 today.
Clinically, she denies pain. No SOB, chest pain. She denies headaches. She has had some atypical vaginal discharge. No bright red blood in her stool or urine.
Past-Medical/Surgical History
PMH:
morbid obesity
vaginal blood loss - 04/24 - s/p uterine artery embolization
UTIs
CKD Stage IV
Anemia of Chronic Renal Disease
Chronic Metabolic Acidosis
Diabetes Mellitus, Type II
Essential Hypertension
Hyperlipidemia
Anxiety / Depression
Morbid Obesity
Chronically Bedridden
Past Surgical History: Reports Other
Additional Past Surgical History:
T&A (x 2)
(x 2)
Uterine Artery Embolization
Social History
Tobacco: Non-smoker
Alcohol: None
Drug: None
Family History
Family History: Not pertinent
Allergies
Allergy/AdvReac Type Severity Reaction Status Date / Time
No Known Allergies Allergy Unverified 04/12/24 17:43
Patient Medication
�Medication �Instructions �Recorded �Confirmed �Last Taken �Type
atorvastatin 40 mg tablet 40 mg PO DAILY High Cholesterol 04/12/24 07/13/24 07/12/24 History
cholecalciferol (vitamin D3) 25 25 mcg PO DAILY Supplement 04/12/24 07/13/24 07/12/24 History
mcg (1,000 unit) tablet
ferrous sulfate 324 mg (65 mg 324 mg PO DAILY Supplement 04/12/24 07/13/24 07/12/24 History
iron) tablet,delayed release
fluticasone prop.50 mcg 2 spray intranasal DAILYPRN PRN 04/12/24 07/13/24 05/26/24 History
spray,suspen-sod.chloride 0.9% rhinitis
nasal spray kit
folic acid 1 mg tablet 1 mg PO DAILY Supplement 04/12/24 07/13/24 07/12/24 History
pvngbbjx-dbk-ortk 4 mg-folic acid 1 tab PO DAILY Supplement 04/12/24 07/13/24 07/12/24 History
200 mcg-vit K 25 mcg-lutein tablet
(Centrum Minis Women 50 Plus)
sertraline 50 mg tablet 50 mg PO DAILY Mental 04/12/24 07/13/24 07/12/24 History
Health/Anxiety
sodium bicarbonate 650 mg tablet 650 mg PO BID Kidney issues 04/12/24 07/13/24 07/12/24 History
nifedipine 30 mg tablet,extended 90 mg (3 x 30 mg) PO DAILY Blood 04/19/24 07/13/24 07/12/24 Rx
release pressure #30 tabs
lactobacillus combination no.4 3 3,000 mmu cells PO DAILY 05/27/24 07/13/24 07/12/24 History
billion cell capsule (Probiotic) Gastrointestinal Issue
Active Medications
Generic Name Dose Route Start Last Admin
Trade Name Freq PRN Reason Stop Dose Admin
Acetaminophen 650 mg 07/13/24 20:32
Acetaminophen 325 Mg Tablet PO 08/10/24 20:31
Q4HPRN PRN
mild pain/ fever>100.5F
Atorvastatin Calcium 40 mg 07/14/24 08:00 07/19/24 10:46
Atorvastatin (Lipitor) 40 Mg Tablet PO 08/11/24 07:59 40 mg
DAILY NALLELY Administration
Cholecalciferol 25 mcg 07/14/24 08:00 07/19/24 10:46
Cholecalciferol (Vitamin D3) 25 Mcg Tablet (1,000 Units) PO 08/11/24 07:59 25 mcg
DAILY NALLELY Administration
Folic Acid 1 mg 07/14/24 08:00 07/19/24 10:45
Folic Acid 1 Mg Tablet PO 08/11/24 07:59 1 mg
DAILY NALLELY Administration
Heparin Sodium 5,000 units 07/19/24 20:00
Heparin 5,000 Units/Ml 1 Ml Vial SC 08/16/24 19:59
Q12 NALLELY
Sodium Chloride 500 mls @ 1,000 mls/hr 07/19/24 13:00
Nss IV 07/19/24 13:29
BOLUS ONE
Metronidazole 500 mg 07/19/24 20:00
Metronidazole 500 Mg Tablet PO 07/24/24 08:01
BID NALLELY
Miconazole Nitrate 0 applic 07/14/24 08:00 07/19/24 10:47
Miconazole Powder Bottle TOPICAL 08/11/24 07:59 1 applic
BID NALLELY Administration
Nifedipine 90 mg 07/14/24 08:00 07/19/24 10:45
Nifedipine 30 Mg Extended Release Tablet PO 08/11/24 07:59 90 mg
DAILY NALLELY Administration
Sertraline HCl 50 mg 07/14/24 08:00 07/19/24 10:46
Sertraline 50 Mg Tablet PO 08/11/24 07:59 50 mg
DAILY NALLELY Administration
Sodium Bicarbonate 650 mg 07/13/24 20:32 07/19/24 10:46
Sodium Bicarbonate 650 Mg Tablet PO 08/10/24 20:31 650 mg
BID NALLELY Administration
Sodium Chloride 0 flush 07/13/24 21:00
Sodium Chloride 0.9% (Flush) Syringe IV 08/10/24 20:59
PER PROTOCOL NALLELY
Review of Systems
-
A limited ROS was performed w/ findings as per HPI.
Physical Exam
-
General: Well Developed and Morbidly Obese
HEENT: Negative Jaundice
Cardiology: Normal Sinus Rhythm
Pulmonary: Clear
GI: Soft
Labs
Lab Results
WBC 12.3 10^3/uL (4.8-10.8) H 07/19/24 09:10
RBC 2.67 10^6/uL (4.20-5.40) L 07/19/24 09:10
Hgb 7.8 g/dL (12.0-16.0) L D 07/19/24 09:10
Hct 24.1 % (37.0-47.0) L 07/19/24 09:10
MCV 90.3 fL (81.0-99.0) 07/19/24 09:10
MCH 29.2 pg (27.0-31.0) 07/19/24 09:10
MCHC 32.4 g/dL (33.0-37.0) L 07/19/24 09:10
RDW 18.6 % (11.5-14.5) H 07/19/24 09:10
Plt Count 64 10^3/uL (130-400) L 07/19/24 09:10
MPV 12.2 fL (7.4-10.4) H 07/19/24 09:10
Abs Immat Gran (auto) 0.2 10^3/uL (0-0.05) H 07/15/24 09:06
Absolute Neuts (auto) 16.3 10^3/uL (1.4-6.5) H 07/15/24 09:06
Absolute Lymphs (auto) 1.2 10^3/uL (1.2-3.4) 07/15/24 09:06
Absolute Monos (auto) 1.1 10^3/uL (0.1-0.6) H 07/15/24 09:06
Absolute Eos (auto) 0.0 10^3/uL (0-0.7) 07/15/24 09:06
Absolute Basos (auto) 0.1 10^3/uL (0-0.2) 07/15/24 09:06
Immature Gran % 1.2 % (0-0.5) H 07/15/24 09:06
Neutrophils % 85.8 % (42.2-75.2) H 07/15/24 09:06
Lymphocytes % 6.5 % (20.5-51.1) L 07/15/24 09:06
Monocytes % 5.6 % (1.7-9.3) 07/15/24 09:06
Eosinophils % 0.2 % (0-6) 07/15/24 09:06
Basophils % 0.7 % (0-2) 07/15/24 09:06
Creatinine 2.9 mg/dL (0.6-1.0) H 07/19/24 09:11
Vital Signs
Vital Signs
Temp Pulse Resp BP Pulse Ox
98.4 F 94 16 83/48 99
07/19/24 12:53 07/19/24 12:53 07/19/24 12:53 07/19/24 12:53 07/19/24 12:53
[2024-07-19] MEDS: NSS 500 IV (13:49)
--- NOTE | 2024-07-19 16:25 | CM ---
Pt awake alert she requested home with [facility] .
[facility] set up by liaison.
Care givers number given to [facility] to contact her to set up home visits.
Pt bed bound will need Ambulance transport home.
Pt needs [facility] Medical nec form completed on chart.
PLAN Home with [facility]
[2024-07-20 00:46] VITALS: BP 102/51
[2024-07-20 08:05] VITALS: BP 140/57
[2024-07-20] MEDS: ZOLOFT 50 MG PO (08:23)
[2024-07-20] MEDS: SODIUM BICARBONATE 650 MG PO ×2 (08:23→20:48)
[2024-07-20] MEDS: FOLVITE 1 MG PO (08:23)
[2024-07-20] MEDS: FLAGYL 500 MG PO ×2 (08:23→20:48)
[2024-07-20] MEDS: LIPITOR 40 MG PO (08:23)
[2024-07-20] MEDS: DESENEX/MITRAZOL/ZEASORB 1 APPLIC TOPICAL ×2 (08:24→20:48)
[2024-07-20] MEDS: VITAMIN D3 (cholecalciferol) 25 MCG PO (08:24)
[2024-07-20] MEDS: HEPARIN 5000 UNITS SC ×2 (08:24→20:48)
[2024-07-20 10:30] LABS: Hematocrit 30.2 % (37.0-47.0); Hemoglobin 10.1 g/dL (12.0-16.0); Mean Corp Hgb Conc. 33.4 g/dL (33.0-37.0); Mean Corpuscular Hgb 28.2 pg (27.0-31.0); Mean Corpuscular Volume 84.4 fL (81.0-99.0); Mean Platelet Volume 11.4 fL (7.4-10.4); Platelet Count 63 10^3/uL (130-400); Red Blood Cell Count 3.58 10^6/uL (4.20-5.40); Red Cell Dist. Width 20.5 % (11.5-14.5); White Blood Cell Count 11.8 10^3/uL (4.8-10.8)
--- NOTE | 2024-07-20 10:34 | W.PN.HOSP.TC ---
Today's Communication/Plan
-
DC planning
f/w hematology recommendations
See note
Assessment / Plan
Assessment / Plan
Physical exam:
General: Comfortable and Conversant, morbidly obese
HEENT: Anicteric, Moist mucous membranes and Other (Poor dentition)
Respiratory: Clear and Non Labored Respirations
Cardiac: S1/S2 and Regular Rhythm; No Tachycardia
GI: Soft and Non Tender
Musculoskeletal: No Clubbing, No Cyanosis and Other (Chronic lower extremity edema)
Skin: Warm and Dry
Neuro: Awake, Alert, Oriented to self and surroundings, she followed commands.
Psych: Calm
# Leukocytosis/ anemia/thrombocytopenia
s/p 3 units of RBCs
I d/w Dr Laura, combination of anemia of chronic disease, recent UTI/ABx use/ Uterine bleeding back in April, all can result in Anemia, recommend transuion, further blood work was sent.
Blood work is sent out
HGB 7.8 after one unit of RBC on 07/18, given 2 units on 07/19, HGB is 10.1
Retic count 2.4%
Normal iron level, low TIBC, elevated Ferritin
haptoglobin is pending.
High level of vitamin B12 and folate. Serum electrophoresis is pending
Consulted hematology, appreciate help.
Primary community health nurse Dr Menjivar.
# Vaginal discharge noted on exam.
No pain or discomfort per patient in her vagina/ pelvic area.
Patient reported that she felt it 3-4 months ago, possible after trying pure-wick at home by the home neonatal intensive care unit nurse. She denies sexual interaction or being sexually assaulted. She denied history of STDs or vaginal/ uterine problems in past. Recently
treated for hemorrhagic uterine fibroid s/p embolization.
On exam, pelvic exam, no tenderness noted, no mass felt with bimanual exam, no tenderness on deep palpation. No vulvodynia. Discharge,: Whitish green, thin liquid, mild odor noted. No foreign body.
Negative PCR for Gonorrhea and chlamydia. Started empiric metronidazole for possible bacterial vaginosis, already received 4 days of IV Rocephin.
Negative genital cultures.
Plan for Flagyl of total 7 days.
# Will reach out to DOCTOR OSTEOPATHIC regarding hx of Fibroid found in April 2024 if a plan should be for follow up?
Per note Dr Pena did not recommend further treatments.
#Leukocytosis/ weakness
Abnormal Lab work with leukocytosis, Hx of Urinary Tract Infection
Recurrent UTI
Negative urine and blood culture
-s/p Ceftriaxone
#MONI on CKD Stage V
Primary summer intern Dr Kaiser
-Urine sodium 38, Bladder scan no retention.
#Chronic Metabolic Acidosis
-Continue sodium bicarbonate
#Essential Hypertension
-Continue nifedipine
Hyperlipidemia
-Continue atorvastatin
Anxiety / Depression
-Continue sertraline
Morbid Obesity due to Excess Calories, BMI 44, Bed bound
-Affects all aspects of care
DVT proph: SC Heparin
Code Status: DNR
Total time spent to see the patient on the floor, examine the patient, review data and lab results, discuss treatment plan with patient, nursing staff around 55 minutes
Anticipated Discharge: 24 - 48 hours
Subjective/Interval History
-
Date of Service: July 20, 2024
She denies pain in chest or abdomen
Objective Data
-
Labs:
Laboratory Results
07/20/24
10:10
WBC 11.8 H
Hgb 10.1 L D
Hct 30.2 L
Plt Count 63 L
Sodium Pending
Potassium Pending
Chloride Pending
Carbon Dioxide Pending
BUN Pending
Creatinine Pending
Glucose Pending
Calcium Pending
Vital Signs:
Vital Signs
Temp Pulse Resp BP Pulse Ox
97.7 F 76 18 140/57 98
07/20/24 08:05 07/20/24 08:05 07/20/24 08:05 07/20/24 08:05 07/20/24 08:05
I&O
07/19/24 07/20/24 07/21/24
06:59 06:59 06:59
Intake Total 1330 / 1330 1280 / 1280
Balance 1330 / 1330 1280 / 1280
[2024-07-20 11:00] LABS: Blood Urea Nitrogen 64 mg/dl (7-17); Calcium 7.6 mg/dl (8.4-10.2); Carbon Dioxide 19 mmol/L (22-30); Chloride 108 mmol/L (98-107); Estimated Creatinine Clearance 24 ml/min; Glucose 66 mg/dl (70-99); Sodium 139 mmol/L (135-145); eGFR 18.44
--- NOTE | 2024-07-20 13:15 | W.PN.ONC2 ---
Today's Communication / Plan
-
- hgb up to 10.1 g/dl.
- check stool hemoccult for occult GI losses without recurrent vaginal bleeding.
- UTI management per primary team.
- to start outpt PO epo agonist, heme follow up scheduled
Impression
Impression
UTI
atypical vaginal discharge
anemia
thrombocytopenia
Plan
Plan
1. Anemia - chronic - The patient appears to have chronic anemia dating back some time, w/ baseline hemoglobin over the past few months 7-8g/dl. She has CKD stage IV which could be a contributing factor affecting erythropoiesis. Furthermore, she had
atypical vaginal blood loss in April prompting uterine artery embolization. It is possible she continues to have some blood loss. Per chart atypical vaginal drainage persists, could consider gynecology evaluation.
- iron studies high however suspect bc checked after transfusion. Prior iron studies were low over past 3 months however were responding to PO repletion. No indication for IV iron. check stool hemoccult.
- B12, folate normal. retic 2.4%. LDH slightly high at 271. hapto, SPEP w/ immunofixation pending.
- hgb up to 10.1 g/dl today after 2 units.
- pt approved to start oral epo agonist Daprodustat out-pt to hopefully help with her AIKD (bed bound status makes her unable to get office injections).
2. Thrombocytopenia - Platelet count on admission was low at 113,000. It ankit to 122,000 on 07/17, though, has now dropped in the context of infection/ UTI and antibiotic therapy w/ cephalosporin to 63,000 today. Will check coagulation panel as well
as fibrinogen level. W/ bicytopenia, if counts do not improve w/ resolution of infection/ inflammatory process, could consider bone marrow evaluation.
Will continue to follow with you.
Subjective/Objective
Chief Complaint
recurrent anemia, CKD, UTI
Subjective
Sheila has no new complaints today. continues to deny vaginal bleeding, melena, BRBPR. Hgb up to 10.1 g/dl today after 2nd unit pRBCs yesterday.
Vital Signs:
Vital Signs
Temp Pulse Resp BP Pulse Ox
97.7 F 76 18 140/57 98
07/20/24 08:05 07/20/24 08:05 07/20/24 08:05 07/20/24 08:05 07/20/24 08:05
Lab Results:
Laboratory Data
WBC 11.8 10^3/uL (4.8-10.8) H 07/20/24 10:10
Hgb 10.1 g/dL (12.0-16.0) L D 07/20/24 10:10
Plt Count 63 10^3/uL (130-400) L 07/20/24 10:10
eGFR 18.44 07/20/24 10:10
Physical Exam
HEENT: No Jaundice
Cardiology: Normal Sinus Rhythm
Pulmonary: No Clear
GI: Soft; No Distended
Extremities: Phlebitic Signs and Edema
Neuro: Non Focal
Review of Systems
Review of Systems
Constitutional: Reports Fatigue; Denies Fever
Respiratory: Denies Dyspnea
Cardiovascular: Denies Chest Pain
Gastrointestinal: Denies Nausea/Vomiting or Diarrhea
Genitourinary: Denies Hematuria
[2024-07-20 15:35] VITALS: BP 101/58
[2024-07-20 23:26] VITALS: BP 116/60
[2024-07-21 06:49] LABS: Blood Urea Nitrogen 63 mg/dl (7-17); Calcium 7.6 mg/dl (8.4-10.2); Carbon Dioxide 20 mmol/L (22-30); Chloride 110 mmol/L (98-107); Estimated Creatinine Clearance 25 ml/min; Glucose 66 mg/dl (70-99); Potassium 3.2 mmol/L (3.5-5.1); Sodium 142 mmol/L (135-145); eGFR 19.32
[2024-07-21 07:00] VITALS: BP 102/45
[2024-07-21] MEDS: LIPITOR 40 MG PO (10:22)
[2024-07-21] MEDS: FOLVITE 1 MG PO (10:22)
[2024-07-21] MEDS: SODIUM BICARBONATE 650 MG PO ×2 (10:22→20:38)
[2024-07-21] MEDS: VITAMIN D3 (cholecalciferol) 25 MCG PO (10:22)
[2024-07-21] MEDS: ZOLOFT 50 MG PO (10:22)
[2024-07-21] MEDS: FLAGYL 500 MG PO ×2 (10:22→20:38)
[2024-07-21] MEDS: HEPARIN 5000 UNITS SC ×2 (10:23→20:38)
[2024-07-21] MEDS: DESENEX/MITRAZOL/ZEASORB 1 APPLIC TOPICAL ×2 (10:23→20:38)
--- NOTE | 2024-07-21 11:00 | W.PN.HOSP.TC ---
Today's Communication/Plan
-
MRI brain, updated her brother POA
Will do rectal exam today
Assessment / Plan
Assessment / Plan
Physical exam:
General: Comfortable and Conversant, morbidly obese
HEENT: Anicteric, Moist mucous membranes and Other (Poor dentition)
Respiratory: Clear and Non Labored Respirations
Cardiac: S1/S2 and Regular Rhythm; No Tachycardia
GI: Soft and Non Tender
Musculoskeletal: No Clubbing, No Cyanosis and Other (Chronic lower extremity edema)
Skin: Warm and Dry
Neuro: Awake, Alert, Oriented to self and surroundings, she followed commands.
Psych: Calm
# Leukocytosis/ anemia/thrombocytopenia
s/p 3 units of RBCs
I d/w Dr Laura, combination of anemia of chronic disease, recent UTI/ABx use/ Uterine bleeding back in April, all can result in Anemia, recommend transfusion, further blood work was sent.
Blood work is sent out
HGB 7.8 after one unit of RBC on 07/18, given 2 units on 07/19, HGB is 10.1
Retic count 2.4%
Check stool for + blood.
Normal iron level, low TIBC, elevated Ferritin
haptoglobin is pending.
High level of vitamin B12 and folate. Serum electrophoresis is pending
Consulted hematology, appreciate help.
Primary gm Dr Menjivar. Per Dr Menjivar: outpt PO epo agonist.
# Vaginal discharge noted on exam.
No pain or discomfort per patient in her vagina/ pelvic area.
Patient reported that she felt it 3-4 months ago, possible after trying pure-wick at home by the home infant childcare provider. She denies sexual interaction or being sexually assaulted. She denied history of STDs or vaginal/ uterine problems in past. Recently
treated for hemorrhagic uterine fibroid s/p embolization.
On exam, pelvic exam, no tenderness noted, no mass felt with bimanual exam, no tenderness on deep palpation. No vulvodynia. Discharge,: Whitish green, thin liquid, mild odor noted. No foreign body.
Negative PCR for Gonorrhea and chlamydia. Started empiric metronidazole for possible bacterial vaginosis, already received 4 days of IV Rocephin.
Negative genital cultures.
Plan for Flagyl of total 7 days. Day # 5 ( started on 07/17)
# I d/w [employer] doctor network systems consultant regarding hx of Fibroid found in April 2024. Per note Dr Pena in April, not recommend further treatments.
[employer]: Since no more vaginal bleeding , recommend monitoring at this stage otherwise can do vaginal US if needed.
#Leukocytosis/ weakness upon presentation as chief complaints
Abnormal Lab work with leukocytosis, Hx of Urinary Tract Infection
Recurrent UTI
WBC came down
Negative urine and blood culture
-s/p Ceftriaxone
- patient remains to show weakness, periods of confusion, on/ off slurred speech despite optimizing her blood work/vital signs, WBC coming down, no fevers, will do brain MRI. I d/w her Brother Guero over the phone.
#MONI on CKD Stage V
Primary wooden tank erector Dr Kaiser
-Urine sodium 38, Bladder scan no retention.
#Chronic Metabolic Acidosis
-Continue sodium bicarbonate
#Essential Hypertension
-Continue nifedipine
Hyperlipidemia
-Continue atorvastatin
Anxiety / Depression
-Continue sertraline
Morbid Obesity due to Excess Calories, BMI 44, Bed bound
-Affects all aspects of care
DVT proph: SC Heparin
Code Status: DNR
Total time spent to see the patient on the floor, examine the patient, review data and lab results, discuss treatment plan with patient, nursing staff around 55 minutes
Anticipated Discharge: 24 - 48 hours
Subjective/Interval History
-
Date of Service: July 21, 2024
No pain per patient
she denied vaginal bleeding
Objective Data
-
Labs:
Laboratory Results
07/21/24
05:37
Sodium 142
Potassium 3.2 L
Chloride 110 H
Carbon Dioxide 20 L
BUN 63 H
Creatinine 2.5 H
Glucose 66 L
Calcium 7.6 L
Vital Signs:
Vital Signs
Temp Pulse Resp BP Pulse Ox
97.5 F 68 19 102/45 98
07/21/24 07:00 07/21/24 07:00 07/21/24 07:00 07/21/24 07:00 07/21/24 07:00
I&O
07/20/24 07/21/24 07/22/24
06:59 06:59 06:59
Intake Total 1280 / 1280 420 / 420
Balance 1280 / 1280 420 / 420
[2024-07-21 12:30] LABS: Haptoglobin 209 mg/dL (30-200)
[2024-07-21 15:00] VITALS: BP 98/57
[2024-07-21 23:24] VITALS: BP 96/45
[2024-07-22 07:28] VITALS: BP 118/61
--- NOTE | 2024-07-22 07:57 | W.PN.HOSP.TC ---
Today's Communication/Plan
-
NEED POTASSIUM (AND BMP) RECHECKED BROOKE TONIGHT -- PATIENT MAY NEED MORE POTASSIUM
Monitor on telemetry
Strokes on MRI brain -- appreciate neurology -- may need to consult cardiology and have MINA performed -- neurology will let me know
Assessment / Plan
Assessment / Plan
Physical Exam
General: Not in acute distress
HEENT: Normocephalic
Respiratory: Clear to Auscultation Bilaterally
Cardiac: S1/S2 and Regular Rhythm
GI: Soft and Non Tender. Positive bowel sounds.
Musculoskeletal: No Cyanosis and Other (Chronic lower extremity edema)
Skin: Warm and Dry
Neuro: Awake, Alert, Oriented to self and surroundings, she followed commands.
Psych: Calm
Assessment/Plan
#Presentation with generalized weakness and low Hgb
#Leukocytosis/ anemia/thrombocytopenia
Reported baseline Hgb is in the high 7's range
s/p 3 units of RBCs
Dr. Callahan d/w Dr Laura, combination of anemia of chronic disease, recent UTI/ABx use/ Uterine fibroid bleeding back in April, all can result in Anemia, recommend transfusion, further blood work was sent.
Blood work was sent out
HGB 7.8 after one unit of RBC on 07/18, given 2 units on 07/19, HGB is 10.1 (patient received total of 3 units PRBCs this admission)
Retic count 2.4%
Check stool for + blood.
Normal iron level, low TIBC, elevated Ferritin
Haptoglobin mildly elevated at 209
High level of vitamin B12 and folate. Serum electrophoresis.
Consulted hematology, appreciate help.
Primary cardroom drawing runner Dr Menjivar. Per Dr Menjivar: outpt PO epo agonist.
#Weak/ confused at times, slurred speech
#Stroke on MRI Brain
-Continue Lipitor 40 mg daily
-MRI Brain showed strokes
-Aspirin 81 mg daily okay to start as per neurology and hematology -- can eventually start Plavix 75 mg daily if platelets remain above 50k and cardiology is okay with that
-Discussing with cardiology regarding possibility of cardiology consult/MINA
-Continue Neurochecks and NIH per unit guidelines
-Follow-up on LDL and HbA1c
# Vaginal discharge noted on exam.
No pain or discomfort per patient in her vagina/ pelvic area.
Patient reported that she felt it 3-4 months ago, possible after trying pure-wick at home by the home healthcare specialist. She denies sexual interaction or being sexually assaulted. She denied history of STDs or vaginal/ uterine problems in past. Recently
treated for hemorrhagic uterine fibroid s/p embolization.
On exam, pelvic exam, no tenderness noted, no mass felt with bimanual exam, no tenderness on deep palpation. No vulvodynia. Discharge,: Whitish green, thin liquid, mild odor noted. No foreign body.
Negative PCR for Gonorrhea and chlamydia. Continue empiric metronidazole for possible bacterial vaginosis, already received 4 days of IV Rocephin.
Negative genital cultures.
Plan for Flagyl of total 7 days. Day # 5 ( started on 07/17)
-Dr. Callahan discussed with military pilot physician on-call regarding history of Fibroid found in April 2024. Per note Dr Pena in April, not recommend further treatments.
PREP COOK: Since no more vaginal bleeding , recommend monitoring at this stage otherwise can do vaginal US if needed.
#Leukocytosis/ weakness upon presentation as chief complaints
Abnormal Lab work with leukocytosis, Hx of Urinary Tract Infection
Recurrent UTI
WBC came down
Negative urine and blood culture
-s/p Ceftriaxone
- patient remains to show weakness, periods of confusion, on/ off slurred speech despite optimizing her blood work/vital signs, WBC coming down, no fevers, will do brain MRI. I d/w her Brother Guero over the phone.
#Severe Hypokalemia
-PO and IV replacement ordered on 07/22/24
-Recheck BMP
-Check magnesium
#MONI on CKD Stage V
Primary transit survey worker Dr Kaiser
-Urine sodium 38, Bladder scan no retention.
#Chronic Metabolic Acidosis
-Continue sodium bicarbonate
#Essential Hypertension
-Nifedipine stopped because of low blood pressure
Hyperlipidemia
-Continue atorvastatin
Anxiety / Depression
-Continue sertraline
Chronic Ambulatory Dysfunction
Morbid Obesity due to Excess Calories, BMI 44, Bed bound
-Affects all aspects of care
Bedbound State
DVT proph: SC Heparin
Code Status: DNR
On July 22, 2024, I spoke with patient's daughter Brenda; all questions and concerns were answered to satisfaction.
Total time spent today on chart review, seeing and examining the patient, speaking with patient's daughter, reviewing orders and documentation, was 65 minutes.
Anticipated Discharge: 24 - 48 hours
Subjective/Interval History
-
Date of Service: July 22, 2024
Patient was seen and examined. She denied any new symptoms or complaints.
Objective Data
-
Labs:
Laboratory Results
07/22/24
07:31
WBC Pending
Hgb Pending
Hct Pending
Plt Count Pending
Sodium Pending
Potassium Pending
Chloride Pending
Carbon Dioxide Pending
BUN Pending
Creatinine Pending
Glucose Pending
Calcium Pending
Vital Signs:
Vital Signs
Temp Pulse Resp BP Pulse Ox
97.4 F 81 17 118/61 99
07/22/24 07:28 07/22/24 07:28 07/22/24 07:28 07/22/24 07:28 07/22/24 07:28
I&O
07/21/24 07/22/24 07/23/24
06:59 06:59 06:59
Intake Total 420 / 420 870 / 870
Balance 420 / 420 870 / 870
[2024-07-22 08:04] LABS: Hematocrit 30.5 % (37.0-47.0); Mean Corp Hgb Conc. 32.8 g/dL (33.0-37.0); Mean Corpuscular Hgb 28.3 pg (27.0-31.0); Mean Corpuscular Volume 86.4 fL (81.0-99.0); Mean Platelet Volume 12.2 fL (7.4-10.4); Platelet Count 53 10^3/uL (130-400); Red Blood Cell Count 3.53 10^6/uL (4.20-5.40); Red Cell Dist. Width 20.4 % (11.5-14.5); White Blood Cell Count 10.8 10^3/uL (4.8-10.8)
[2024-07-22] MEDS: HEPARIN 5000 UNITS SC ×2 (08:52→19:54)
[2024-07-22] MEDS: FLAGYL 500 MG PO ×2 (08:54→19:54)
[2024-07-22] MEDS: SODIUM BICARBONATE 650 MG PO ×2 (08:54→19:54)
[2024-07-22] MEDS: FOLVITE 1 MG PO (08:54)
[2024-07-22] MEDS: VITAMIN D3 (cholecalciferol) 25 MCG PO (08:54)
[2024-07-22] MEDS: LIPITOR 40 MG PO (08:54)
[2024-07-22] MEDS: ZOLOFT 50 MG PO (08:55)
--- NOTE | 2024-07-22 09:13 | CON.NEURO4 ---
Addendum entered and electronically signed by Chai Lyman MD 07/22/24 13:21:
Studies reviewed.
I have personally examined the patient. I reviewed and agree with the [employer]'s Note.
My addenda:
Awake, alert, interactive. No acute distress.
Speech intact. No tremor.
Extra-ocular movements grossly intact.
Facial movements full and symmetric. Hearing intact to normal conversational volume.
Normal UE movements bilaterally.
Neck: full ROM.
Chest: no dyspnea
Heart: no JVD
Ext: (-) Clubbing, (-) Cyanosis, (-) Edema
IMPRESSIONS/RECOMMENDATIONS:
Abrupt onset of change of speech with subsequent finding by MRI of bilateral acute ischemic strokes involving the right rostral basal ganglia and left parietal lobes
Patient currently experiencing significant anemia and thrombocytopenia
Start aspirin 81 mg daily after review with hematology
Check MRA head and neck
Follow lipid profile
Stroke educational materials to be provided
D/W patient
Will continue to follow pending results
Original Note:
Documented by User: MADISON Gentile 07/22/24 11:11
Consultation - Neurology 4
-
CONSULTING PHYSICIAN: Dr. Chai Lyman
REFERRING PHYSICIAN: Dr. Gupta
DICTATED BY: MADISON Gentile
DATE/TIME OF REQUEST: 07/22/2024 0804
DATE/TIME OF CONSULTATION: 07/22/2024
Reason for Consultation: acute strokes not on MRI brain
History of Present Illness:
This is a 78 year old (left/right) handed female with a past medical history of CKD IV, Anemia of Chronic Disease, Diabetes Mellitus, hyperlipidemia, sleep apnea and Morbid Obesity who has presented to the hospital on 07/13/2024 with low Hgb. She
has received 2 units RBC's and Hgb has improved. No clear etiology of blood loss. Per patient during her hospitalization (maybe 3 days ago) she reports she started feeling foggy and was having some trouble with her speech. She states this lasted
a few days, and has improved, but is not quite at baseline. She reports generalized weakness, but no focal weakness. She is chronically bedridden. She states that about 10 years ago she was hospitalized for a virus that effected all her muscles
including heart and lungs. She states she was intubated and in ICU for sometime. She did go to rehab for about 3 weeks after. She initially was cared for by her , but he passed about 2 years ago and is now cared for by her son and a daily
animal care service worker. She denies any trouble with vision. She denies any dizziness or headache. She denies any trouble swallowing.
MRI of the brain on 07/21/2024 showed Small acute lacunar infarcts at the superior margin of the right basal ganglia and left parietal centrum semiovale.
She has no history of stroke. She was not taking any antiplatelet medications.
Past Medical History:
CKD Stage IV
Anemia of Chronic Renal Disease
Chronic Metabolic Acidosis
Diabetes Mellitus, Type II
Essential Hypertension
Hyperlipidemia
Anxiety / Depression
Morbid Obesity
Chronically Bedridden
sleep apnea
Past Surgical History:
T&A (x 2)
(x 2)
Uterine Artery Embolization
Social History
Tobacco: Non-smoker
Alcohol: None
Drug: None
Family History: grandfather stroke, otherwise not pertinent
Allergies / Home Medications: see below
Review of Symptoms:
Patient denies any fever, headache, chest pain, shortness of breath, GI or symptoms.
�Per the HPI.�All systems are reviewed negative except above.
�
Vital Signs: see below
Physical Exam:
The patient is afebrile, S1 and S2 are regular, and chest is clear to auscultation bilaterally.
NIH Stroke Scale: see below
Neurologic Examination:
The patient is awake, alert and oriented to self, place, month and year. She is able to follow commands and answer questions appropriately. There is no aphasia or dysarthria. On cranial nerve assessment, pupils are 4 mm bilateral, round and
reactive to light and accommodation. Visual park are full. Extraocular movements are intact. Facial sensations are intact and bilaterally symmetrical, there is no facial asymmetry. Hearing is intact bilaterally to normal conversation volume.
Tongue palate and uvula are midline. Sternocleidomastoid strengths are full bilaterally. Motor strengths are 5/5 bilateral upper extremities and lower extremities are 1/5 on medical research [place] scale. There is no drift or involuntary movement
noted. Deep tendon reflexes are 2+ bilateral upper and lower extremities and Babinski is absent bilaterally. Sensations of pain, touch, temperature and vibration are intact and bilaterally symmetrical. There was no extinction noted on double
simultaneous stimulation. Coordination is intact by finger to nose bilaterally.
Lab Results: see below
Neuro Imaging: MRI brain (07/21/2024)
Small acute lacunar infarcts at the superior margin of the right basal ganglia and left parietal centrum semiovale.
Impression:
LEANDRA AGUIAR is a 78 year old F who has presented to the hospital initially with low hemoglobin and had change in cognition/speech prompting need for MRI brain. MRI showed acute strokes which can explain changes in speech and cognition
Patient has the following risk factors for their symptoms: obesity, hyperlipidemia, sleep apnea, HTN
IV Tenecteplase/IAT candidacy-unclear onset of symptoms
Recommendations:
Given (+) acute stroke would generally start DAP (for 21 days), given thrombocytopenia, I did contact Dr. Menjivar from hematology. She is OK to start ASA 81 mg daily and eventually to start Plavix if platelet stay above 50.
Will order MRA head without jaylan and MRA neck with and without jaylan, if possible given chronic renal insufficiency
Neurochecks and NIH per unit guidelines
LDL-pending
[id number]
continue Atorvastatin 40 mg
check echo
Goal normotension
Goal normoglycemia
PT/OT and speech evaluations
DVT prophylaxis per primary care team
Rest of medical management per primary care team
Discussed patient care with patient, nursing and neurologist, Dr. Lyman
Medication and Allergies
Home Medications
Home Medications
�Medication �Instructions �Recorded
atorvastatin 40 mg tablet 40 mg PO DAILY High Cholesterol 04/12/24
cholecalciferol (vitamin D3) 25 25 mcg PO DAILY Supplement 04/12/24
mcg (1,000 unit) tablet
ferrous sulfate 324 mg (65 mg 324 mg PO DAILY Supplement 04/12/24
iron) tablet,delayed release
fluticasone prop.50 mcg 2 spray intranasal DAILYPRN PRN 04/12/24
spray,suspen-sod.chloride 0.9% rhinitis
nasal spray kit
folic acid 1 mg tablet 1 mg PO DAILY Supplement 04/12/24
[id number]-bhsu 4 mg-folic acid 1 tab PO DAILY Supplement 04/12/24
200 mcg-vit K 25 mcg-lutein tablet
(Centrum Minis Women 50 Plus)
sertraline 50 mg tablet 50 mg PO DAILY Mental 04/12/24
Health/Anxiety
sodium bicarbonate 650 mg tablet 650 mg PO BID Kidney issues 04/12/24
nifedipine 30 mg tablet,extended 90 mg (3 x 30 mg) PO DAILY Blood 04/19/24
release pressure #30 tabs
lactobacillus combination no.4 3 3,000 mmu cells PO DAILY 05/27/24
billion cell capsule (Probiotic) Gastrointestinal Issue
Allergies
Allergies
Allergy/AdvReac Type Severity Reaction Status Date / Time
No Known Allergies Allergy Unverified 04/12/24 17:43
Vital Signs / Labs
-
Vital Signs and Labs:
Temp Pulse Resp BP Pulse Ox
97.4 F 81 17 118/61 99
07/22/24 07:28 07/22/24 07:28 07/22/24 07:28 07/22/24 07:28 07/22/24 07:28
07/22/24 07:31
07/19/24 07/22/24
09:11 07:31
RBC 3.53 L
Hgb 10.0 L
Hct 30.5 L
MCHC 32.8 L
RDW 20.4 H
Plt Count 53 L
MPV 12.2 H
Haptoglobin 209 H
NIH Stroke Score
NIH Stroke Score
Level of Consciousness: 0 - Alert
LOC Questions: 0-Answers both correctly
LOC Commands: 0-Performs both correctly
Best Horizontal Gaze: 0-Normal
Visual Park: 0=Normal, no visual loss
Facial Palsy: 0=Normal, symmetrical
Motor - Right Arm: 0=No drift 10 seconds
Motor - Left Arm: 0=No drift 10 seconds
Motor - Right Le-Partial vs. gravity
Motor - Left Le-Partial vs. gravity
Limb Ataxia: 0-Absent
Sensation: 0-Normal
Best Language: 0-No aphasia
Dysarthria: 0-Normal
Extinction and Inattention: 0-No abnormality
Total Score:: 4
Alteplase Contraindication
Reasons for NON-Tx with Thrombolytics ABSOLUTE Exclusions: Greater than 4.5 hrs from onset of sxs

Documented by User: Chai Lyman MD 07/22/24 13:14
Consultation - Neurology 4
-
CONSULTING PHYSICIAN: Dr. Chai Lyman
REFERRING PHYSICIAN: Dr. Gupta
DICTATED BY: MADISON Gentile
DATE/TIME OF REQUEST: 07/22/2024 0804
DATE/TIME OF CONSULTATION: 07/22/2024
Reason for Consultation: acute strokes not on MRI brain
History of Present Illness:
This is a 78 year old female with a past medical history of CKD IV, Anemia of Chronic Disease, Diabetes Mellitus, hyperlipidemia, sleep apnea and Morbid Obesity who has presented to the hospital on 07/13/2024 with low Hgb. She has received 2 units
RBC's and Hgb has improved. No clear etiology of blood loss. Per patient during her hospitalization (maybe 3 days ago) she reports she started feeling foggy and was having some trouble with her speech. She states this lasted a few days, and has
improved, but is not quite at baseline. She reports generalized weakness, but no focal weakness. She is chronically bedridden. She states that about 10 years ago she was hospitalized for a virus that effected all her muscles including heart and
lungs. She states she was intubated and in ICU for sometime. She did go to rehab for about 3 weeks after. She initially was cared for by her , but he passed about 2 years ago and is now cared for by her son and a daily animal care service worker. She
denies any trouble with vision. She denies any dizziness or headache. She denies any trouble swallowing.
MRI of the brain on 07/21/2024 showed Small acute lacunar infarcts at the superior margin of the right basal ganglia and left parietal centrum semiovale.
She has no history of stroke. She was not taking any antiplatelet medications.
Past Medical History:
CKD Stage IV
Anemia of Chronic Renal Disease
Chronic Metabolic Acidosis
Diabetes Mellitus, Type II
Essential Hypertension
Hyperlipidemia
Anxiety / Depression
Morbid Obesity
Chronically Bedridden
sleep apnea
Past Surgical History:
T&A (x 2)
(x 2)
Uterine Artery Embolization
Social History
Tobacco: Non-smoker
Alcohol: None
Drug: None
Family History: grandfather stroke, otherwise not pertinent
Allergies / Home Medications: see below
Review of Symptoms:
Patient denies any fever, headache, chest pain, shortness of breath, GI or symptoms.
�Per the HPI.�All systems are reviewed negative except above.
�
Vital Signs: see below
Physical Exam:
The patient is afebrile, S1 and S2 are regular, and chest is clear to auscultation bilaterally.
NIH Stroke Scale: see below
Neurologic Examination:
The patient is awake, alert and oriented to self, place, month and year. She is able to follow commands and answer questions appropriately. There is no aphasia or dysarthria. On cranial nerve assessment, pupils are 4 mm bilateral, round and
reactive to light and accommodation. Visual park are full. Extraocular movements are intact. Facial sensations are intact and bilaterally symmetrical, there is no facial asymmetry. Hearing is intact bilaterally to normal conversation volume.
Tongue palate and uvula are midline. Sternocleidomastoid strengths are full bilaterally. Motor strengths are 5/5 bilateral upper extremities and lower extremities are 1/5 on medical research [place] scale. There is no drift or involuntary movement
noted. Deep tendon reflexes are 2+ bilateral upper and lower extremities and Babinski is absent bilaterally. Sensations of pain, touch, temperature and vibration are intact and bilaterally symmetrical. There was no extinction noted on double
simultaneous stimulation. Coordination is intact by finger to nose bilaterally.
Lab Results: see below
Neuro Imaging: MRI brain (07/21/2024)
Small acute lacunar infarcts at the superior margin of the right basal ganglia and left parietal centrum semiovale.
Impression:
LEANDRA AGUIAR is a 78 year old F who has presented to the hospital initially with low hemoglobin and had change in cognition/speech prompting need for MRI brain. MRI showed acute strokes which can explain changes in speech and cognition
Patient has the following risk factors for their symptoms: obesity, hyperlipidemia, sleep apnea, HTN
IV Tenecteplase/IAT candidacy-unclear onset of symptoms
Recommendations:
Given (+) acute stroke would generally start DAP (for 21 days), given thrombocytopenia, I did contact Dr. Menijvar from hematology. She is OK to start ASA 81 mg daily and eventually to start Plavix if platelet stay above 50.
Will order MRA head without jaylan and MRA neck with and without jaylan, if possible given chronic renal insufficiency
Neurochecks and NIH per unit guidelines
LDL-pending
[id number]
continue Atorvastatin 40 mg
check echo
Goal normotension
Goal normoglycemia
PT/OT and speech evaluations
DVT prophylaxis per primary care team
Rest of medical management per primary care team
Discussed patient care with patient, nursing and neurologist, Dr. Lyman
NIH Stroke Score
NIH Stroke Score
Total Score:: 4
[2024-07-22] MEDS: DESENEX/MITRAZOL/ZEASORB 1 APPLIC TOPICAL ×2 (10:00→19:54)
[2024-07-22] MEDS: ASPIR LOW (ENTERIC COATED) 81 MG PO (10:00)
[2024-07-22 11:55] LABS: Blood Urea Nitrogen 66 mg/dl (7-17); Calcium 7.7 mg/dl (8.4-10.2); Carbon Dioxide 16 mmol/L (22-30); Chloride 107 mmol/L (98-107); Estimated Creatinine Clearance 24 ml/min; Glucose 77 mg/dl (70-99); HDL Cholesterol 15 mg/dl; LDL Cholesterol, Calculated 20.99999 mg/dl; Potassium 2.6 mmol/L (3.5-5.1); Sodium 139 mmol/L (135-145); Total Cholesterol < 50 mg/dl (50-199); Triglyceride 73 mg/dl (10-149); Very Low Density Lipoprotein 14 mg/dl (0-30); eGFR 18.44
[2024-07-22] MEDS: KCL 20 MEQ PO (13:01)
--- NOTE | 2024-07-22 14:05 | PTOTSP ---
Speech Therapy Evaluation:
Swallow:
Patient presents with oral stage that is generally within functional limits and suspected mild pharyngeal stage dysphagia. Patient with no overt s/sx of aspiration at bedside with thin liquids via straw, puree, or regular solids, however patient
remains at an increased risk of aspiration due to acute stroke in basal ganglia, being chronically bedridden, and dependence for ADLs.
Cognition:
Patient participated in the SLUMS and earned a score of 10/30, indicative of neurocognitive impairment per parameters of this assessment. Patient demonstrated reductions in delayed recall of 5 items, problem solving, verbal fluency, digit recall
reverse order, visuospatial for clock, command following, and paragraph recall.
Recommendations:
1. Continue IDDSI Level 7 (regular) and thin liquids
2. Medications as tolerated
3. General aspiration precautions
4. Continued ST at acute care level and following d/c to address swallowing and cognition
[2024-07-22] MEDS: KCL 260 MEQ IV (14:23)
[2024-07-22 15:41] VITALS: BP 90/49
--- NOTE | 2024-07-22 17:03 | CM ---
Pt more awake alert today.She requested home with [facility] .
[facility] set up by liaison.
Care givers at bed side.
Pt bed bound will need [facility] needed to transport home.
[facility] Medical [facility] form completed on chart.
Pt said she has been in contact with POA brother and he agrees with plan.
PLAN Home with [facility]
[2024-07-22 19:16] LABS: Blood Urea Nitrogen 65 mg/dl (7-17); Calcium 7.6 mg/dl (8.4-10.2); Carbon Dioxide 18 mmol/L (22-30); Chloride 108 mmol/L (98-107); Estimated Creatinine Clearance 25 ml/min; Glucose 101 mg/dl (70-99); Potassium 3.3 mmol/L (3.5-5.1); Sodium 139 mmol/L (135-145); eGFR 19.32
[2024-07-22 19:46] VITALS: BP 99/45
[2024-07-22 20:53] LABS: Blood Urea Nitrogen 65 mg/dl (7-17); Calcium 7.5 mg/dl (8.4-10.2); Carbon Dioxide 15 mmol/L (22-30); Chloride 110 mmol/L (98-107); Estimated Creatinine Clearance 25 ml/min; Glucose 96 mg/dl (70-99); Potassium 3.5 mmol/L (3.5-5.1); Sodium 139 mmol/L (135-145); eGFR 19.32
[2024-07-22 21:25] LABS: Albumin 1.73 g/dL (3.75-5.01); Alpha 1 Globulin 0.56 g/dL (0.19-0.46); Alpha 2 Globulin 0.73 g/dL (0.48-1.05); Free Kappa Light Chains,Quant 111.44 mg/L (3.30-19.40); Free Lambda Light Chains,Quant 119.35 mg/L (5.71-26.30); IgA 270 mg/dL (68-408); IgG 1105 mg/dL (768-1632); IgM 92 mg/dL (35-263); Immunofixation Electrophoresis IFE Done; Kappa/Lambda Fr Light Ratio 0.93 (0.26-1.65); Total Protein-Electrophoresis 5.5 g/dL (6.3-8.2)
[2024-07-22 23:14] VITALS: BP 97/55
[2024-07-23] VITALS (7 sets, daily range): BP systolic 93–102; BP diastolic 44–62; PULSE 88
[2024-07-23 05:59] LABS: Hematocrit 30.7 % (37.0-47.0); Mean Corp Hgb Conc. 32.6 g/dL (33.0-37.0); Mean Corpuscular Hgb 27.5 pg (27.0-31.0); Mean Corpuscular Volume 84.3 fL (81.0-99.0); Mean Platelet Volume 11.4 fL (7.4-10.4); Platelet Count 51 10^3/uL (130-400); Red Blood Cell Count 3.64 10^6/uL (4.20-5.40); Red Cell Dist. Width 20.4 % (11.5-14.5); White Blood Cell Count 9.5 10^3/uL (4.8-10.8)
[2024-07-23 06:04] LABS: Albumin 1.9 g/dl (3.5-5.0); Blood Urea Nitrogen 66 mg/dl (7-17); Calcium 7.6 mg/dl (8.4-10.2); Carbon Dioxide 18 mmol/L (22-30); Chloride 109 mmol/L (98-107); Estimated Creatinine Clearance 25 ml/min; Glucose 73 mg/dl (70-99); Magnesium 2.1 mg/dl (1.6-2.3); Potassium 3.2 mmol/L (3.5-5.1); Sodium 141 mmol/L (135-145); eGFR 19.32
[2024-07-23 07:46] LABS: % Basophils 0.7 % (0-2); % Eosinophils 0.5 % (0-6); % Immature Granulocytes 0.7 % (0-0.5); % Lymphocytes 9.2 % (20.5-51.1); % Monocytes 5.7 % (1.7-9.3); % Neutrophils 83.2 % (42.2-75.2); Absolute Basophils 0.1 10^3/uL (0-0.2); Absolute Eosinophils 0.1 10^3/uL (0-0.7); Absolute Immature Granulocytes 0.1 10^3/uL (0-0.05); Absolute Lymphocytes 0.9 10^3/uL (1.2-3.4); Absolute Monocytes 0.5 10^3/uL (0.1-0.6); Absolute Neutrophils 7.9 10^3/uL (1.4-6.5); Nucleated Red Blood Cells % 0 %
[2024-07-23] MEDS: HEPARIN 5000 UNITS SC (08:53)
[2024-07-23] MEDS: ZOLOFT 50 MG PO (08:53)
[2024-07-23] MEDS: ASPIR LOW (ENTERIC COATED) 81 MG PO (08:53)
[2024-07-23] MEDS: SODIUM BICARBONATE 650 MG PO ×2 (08:53→19:46)
[2024-07-23] MEDS: VITAMIN D3 (cholecalciferol) 25 MCG PO (08:53)
[2024-07-23] MEDS: FLAGYL 500 MG PO ×2 (08:53→19:46)
[2024-07-23] MEDS: LIPITOR 40 MG PO (08:53)
[2024-07-23] MEDS: DESENEX/MITRAZOL/ZEASORB 1 APPLIC TOPICAL ×2 (08:54→19:49)
[2024-07-23] MEDS: FOLVITE 1 MG PO (08:57)
[2024-07-23] MEDS: KCL 40 MEQ PO ×2 (08:58→17:58)
[2024-07-23 09:02] LABS: Glycohemoglobin (HgbA1c) 5.4 % (4.0-5.6)
--- NOTE | 2024-07-23 09:49 | W.PN.NEURO.1 ---
Today's Communication / Plan
-
Advance newly initiated aspirin 81 mg daily to dosing of 325 mg daily based on the patient's intracranial stenosis despite thrombocytopenia
Transesophageal echocardiogram may be performed as the patient experienced bihemispheric lesion simultaneously, if acceptable to manager managing
No indication for lipid-lowering agent as the patient's total cholesterol is unmeasurable and low
Neuro Assessment/Plan
Assessment
IMPRESSIONS/RECOMMENDATIONS:
Abrupt onset of change of speech with subsequent finding by MRI of bilateral acute ischemic strokes involving the right rostral basal ganglia and left parietal lobes
Patient currently experiencing significant anemia and thrombocytopenia
MRA head and neck suggestive of left M1 severe stenosis
Plan
Advance newly initiated aspirin 81 mg daily to dosing of 325 mg daily based on the patient's intracranial stenosis despite thrombocytopenia
Transesophageal echocardiogram may be performed as the patient experienced bihemispheric lesion simultaneously, if acceptable to manager managing
No indication for lipid-lowering agent as the patient's total cholesterol is unmeasurable and low
Will follow as needed.
Subjective/Objective
Subjective Data
Date of Service: July 23, 2024
Objective Data
Vital Signs
Temp Pulse Resp BP Pulse Ox
36.3 C 69 18 96/47 97
07/23/24 07:22 07/23/24 07:22 07/23/24 07:22 07/23/24 07:22 07/23/24 07:22
Lab Results
07/23/24 05:08
07/23/24 05:08
Sodium 141 mmol/L (135-145) 07/23/24 05:08
Sodium Cancelled 07/23/24 05:08
Potassium 3.2 mmol/L (3.5-5.1) L 07/23/24 05:08
Potassium Cancelled 07/23/24 05:08
BUN 66 mg/dl (7-17) H 07/23/24 05:08
BUN Cancelled 07/23/24 05:08
Glucose 73 mg/dl (70-99) 07/23/24 05:08
Glucose Cancelled 07/23/24 05:08
Calcium 7.6 mg/dl (8.4-10.2) L 07/23/24 05:08
Calcium Cancelled 07/23/24 05:08
LDL Cholesterol, Calc 20.30325 mg/dl 07/22/24 09:58
Vitamin B12 > 1000 pg/ml (239-931) H 07/19/24 09:11
Patient Allergies
No Known Allergies Allergy (Unverified 04/12/24 17:43)
Data Reviewed
-
MRA Head: Report Reviewed
MRA Neck: Report Reviewed
Labs: Report Reviewed
Reviewed with: Physician and Patient
Old Records: Summarized
--- NOTE | 2024-07-23 10:30 | W.PN.ONC2 ---
Addendum entered and electronically signed by Mabel Lau MD 07/23/24 11:38:
Case d/w primary team, cardiology
atrial tachycardia on tele is thought likely to explain her CVA. Plan to stop ASA and start Eliquis instead.
Watch for bleeding w/ thrombocytopenia (likely from infection/antibiotics), HIT brenda pending.
Original Note:
Today's Communication / Plan
-
montior CBC
check HIT panel
Impression
Impression
UTI
atypical vaginal discharge
anemia
thrombocytopenia
CVA
Plan
Plan
1. Anemia - chronic - The patient appears to have chronic anemia dating back some time, w/ baseline hemoglobin over the past few months 7-8g/dl. She has CKD stage IV which could be a contributing factor affecting erythropoiesis. Furthermore, she had
atypical vaginal blood loss in April prompting uterine artery embolization. It is possible she continues to have some blood loss. Per chart atypical vaginal drainage persists, could consider gynecology evaluation.
- iron studies high however suspect bc checked after transfusion. Prior iron studies were low over past 3 months however were responding to PO repletion. No indication for IV iron. check stool hemoccult.
- B12, folate normal. retic 2.4%. LDH slightly high at 271. hapto, Spep no M spike, elevations in K and L with normal ratio c/w inflammation or renal disease
- hgb stable > 10 g/dl after 2 units.
- pt approved to start epo agonist Daprodustat out-pt to hopefully help with her AIKD (bed bound status makes her unable to get office injections).
2. Thrombocytopenia - Platelet count on admission was low at 113,000. It ankit to 122,000 on 07/17, though, has now dropped in the context of infection/ UTI and antibiotic therapy w/ cephalosporin to 51,000 today. Will check coagulation panel as well
as fibrinogen level. W/ bicytopenia, if counts do not improve w/ resolution of infection/ inflammatory process, could consider bone marrow evaluation.
-check HIT, had been on heparin dvt ppx during May -Jun admission, 4T score intermediate
Subjective/Objective
Chief Complaint
no new complaints
Subjective
afebrile, no hypoxia or hypotension
denies pain or bleeding
Vital Signs:
Vital Signs
Temp Pulse Resp BP Pulse Ox
97.3 F 69 18 96/47 97
07/23/24 07:22 07/23/24 07:22 07/23/24 07:22 07/23/24 07:22 07/23/24 07:22
Lab Results:
Laboratory Data
WBC 9.5 10^3/uL (4.8-10.8) 07/23/24 05:08
Hgb 10.0 g/dL (12.0-16.0) L 07/23/24 05:08
Plt Count 51 10^3/uL (130-400) L 07/23/24 05:08
eGFR 19.32 07/23/24 05:08
eGFR Cancelled 07/23/24 05:08
Physical Exam
General: Well Developed and Morbidly Obese
HEENT: Negative Jaundice
Cardiology: Normal Sinus Rhythm
Pulmonary: Clear
GI: Soft
Ext b/l LE edema
Review of Systems
Review of Systems
ROS notable for subjective, otherwise negative
--- NOTE | 2024-07-23 11:35 | W.PN.HOSP.TC ---
Today's Communication/Plan
-
Replace potassium
Treat diarrhea with Imodium (C. diff came back as negative) which will help resolve severe hypokalemia
If doing better going into tomorrow, plan for discharge tomorrow
Assessment / Plan
Assessment / Plan
Physical Exam
General: Not in acute distress
HEENT: Normocephalic
Respiratory: Clear to Auscultation Bilaterally
Cardiac: S1/S2 and Regular Rhythm
GI: Soft and Non Tender. Positive bowel sounds.
Musculoskeletal: No Cyanosis and Other (Chronic lower extremity edema)
Skin: Warm and Dry
Neuro: Awake, Alert, Oriented to self and surroundings, she followed commands.
Psych: Calm
Assessment/Plan
#Presentation with generalized weakness and low Hgb
#Anemia of inflammation and renal disease/thrombocytopenia (thrombocytopenia is likely from infection/antibiotics)
-Follow-up on HIT/Cherry, which is pending
-Outpatient EPO agonist
-Reported baseline Hgb is in the high 7's range
-s/p 3 units of RBCs
-Dr. Callahan d/w Dr Laura, combination of anemia of chronic disease, recent UTI/ABx use/ Uterine fibroid bleeding back in April, all can result in Anemia, recommend transfusion, further blood work was sent.
-Check stool for + blood.
-Consulted hematology, appreciate help.
-Primary canopy inspector Dr Menjivar. Per Dr Menjivar: outpt PO epo agonist.
#Weak/ confused at times, slurred speech
#Stroke on MRI Brain
-Continue Lipitor 40 mg daily
-MRI Brain showed strokes
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
-Aspirin 81 mg daily okay to start as per neurology and hematology -- can eventually start Plavix 75 mg daily if platelets remain above 50k and cardiology is okay with that
-Discussing with cardiology regarding possibility of cardiology consult/MINA
-Continue Neurochecks and NIH per unit guidelines
-Follow-up on LDL and HbA1c (5.4%)
-Discussed MRA findings with neurosurgery and they mentioned outpatient follow-up with vascular neurology
-As per cardiology discussion with Dr. Merchant on 07/23/24, doing a MINA would not add much, and given patient is completely bedbound, patient is not a great candidate for MINA
-Eliquis started given atrial tachycardia on telemetry
-Stop antiplatelet medications (even though patient has intracranial stenosis), as advised by neurology and given ongoing thrombocytopenia and initiation of oral anticoagulation
-Above blood thinner regimen was discussed with hematology, neurology and cardiology and we are all onboard with the above regimen for blood thinner
-Closely watch for any bleeding given patient's thrombocytopenia
#Atrial Tachycardia on Telemetry
-Start Eliquis
-Consider starting a rate-controlling agent e.g. Nadolol -- will discuss with cardiology
#Vaginal discharge
#History of atypical vaginal blood loss in April prompting uterine artery embolization
-No pain or discomfort per patient in her vagina/ pelvic area.
-Patient reported that she felt it 3-4 months ago, possible after trying pure-wick at home by the home director day care center. She denies sexual interaction or being sexually assaulted. She denied history of STDs or vaginal/ uterine problems in past. Recently
treated for hemorrhagic uterine fibroid s/p embolization.
-On exam, pelvic exam, no tenderness noted, no mass felt with bimanual exam, no tenderness on deep palpation. No vulvodynia. Discharge,: Whitish green, thin liquid, mild odor noted. No foreign body.
-Negative PCR for Gonorrhea and chlamydia. Continue empiric metronidazole for possible bacterial vaginosis, already had received 4 days of IV Rocephin.
-Negative genital cultures.
-Plan for Flagyl of total 7 days. Day # 5 ( started on 07/17) -- 07/24/24 is last day
-Dr. Callahan discussed with home specialist physician on-call regarding history of Fibroid found in April 2024. Per note Dr Pena in April, not recommend further treatments.
-HAND LEATHER TRIMMER: Since no more vaginal bleeding , recommend monitoring at this stage otherwise can do vaginal US if needed.
#Leukocytosis (RESOLVED)/weakness upon presentation as chief complaints
#Recurrent UTI with recent antibiotic use (ceftriaxone)
Abnormal Lab work with leukocytosis, Hx of Urinary Tract Infection
Recurrent UTI
WBC came down
Negative urine and blood culture
-s/p Ceftriaxone
#Severe Hypokalemia - IMPROVING
-Suspected from diarrhea
-PO and IV replacement ordered on 07/22/24
-Recheck BMP
-Check magnesium
#Diarrhea
-Suspected antibiotic-associated
-C. Diff negative, so started Imodium for diarrhea
-Appreciate GI
-Probiotics
#MONI - IMPROVED - on CKD Stage IV vs. V
-Primary automation engineer is Dr. Kaiser -- follow-up closely with her outpatient
#Chronic Metabolic Acidosis
-Continue sodium bicarbonate
#Essential Hypertension
-Nifedipine stopped because of low blood pressure
Hyperlipidemia
-Continue atorvastatin
Anxiety / Depression
-Continue sertraline
Chronic Ambulatory Dysfunction
Morbid Obesity due to Excess Calories, BMI 44, Bed bound
-Affects all aspects of care
Bedbound State
DVT prophylaxis: SC Heparin
Code Status: DNR
On July 22 and 2023, I spoke with patient's daughter Brenda; all questions and concerns were answered to satisfaction.
Total time spent today on chart review, seeing and examining the patient, speaking with patient's daughter, reviewing orders and documentation, was 65 minutes.
Anticipated Discharge: 24 - 48 hours
Subjective/Interval History
-
Date of Service: July 23, 2024
Patient was seen and examined. She reported no new symptoms or complaints.
Objective Data
-
Labs:
Laboratory Results
07/23/24 07/23/24 07/23/24
05:08 05:08 05:08
WBC 9.5
Hgb 10.0 L
Hct 30.7 L
Plt Count 51 L
Sodium Cancelled 141
Potassium Cancelled 3.2 L
Chloride Cancelled
Carbon Dioxide
BUN
Creatinine
Glucose
Calcium
07/23/24 07/23/24 07/23/24
05:08 05:08 05:08
WBC
Hgb
Hct
Plt Count
Sodium
Potassium
Chloride 109 H
Carbon Dioxide Cancelled 18 L
BUN Cancelled 66 H
Creatinine Cancelled
Glucose
Calcium
07/23/24 07/23/24 07/23/24
05:08 05:08 05:08
WBC
Hgb
Hct
Plt Count
Sodium
Potassium
Chloride
Carbon Dioxide
BUN
Creatinine 2.5 H
Glucose Cancelled 73
Calcium Cancelled 7.6 L
Vital Signs:
Vital Signs
Temp Pulse Resp BP Pulse Ox
97.3 F 83 16 93/52 99
07/23/24 11:33 07/23/24 11:33 07/23/24 11:33 07/23/24 11:33 07/23/24 11:33
I&O
07/22/24 07/23/24 07/24/24
06:59 06:59 06:59
Intake Total 870 / 870 720 / 720
Balance 870 / 870 720 / 720
--- NOTE | 2024-07-23 12:24 | CON.CAR ---
Addendum entered and electronically signed by Stephon Merchant MD 07/23/24 15:04:
I saw and examined the patient.
The PRODUCTION MACHINIST or PA's note was reviewed and I agree with the note.
Comment: General: Well developed, well nourished in NAD.
Neck: Supple, no JVD, HJR, carotids +2 B/L, no bruits bilaterally.
Heart: Non displaced PMI, RRR, no murmurs, No S3, S4, no rubs.
Lungs: Clear to auscultation bilaterally, no wheeze, rhonchi, rubs bilaterally,
normal expiratory phase.
Extremities: No clubbing, cyanosis or edema bilaterally.
Neuro: Grossly nonfocal, awake, alert and oriented x3.
Sheila has a history of CKD 4, anemia of chronic disease, diabetes, sleep apnea, hyperlipidemia, obesity, chronically bedbound. She was admitted with weakness. She is found to have CVA on MRI with acute lacunar infarcts at the superior margin of
the right basal ganglia and left parietal centrum semiovale. Cardiology was consulted for possible MINA and monitoring.
Review of telemetry revealed episodes of atrial tachycardia. This could be because of embolic stroke. Discussed with primary service, neurology, hematology. Will stop aspirin and start Eliquis 5 mg p.o. twice daily. No further cardiac
recommendations. Will sign off.
Original Note:
Consultation
Consultation Request
Date/Time Consultation Requested: 07/23/2024
Date/Time Consultation Performed: 07/23/2024
Requesting Provider: Dr. Gupta
Performing Provider: Sabina Hicks PA-C for Stephon Merchant
Reason for Consultation: stroke, atrial arrhythmia
Medical History
-
History of Present Illness:
Patient is a 78 year old female with a past medical history of CKD IV, anemia of Chronic Disease, Diabetes Mellitus, hyperlipidemia, sleep apnea and Morbid Obesity who is bed bound at baseline after suffering a viral syndrome that affected all her
muscles approximately 10 years ago who has presented to the hospital on 07/13/2024 with low Hgb, 6.8. She received 3 units of blood (1 07/18/2020 for an additional 2 units on 07/19/2024) with improvement of hemoglobin to 10.1. Patient has a
history of anemia of chronic disease with CKD 4/5 with baseline hemoglobin in the 7-8 g/dl. Patient was also found to have UTI and placed on antibiotics. Several days into her admission patient developed weakness with intermittent confusion and
slurred speech. MRI of brain was performed on 07/21/2024 which showed Small acute lacunar infarcts at the superior margin of the right basal ganglia and left parietal centrum semiovale. MRA head and neck suggestive of left M1 severe stenosis.
Cardiology being asked to evaluate patient for tachycardia noted on telemetry and new bihemispheric strokes
PMH:
CKD Stage 4/5
Anemia of Chronic Renal Disease
Chronic Metabolic Acidosis
Diabetes Mellitus, Type II
Essential Hypertension
Hyperlipidemia
Anxiety / Depression
Morbid Obesity
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
sleep apnea
Vaginal bleeding with uterine artery embolization 04/20/2024
Past Medical History
Past Medical History: Other (See HPI)
Past Surgical History: , Gynecological (Uterine artery embolization April 2024) and Tonsilectomy (and adenoidectomy)
Social History
Tobacco: Non-Smoker
Alcohol: None
Drug: None
Personal:
Living: With Family (Brother and medicare biller)
Employment: Disabled
Family History
Family History: Other (Father:Alzheimer's and rheumatoid arthritis. Mother hypertension, valve replacement, obesity. Sister Lupus hypertension)
Allergies / Home Medications
Allergy/AdvReac Type Severity Reaction Status Date / Time
No Known Allergies Allergy Unverified 04/12/24 17:43
�Medication �Instructions �Recorded �Confirmed �Type
atorvastatin 40 mg tablet 40 mg PO DAILY High Cholesterol 04/12/24 07/13/24 History
cholecalciferol (vitamin D3) 25 25 mcg PO DAILY Supplement 04/12/24 07/13/24 History
mcg (1,000 unit) tablet
ferrous sulfate 324 mg (65 mg 324 mg PO DAILY Supplement 04/12/24 07/13/24 History
iron) tablet,delayed release
fluticasone prop.50 mcg 2 spray intranasal DAILYPRN PRN 04/12/24 07/13/24 History
spray,suspen-sod.chloride 0.9% rhinitis
nasal spray kit
folic acid 1 mg tablet 1 mg PO DAILY Supplement 04/12/24 07/13/24 History
pjeososj-uvs-ghgi 4 mg-folic acid 1 tab PO DAILY Supplement 04/12/24 07/13/24 History
200 mcg-vit K 25 mcg-lutein tablet
(Centrum Minis Women 50 Plus)
sertraline 50 mg tablet 50 mg PO DAILY Mental 04/12/24 07/13/24 History
Health/Anxiety
sodium bicarbonate 650 mg tablet 650 mg PO BID Kidney issues 04/12/24 07/13/24 History
nifedipine 30 mg tablet,extended 90 mg (3 x 30 mg) PO DAILY Blood 04/19/24 07/13/24 Rx
release pressure #30 tabs
lactobacillus combination no.4 3 3,000 mmu cells PO DAILY 05/27/24 07/13/24 History
billion cell capsule (Probiotic) Gastrointestinal Issue
Review of Systems
-
History Source: Patient
All other systems: Negative unless noted
Physical Exam
Vital Signs
Temp Pulse Resp BP Pulse Ox
97.3 F 83 16 93/52 99
07/23/24 11:33 07/23/24 11:33 07/23/24 11:33 07/23/24 11:33 07/23/24 11:33
GEN: No distress, awake, Ox3, lying in bed morbidly obese
HEENT: supple, anicteric, mmm
LUNGS: CTA, no wheezes/rales
CV: Reg, S1/S2, no murmur, rub or gallop
ABD: soft, BS+, NT/ND
EXT: Trace bilateral lower extremity edema, right leg with stasis changes likely from pressure
NEURO: Gross non-focal
SKIN: No rash, warm, dry, pink
Lab Results
07/23/24 05:08
07/23/24 05:08
Impression / Plan
-
PCP: Bernie Tovar
Social Services Designee: None prior to admission. Initial consultation Dr. Stephon Merchant
Primary theatrical trouper Dr Menjivar
Primary woodwind instrument repairer Dr Kaiser
Impression:
Presented 07/13/2024 with weakness and abnormal labs
Acute on chronic anemia, hemoglobin 6.8 on admission
Status post 1 unit RBCs 07/18, 2 units RBCs 07/19
UTI
Hypokalemia
New bihemispheric strokes on MRI 07/21/2024
Atrial tachycardia
CKD Stage 4/5
Anemia of Chronic Renal Disease
Chronic Metabolic Acidosis
Diabetes Mellitus, Type II
Essential Hypertension
Hyperlipidemia
Anxiety / Depression
Morbid Obesity
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
sleep apnea
Vaginal bleeding with uterine artery embolization 04/20/2024
Echo 07/22/2024: EF 55 to 60% with mild concentric LVH. No significant valvular disease
Echo 05/28/2024: EF 65 to 70%. Mild concentric LVH. No significant valvular disease.
Plan:
-Presented 07/13/2024 with weakness and abnormal labs with acute on chronic anemia, hemoglobin 6.8 and concern for UTI.
-Several days into admission patient developed confusion, speech difficulty prompting MRI of brain which showed acute lacunar infarcts in right basal ganglia and left parietal centrum ovale. MRA head and neck suggestive of left M1 severe stenosis
-Patient found to have episodes of tachycardia on telemetry. Telemetry reviewed with electrophysiology who feels patient is having runs of atrial tachycardia.
-Would consider initiation of rate reducing agent such as low-dose beta-jonna to help prevent episodes of tachycardia. We need to be conscious of blood pressure as it is soft with majority of readings 90's-low 100's/40-50's. Nadolol may be a
good option as it does little to drop blood pressure and is reasonable rate controlling agent.
-Given new bihemispheric strokes and atrial tachycardia found on telemetry there was multidisciplinary team discussion with primary service, heme-onc, neurology and cardiology with plan to initiate anticoagulation due to acute on chronic anemia as
well as thrombocytopenia. Thrombocytopenia felt to be exacerbated by infection/antibiotics from UTI. Workup ongoing by heme-onc. HIT brenda pending
-Stop antiplatelet agents given ongoing thrombocytopenia and initiation of OAC
-Discontinue heparin 07/23 am last dose and start Eliquis 5 mg twice daily 07/23/2024 PM
-Will need close monitoring of hemoglobin and platelets
-Echocardiogram noted above with preserved ejection fraction and no significant valvular disease. No role in undergoing MINA given patient being started on anticoagulation
-Hypokalemia ongoing with repletion. Patient got 40 mEq in a.m. will give an additional 40 mEq this p.m. mag stable at 2.1
-Lipids 07/22/2024 TC less than 50, HDL 15, LDL 20.9, triglycerides 73. Patient maintained on atorvastatin 40 mg as outpatient. Would consider a lower dose but not discontinued all together due to M1 stenosis
her on a lower dose
Plan discussed with patient's caregiver Brenda at bedside, brother Guero over the phone, patient, primary service, neurology, cardiology, heme-onc
HPI 07/23/2024:
Patient is a 78 year old female with a past medical history of CKD IV, anemia of Chronic Disease, Diabetes Mellitus, hyperlipidemia, sleep apnea and Morbid Obesity who is bed bound at baseline after suffering a viral syndrome that affected all her
muscles approximately 10 years ago who has presented to the hospital on 07/13/2024 with low Hgb, 6.8. She received 3 units of blood (1Unit 07/18/2020 for an additional 2 units on 07/19/2024) with improvement of hemoglobin to 10.1. Patient has a
history of anemia of chronic disease with CKD 4/5 with baseline hemoglobin in the 7-8 g/dl. Patient was also found to have UTI and placed on antibiotics. Several days into her admission patient developed weakness with intermittent confusion and
slurred speech. MRI of brain was performed on 07/21/2024 which showed Small acute lacunar infarcts at the superior margin of the right basal ganglia and left parietal centrum semiovale. MRA head and neck suggestive of left M1 severe stenosis.
Cardiology being asked to evaluate patient for tachycardia noted on telemetry and new bihemispheric strokes
Data Reviewed
-
EKG: Report Reviewed by me, Discussed with Physician, Discussed with Nurse, Discussed with Patient and Discussed with Family
MRI: Report Reviewed by me, Discussed with Physician, Discussed with Nurse, Discussed with Patient and Discussed with Family
Medical Tests (Nuc Med, Echo etc): Report Reviewed by me, Discussed with Physician, Discussed with Nurse and Discussed with Family
Labs: Labs Reviewed by me, Discussed with Physician, Discussed with Nurse, Discussed with Patient and Discussed with Family
--- NOTE | 2024-07-23 12:28 | CON.GI ---
Addendum entered and electronically signed by Felix Garcia MD 07/23/24 15:24:
I saw and examined the patient.
The MAINTENANCE OF WAY SUPERINTENDENT or PA's note was reviewed and I agree with the note.
Comment: 78yo female presents with weakness, anemia change in MS. MRI shows acute lacunar infarcts started on anticoagulation. She was also dx'd UTI and started on ceftriaxone. Then started on metronidazole fo vaginal d/c. After metronidazole,
she began with liquid diarrhea, 4-5x /day. No prior diarrhea. Last colonoscopy at [facility] about 4 yrs ago.
REC:
Probable antibiotic associated diarrhea
Check c diff
Start probiotics
If C diff negative, can use imodium
Original Note:
Consultation
-
Date/Time Consultation Requested: 07/23/24 12:06
Date/Time Consultation Performed: 07/23/24 12:28
Requesting Provider: Viktoriya Montero MD
Performing Provider: Shahla Melo MD
Reason for Consultation: Diarrhea
Medical History
Chief Complaint / HPI
Chief Complaint: Generalized Weakness
History of Present Illness:
The patient is a 78 year old female with a past medical history of CKD IV, Anemia of Chronic Disease, DM, HL, sleep apnea and Morbid Obesity who presented to the hospital on 07/13/2024 with low Hgb and generalized weakness. She received 3 units
RBC's and Hgb since her hospital admission and her Hgb level has improved. The patient reported feeling some foggy about 4 days ago and Neurology saw the patient. She was obtained brain MRI which showed small acute lacunar infarcts in the right
basal ganglia and left parietal centrum semiovale. She was started on aspirin by Neurology and was seen by Cardiology following. She was started on Eliquis on 07/23/24 due atrial tachycardia. HIT tests were ordered due her low platelet level after
admission.
The patient was diagnosed with UTI after admission and was started on Ceftriaxone and, she was also started on Metronidazole on 07/17 to address her vaginal discharge due a concern for bacterial vaginosis. The patient denied chronic diarrhea before
hospital admission and reported her diarrhea started after she was started to be given second antibiotic. She reported her diarrhea started 4-5 days ago. She denies any color change with her stool or any mucus. Reports she had a colonoscopy about 4
years ago at [facility] and it was told her that everting seems fine and she does not need another colonoscopy.
Past Medical History
Past Medical History: Arrhythmias (Diagnoased at this admission (atrial tachycardia) ), CVA (Diagnosed on 07/21/24 ), GERD (denies problem for last one year ), HTN, Hypercholesterolemia, NIDDM, Psychiatric (depression/anxiety ) and Other (Morbid
Obesity, CKD stage 4,Anemia of Chronic Renal Disease, Chronic Metabolic Acidosis, Chronically Bedridden (last 10 years) )
Past Surgical History: Other (T&A (x 2) (x 2) Uterine Artery Embolization)
Social History
Tobacco: Non-Smoker
Alcohol: None
Drug: None
Personal:
Living: With Family
Family History
Family History: Reviewed & Not Pertinent
Allergies / Home Medications
Allergy/AdvReac Type Severity Reaction Status Date / Time
No Known Allergies Allergy Unverified 04/12/24 17:43
�Medication �Instructions �Recorded
atorvastatin 40 mg tablet 40 mg PO DAILY High Cholesterol 04/12/24
cholecalciferol (vitamin D3) 25 25 mcg PO DAILY Supplement 04/12/24
mcg (1,000 unit) tablet
ferrous sulfate 324 mg (65 mg 324 mg PO DAILY Supplement 04/12/24
iron) tablet,delayed release
fluticasone prop.50 mcg 2 spray intranasal DAILYPRN PRN 04/12/24
spray,suspen-sod.chloride 0.9% rhinitis
nasal spray kit
folic acid 1 mg tablet 1 mg PO DAILY Supplement 04/12/24
jnttmmqj-dbc-piyw 4 mg-folic acid 1 tab PO DAILY Supplement 04/12/24
200 mcg-vit K 25 mcg-lutein tablet
(Centrum Minis Women 50 Plus)
sertraline 50 mg tablet 50 mg PO DAILY Mental 04/12/24
Health/Anxiety
sodium bicarbonate 650 mg tablet 650 mg PO BID Kidney issues 04/12/24
nifedipine 30 mg tablet,extended 90 mg (3 x 30 mg) PO DAILY Blood 04/19/24
release pressure #30 tabs
lactobacillus combination no.4 3 3,000 mmu cells PO DAILY 05/27/24
billion cell capsule (Probiotic) Gastrointestinal Issue
Review of Systems
-
EENT: Reports No Symptoms
Respiratory: Reports No Symptoms
Cardiac: Reports No Symptoms
Abdomen/GI: Reports No Symptoms, Diarrhea and Other (No abdominal pain, no nausea)
: Reports Other (Vaginal discharge )
Musculoskeletal: Reports Other (Ambulatory dysfunction )
Skin: Reports Other (dry )
Neurological: Reports Other (See HPI )
Vital Signs
Temp Pulse Resp BP Pulse Ox
97.3 F 83 16 93/52 99
07/23/24 11:33 07/23/24 11:33 07/23/24 11:33 07/23/24 11:33 07/23/24 11:33
Physical Exam
Exam
General: Other (Morbidly obese, bedridden )
HEENT: Normocephalic, Anicteric and Moist Mucous Membranes
Respiratory: Clear
Cardiac: S1/S2 and Regular Rhythm
GI: Soft, Non Tender, Non Distended and Other (Umblical hernia ( asymptomatic) No pain, no guarding)
Musculoskeletal: Other (Lower /upper extremity weakness )
Skin: Dry
Neuro: Awake, Alert, Oriented and AO x 3
Results
WBC 9.5 10^3/uL (4.8-10.8) 07/23/24 05:08
Hgb 10.0 g/dL (12.0-16.0) L 07/23/24 05:08
Hct 30.7 % (37.0-47.0) L 07/23/24 05:08
MCV 84.3 fL (81.0-99.0) 07/23/24 05:08
Plt Count 51 10^3/uL (130-400) L 07/23/24 05:08
Absolute Neuts (auto) 7.9 10^3/uL (1.4-6.5) H 07/23/24 05:08
Sodium 141 mmol/L (135-145) 07/23/24 05:08
Sodium Cancelled 07/23/24 05:08
Potassium 3.2 mmol/L (3.5-5.1) L 07/23/24 05:08
Potassium Cancelled 07/23/24 05:08
Chloride 109 mmol/L (98-107) H 07/23/24 05:08
Chloride Cancelled 07/23/24 05:08
Carbon Dioxide 18 mmol/L (22-30) L 07/23/24 05:08
Carbon Dioxide Cancelled 07/23/24 05:08
BUN 66 mg/dl (7-17) H 07/23/24 05:08
BUN Cancelled 07/23/24 05:08
Creatinine 2.5 mg/dL (0.6-1.0) H 07/23/24 05:08
Creatinine Cancelled 07/23/24 05:08
Calcium 7.6 mg/dl (8.4-10.2) L 07/23/24 05:08
Calcium Cancelled 07/23/24 05:08
Total Bilirubin Cancelled 07/13/24 12:11
AST Cancelled 07/13/24 12:11
ALT Cancelled 07/13/24 12:11
Alkaline Phosphatase Cancelled 07/13/24 12:11
Diagnostic Image Results:
CT Abd/pel Without Iv Or Oral ON 05/27/24:
IMPRESSION:
There is demonstration of the large, heterogeneous mass extending off the uterine fundus which is slightly decreased in size, now measuring up to 18.4 cm previously 22 cm. There is new foci of gas within the lesion which may be postprocedural
necrosis given recent uterine artery embolization, rather than superimposed infection.
Small bilateral pleural effusions with adjacent atelectasis.
Large ventral hernia containing nonobstructed bowel, similar to prior.
Cholelithiasis.
Prior GI Procedures:
EGD: No known prior EGD
Colonoscopy:Reports she had a colonoscopy 4 years ago and records are planning to be request with patient`s verbal agreement.
Assessment / Plan
-
Impression:
The patient is a 78 year old female with a PMH of CKD IV, Anemia of Chronic Disease, DM, HL, sleep apnea and Morbid Obesity who was admitted to hospital for an evaluation for low hgb level and generalized weakness. After her admission to the
hospital she received 3 units of RBC and her hgb level came back 10.00 on 07.23.24. The patient was started on ceftriaxone to address her UTI and was started on metronidazole on 07.17 to address her bacterial vaginosis. She reported having diarrhea
after she was started on metronidazole 4-5 days ago. She denies chronic diarrhea, any mucus or bloody/dark stool. She denies abdominal pain or discomfort. No fever spikes since admission and her WBC is in normal limits for last 2 days.
Assessment/Plan:
#Diarrhea likely Antibiotic-associated diarrhea (AAD)
-Denies chronic diarrhea
-Started following metronidazole treatment per patient`s report
-C diff antigen & toxins were ordered
-Florastor can be started
#Anemia:
-Has CKD which seems contributing factor to her chronic anemia
-Baseline hemoglobin over the past few months 7-8g
-Appreciated hematology involving
-Denies any dark/blood stool/abdominal pain/epigastric pain
-Had a colonoscopy 4 years ago which was not remarkable per patient`s report /Records will be requested
-Started to need transfusions a few times after her gynecological surgery since April 2024 and reports having still vaginal discharge
-Gynecology evaluation could be considered
#Hx of GERD
-Recently started Eliquis
-Recommended to restart PPI ( Patient stopped taking one year ago due not having reflux anymore) to reduce GI bleeding risk
We will follow up the patient
-
-
Thank you for consultation and allowing me to participate in the patient's care. Please call the restaurant front manager GI physician during the after hours with any questions or concerns.
[2024-07-23] MEDS: IMODIUM 2 MG PO (16:21)
[2024-07-23] MEDS: FLORASTOR 250 MG PO (16:21)
--- NOTE | 2024-07-23 16:35 | CM ---
Pt had blood transfusion . This is 3 unit.
Pt requested home with [facility] .
[facility] set up by liaison.
Care givers at bed side.
Pt bed bound will need [facility] needed to transport home.
[facility] Medical nec form completed on chart.
Pt said she has been in contact with POA brother and he agrees with plan.
PLAN Home with [facility]
[2024-07-23] MEDS: ELIQUIS 5 MG PO (19:46)
[2024-07-23] MEDS: HYDROPHOR 1 APPLIC TOPICAL (19:49)
[2024-07-23 22:43] LABS: Blood Urea Nitrogen 67 mg/dl (7-17); Calcium 7.6 mg/dl (8.4-10.2); Carbon Dioxide 14 mmol/L (22-30); Chloride 109 mmol/L (98-107); Estimated Creatinine Clearance 25 ml/min; Glucose 89 mg/dl (70-99); Potassium 4.4 mmol/L (3.5-5.1); Sodium 135 mmol/L (135-145); eGFR 19.32
[2024-07-24 03:34] VITALS: BP 98/46
[2024-07-24 05:51] LABS: Blood Urea Nitrogen 69 mg/dl (7-17); Calcium 7.7 mg/dl (8.4-10.2); Carbon Dioxide 16 mmol/L (22-30); Chloride 110 mmol/L (98-107); Estimated Creatinine Clearance 24 ml/min; Glucose 68 mg/dl (70-99); Potassium 4.3 mmol/L (3.5-5.1); Sodium 141 mmol/L (135-145); eGFR 18.44
[2024-07-24 06:22] LABS: Cortisol, Random 35.8 ug/dl
[2024-07-24 07:23] VITALS: BP 99/60
[2024-07-24 07:58] LABS: INR 3.54
[2024-07-24 07:59] LABS: APTT 57.6 Sec (23.4-35.0); Fibrinogen 602 MG/DL (199-459)
[2024-07-24 08:03] LABS: D-Dimer 2.45 ug/mlFEU (0.00-0.50)
[2024-07-24] MEDS: FLAGYL 500 MG PO (08:13)
[2024-07-24] MEDS: FLORASTOR 250 MG PO (08:13)
[2024-07-24] MEDS: FOLVITE 1 MG PO (08:13)
[2024-07-24] MEDS: SODIUM BICARBONATE 650 MG PO ×2 (08:13→15:10)
[2024-07-24] MEDS: VITAMIN D3 (cholecalciferol) 25 MCG PO (08:14)
[2024-07-24] MEDS: ZOLOFT 50 MG PO (08:14)
[2024-07-24] MEDS: LIPITOR 40 MG PO (08:14)
[2024-07-24] MEDS: ELIQUIS 5 MG PO (08:14)
[2024-07-24] MEDS: HYDROPHOR 1 APPLIC TOPICAL (08:19)
[2024-07-24] MEDS: DESENEX/MITRAZOL/ZEASORB 1 APPLIC TOPICAL (08:19)
[2024-07-24 09:03] LABS: Hematocrit 29.8 % (37.0-47.0); Hemoglobin 9.9 g/dL (12.0-16.0); Mean Corp Hgb Conc. 33.2 g/dL (33.0-37.0); Mean Corpuscular Hgb 27.6 pg (27.0-31.0); Mean Platelet Volume 10.1 fL (7.4-10.4); Platelet Count 49 10^3/uL (130-400); Red Blood Cell Count 3.59 10^6/uL (4.20-5.40); Red Cell Dist. Width 20.1 % (11.5-14.5); White Blood Cell Count 12.8 10^3/uL (4.8-10.8)
--- NOTE | 2024-07-24 09:32 | W.PN.GI.CBS2 ---
Addendum entered and electronically signed by Felix Garcia MD 07/24/24 16:16:
I saw and evaluated the patient. I reviewed the resident�s note and agree with findings and plan as documented in the resident�s note.
Diarrhea significantly improved
ABD soft NT
Stool negative C diff
REC:
Sx improved after imodium yesterday
Likely abx associated diarrhea and resolving
GI will sign off
Original Note:
Today's Communication / Plan
-
-Follow up for diarrhea and frequency
Assessment / Plan
-
Impression:
The patient is a 78 year old female with a PMH of CKD IV, Anemia of Chronic Disease, DM, HL, sleep apnea and Morbid Obesity who was admitted to hospital for an evaluation for low hgb level and generalized weakness. After her admission to the
hospital she received 3 units of RBC and her hgb level came back 9.9 on 07.24.24. The patient was started on ceftriaxone to address her UTI and was started on metronidazole on 07.17 to address her bacterial vaginosis. She reported having diarrhea
after she was started on metronidazole 4-5 days ago. Her last dose of metronidazole scheduled for today on 07/24/24. She denies chronic diarrhea, any mucus or bloody/dark stool. She denies abdominal pain or discomfort.
Assessment/Plan:
#Diarrhea likely Antibiotic-associated diarrhea (AAD)
-Denies any bowel movement this morning and reports she had 5 -6 times episodes of diarrhea yesterday.
-Continue Imodium and probiotics
-Started following metronidazole treatment per patient`s report
-C diff antigen & toxins came back negative
#Anemia:
-Has CKD which seems contributing factor to her chronic anemia
-Baseline hemoglobin over the past few months 7-8g
-Appreciated hematology involving
-Denies any dark/blood stool/abdominal pain/epigastric pain
-Had a colonoscopy 4 years ago which was not remarkable per patient`s report /Records request was ordered
We will follow up the patient
Subjective
Subjective
Date of Service: July 24, 2024
The patient was seen in her bed and reporting she did not have diarrhea since this morning. She reported feeling okay and denied abdominal pain.
Objective
Data Reviewed
Laboratory Data:
Laboratory Results
07/24/24 08:36
07/24/24 05:07
Laboratory Results
PT 36.0 Sec (11.4-14.6) H 07/24/24 06:57
INR 3.54 07/24/24 06:57
APTT 57.6 Sec (23.4-35.0) H 07/24/24 06:57
Magnesium 2.0 mg/dl (1.6-2.3) 07/24/24 05:07
Total Bilirubin Cancelled 07/13/24 12:11
AST Cancelled 07/13/24 12:11
ALT Cancelled 07/13/24 12:11
Alkaline Phosphatase Cancelled 07/13/24 12:11
Vital Signs and I&O:
Vital Signs
Temp Pulse Resp BP Pulse Ox
97.6 F 70 18 99/60 96
07/24/24 07:23 07/24/24 07:23 07/24/24 07:23 07/24/24 07:23 07/24/24 07:23
I&O
07/23/24 07/24/24 07/25/24
06:59 06:59 06:59
Intake Total 720 / 720 520 / 520
Balance 720 / 720 520 / 520
Physical Exam
Physical Exam
HEENT: Anicteric and Moist mucous membranes
Cardiology: Normal Sinus Rhythm
Pulmonary: Clear
GI: Soft, Non Distended and Non Tender
Extremities: Edema
Neuro: Other (See HPI )
[2024-07-24 10:07] LABS: Lactic Acid 1.8 mmol/L (0.7-2.0)
[2024-07-24 10:56] VITALS: BP 98/58
[2024-07-24 11:19] LABS: % Basophils 0.9 % (0-2); % Eosinophils 0.2 % (0-6); % Immature Granulocytes 1.3 % (0-0.5); % Lymphocytes 6.4 % (20.5-51.1); % Monocytes 6.2 % (1.7-9.3); Absolute Basophils 0.1 10^3/uL (0-0.2); Absolute Immature Granulocytes 0.2 10^3/uL (0-0.05); Absolute Lymphocytes 0.8 10^3/uL (1.2-3.4); Absolute Monocytes 0.8 10^3/uL (0.1-0.6); Absolute Neutrophils 10.8 10^3/uL (1.4-6.5); Nucleated Red Blood Cells % 0 %
--- NOTE | 2024-07-24 13:50 | W.PN.HOSP.TC ---
Today's Communication/Plan
-
Discharge today
Assessment / Plan
Assessment / Plan
Physical Exam
General: Not in acute distress
HEENT: Normocephalic
Respiratory: Clear to Auscultation Bilaterally
Cardiac: S1/S2 and Regular Rhythm
GI: Soft and Non Tender. Positive bowel sounds.
: No suprapubic tenderness.
Musculoskeletal: No Cyanosis and Other (Chronic lower extremity edema)
Skin: Warm and Dry
Neuro: Awake, Alert, Oriented to self and surroundings, she followed commands.
Psych: Calm
Assessment/Plan
#Presentation with generalized weakness and low Hgb
#Anemia of inflammation and renal disease/thrombocytopenia (thrombocytopenia is likely from infection/antibiotics)
-Follow-up on HIT/Cherry
-Outpatient EPO agonist
-Reported baseline Hgb is in the high 7's range
-s/p 3 units of RBCs
-Dr. Callahan d/w Dr Laura, combination of anemia of chronic disease, recent UTI/ABx use/ Uterine fibroid bleeding back in April, all can result in Anemia, recommend transfusion, further blood work was sent.
-Consulted hematology, appreciate help.
-Primary chief underwriter Dr Menjivar. Per Dr Menjivar: outpt PO epo agonist.
-I spoke on 07/24/24 with chief underwriter-oncologist Dr. Rose who mentioned that patient is okay for discharge today from hematology standpoint
-Follow-up with Dr. Lau (hem/onc) outpatient
#Leukocytosis
-No signs of infection at this time
-Patient denied any cough, shortness of breath, chest pain, fever, headache, dysuria, suprapubic pain or tenderness or any other complaints that would suggest infection
-Recheck CBC outpatient
#Weak/ confused at times, slurred speech
#Stroke on MRI Brain
-Continue Lipitor 40 mg daily
-MRI Brain showed strokes
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
-Discussing with cardiology regarding possibility of cardiology consult/MINA
-Continue Neurochecks and NIH per unit guidelines
-Follow-up on LDL and HbA1c (5.4%)
-Discussed MRA findings with neurosurgery and they mentioned outpatient follow-up with vascular neurology
-As per cardiology discussion with Dr. Merchant on 07/23/24, doing a MINA would not add much, and given patient is completely bedbound, patient is not a great candidate for MINA
-Eliquis started given atrial tachycardia on telemetry
-Stop antiplatelet medications (even though patient has intracranial stenosis), as advised by neurology and given ongoing thrombocytopenia and initiation of oral anticoagulation
-Above blood thinner regimen (i.e. stopping antiplatelet agent and doing only Eliquis) was discussed on 07/24/24, via [facility] [employer], between myself and hematology, neurology and cardiology and we are all onboard with the above
regimen for blood thinner (i.e. stopping antiplatelet agent and doing only Eliquis)
-Closely watch for any bleeding given patient's thrombocytopenia
#Atrial Tachycardia on Telemetry
-Start Eliquis
-Consider starting a rate-controlling agent e.g. Nadolol -- however patient's blood pressures are on the lower side at this time, will defer to cardiology outpatient initiation of low-dose beta-jonna to help prevent episodes of
tachycardia e.g. Nadolol (discussed this with cardiology on-call on the day of discharge and they are in agreement with this plan, giving current lower blood pressures)
#Vaginal discharge
#History of atypical vaginal blood loss in April prompting uterine artery embolization
-No pain or discomfort per patient in her vagina/ pelvic area.
-Patient reported that she felt it 3-4 months ago, possible after trying pure-wick at home by the home palliative care physician. She denies sexual interaction or being sexually assaulted. She denied history of STDs or vaginal/ uterine problems in past. Recently
treated for hemorrhagic uterine fibroid s/p embolization.
-On exam, pelvic exam, no tenderness noted, no mass felt with bimanual exam, no tenderness on deep palpation. No vulvodynia. Discharge,: Whitish green, thin liquid, mild odor noted. No foreign body.
-Negative PCR for Gonorrhea and chlamydia. Continue empiric metronidazole for possible bacterial vaginosis, already had received 4 days of IV Rocephin.
-Negative genital cultures.
-Plan for Flagyl of total 7 days. Day # 5 ( started on 07/17) -- 07/24/24 is last day
-Dr. Callahan discussed with blast furnace keeper physician on-call regarding history of Fibroid found in April 2024. Per note Dr Pena in April, not recommend further treatments.
-[employer]: Since no more vaginal bleeding , recommend monitoring at this stage otherwise can do vaginal US if needed.
#Leukocytosis (RESOLVED)/weakness upon presentation as chief complaints
#Recurrent UTI with recent antibiotic use (ceftriaxone)
Abnormal Lab work with leukocytosis, Hx of Urinary Tract Infection
Recurrent UTI
WBC came down
Negative urine and blood culture
-s/p Ceftriaxone
#Severe Hypokalemia - IMPROVING
-Suspected from diarrhea
-PO and IV replacement ordered on 07/22/24
-Recheck BMP
-Magnesium okay
-Recheck BMP and Magnesium by 07/25/24
#Diarrhea - likely Antibiotic-associated diarrhea (AAD)
-No bowel movement this morning
-C. Diff negative, so started Imodium for diarrhea
-Appreciate GI
-Continue Imodium and Probiotics
#Acute Kidney Injury - IMPROVED - on Chronic Kidney Disease Stage IV versus V
-Primary cartography teacher is Dr. Kaiser -- follow-up closely with her outpatient
#Chronic Metabolic Acidosis
-Continue sodium bicarbonate at 650 mg PO TID (confirmed this is the correct dose, as per patient's family)
#Essential Hypertension
#Low blood pressures - ASYMPTOMATIC - suspected from diarrhea
-Nifedipine stopped because of low blood pressure
-Check blood pressures at home frequently, monitor for symptoms or hypotension, follow-up with PCP office by 07/25/24
#Hyperlipidemia
-Continue atorvastatin
#Anxiety/Depression
-Continue sertraline
#Chronic Ambulatory Dysfunction
#Morbid Obesity due to Excess Calories, BMI 44, Bed bound
-Affects all aspects of care
#Bedbound State
DVT Prophylaxis: SC Heparin
Code Status: DNR
On July 22 and and 2023, I spoke with patient's daughter Brenda; all questions and concerns were answered to satisfaction.
More than 30 minutes spent in discharge including
Final examination of the patient
Summarizing hospital stay
Instructions for continuing care to all relevant caregivers
Preparation of discharge records, prescriptions, and referral forms
Total time spent (in minutes): 45
Anticipated Discharge: Today
Subjective/Interval History
-
Date of Service: July 24, 2024
Patient was seen and examined. She denied any cough, fever, chest pain, shortness of breath, abdominal pain, dysuria, urinary frequency, suprapubic pain or tenderness or any other new symptoms or complaints.
Objective Data
-
Labs:
Laboratory Results
07/24/24 07/24/24 07/24/24
05:07 06:57 08:36
WBC Cancelled 12.8 H
Hgb Cancelled 9.9 L
Hct Cancelled 29.8 L
Plt Count Cancelled 49 L
PT 36.0 H
INR 3.54
APTT 57.6 H
Sodium 141
Potassium 4.3
Chloride 110 H
Carbon Dioxide 16 L
BUN 69 H
Creatinine 2.6 H
Glucose 68 L
Calcium 7.7 L
Vital Signs:
Vital Signs
Temp Pulse Resp BP Pulse Ox
97.6 F 97 16 98/58 97
07/24/24 10:56 07/24/24 10:56 07/24/24 10:56 07/24/24 10:56 07/24/24 10:56
I&O
07/23/24 07/24/24 07/25/24
06:59 06:59 06:59
Intake Total 720 / 720 520 / 520
Balance 720 / 720 520 / 520
[2024-07-24 15:10] VITALS: BP 96/54
--- NOTE | 2024-07-24 17:17 | CM ---
MD indicated dc today to home.Care givers at bed side.
Pt bed bound will need [facility] needed to transport home.
[facility] Medical nec form completed on chart.
Pt said she has been in contact with POA brother and he agrees with plan.
IMM signed on chart.
Pt said insurance healthcare consultant will be able to meet her at home.
PLAN Home with [facility]
[2024-07-24 19:48] VITALS: BP 114/58
== END 2024-07-24 20:40 | disposition home health service (06) | DRG 689 ==
LOC: 3 WEST ACU 17:36
PROVIDERS: Hospitalist; Internal Medicine; Nurse Practitioner Acute Care; Nurse Practitioner Adult Health; Nurse Practitioner Gerontology; Physician Assistant Medical; ADMITTING PHYSICIAN Internal Medicine; ATTENDING PHYSICIAN Hospitalist; CONSULT PHYSICIAN Internal Medicine Cardiovascular Disease; CONSULT PHYSICIAN Psychiatry & Neurology Neurology; CONSULT PHYSICIAN Specialist; EMERGENCY PHYSICIAN Emergency Medicine; FAMILY PHYSICIAN Nurse Practitioner Family; OTHER PHYSICIAN Internal Medicine Hematology & Oncology
PROC: 5A09357 Assistance with Respiratory Ventilation, Less than 24 Consecutive Hours, Continuous Positive Airway Pressure (ICD-10-PCS; 2024-07-13)
PROC: 30233N1 Transfusion of Nonautologous Red Blood Cells into Peripheral Vein, Percutaneous Approach (ICD-10-PCS; 2024-07-18)
DX: N39.0 Urinary tract infection, site not specified (principal); I63.40 Cerebral infarction due to embolism of unspecified cerebral artery; R53.2 Functional quadriplegia; Z68.42 Body mass index [BMI] 45.0-49.9, adult; E87.22 Chronic metabolic acidosis; N17.9 Acute kidney failure, unspecified; N18.5 Chronic kidney disease, stage 5; I12.0 Hypertensive chronic kidney disease with stage 5 chronic kidney disease or end stage renal disease; I47.19 Other supraventricular tachycardia; K52.1 Toxic gastroenteritis and colitis; Z66 Do not resuscitate; E11.22 Type 2 diabetes mellitus with diabetic chronic kidney disease; T36.8X5A Adverse effect of other systemic antibiotics, initial encounter; N76.0 Acute vaginitis; E66.01 Morbid (severe) obesity due to excess calories; L89.621 Pressure ulcer of left heel, stage 1; L89.891 Pressure ulcer of other site, stage 1; L89.151 Pressure ulcer of sacral region, stage 1; D63.1 Anemia in chronic kidney disease; E78.5 Hyperlipidemia, unspecified; F32.A Depression, unspecified; F41.9 Anxiety disorder, unspecified; E87.6 Hypokalemia; G47.30 Sleep apnea, unspecified; D69.6 Thrombocytopenia, unspecified; K21.9 Gastro-esophageal reflux disease without esophagitis; K43.9 Ventral hernia without obstruction or gangrene; Z79.899 Other long term (current) drug therapy; Z74.01 Bed confinement status; Z82.3 Family history of stroke
CPT/HCPCS: 93308; 51701; 70544; 70548; 70551; 80048; 80061; 81003; 81015; 82040; 82533; 82570; 82607; 82728; 82746; 82784; 82962; 83010; 83036; 83521; 83540; 83550; 83605; 83615; 83735; 84155; 84165; 84300; 85025; 85027; 85045; 85379; 85384; 85610; 85730; 86334; 86850; 86900; 86901; 86920; 87040; 87070; 87075; 87086; 87324; 87449; 87491; 87591; 92507; 92523; 92526; 92610; 93321; 93325; 94660; 96374; 97163; 97167; 99284; A9585; J2916; P9016